=== PATIENT | male | born 1970 | race Caucasian/White ===

== ENCOUNTER 2016-07-31 14:20 | Outpatient (RCR) | payer MEDICAID ==
[~2016-07-31 14:20] MED LIST: CELE1CAP7 PO; CELE20TA; HYDROCODONE PO; LISI10TA4 PO; OMEP40CA2 PO; PRED50TA OR; ROBA500T PO; TRAM50TA2 PO; VICO5TAB; VITA200028 PO
== END 2016-08-25 | disposition home or self-care (01) ==
LOC: M OUTALCOH 14:20
PROVIDERS: ATTEND Psychiatry & Neurology Psychiatry
DX: F15.20 Other stimulant dependence, uncomplicated (principal)

== ENCOUNTER 2017-02-12 10:24 | Inpatient (IN) | payer MEDICAID, OTHER ==
[~2017-02-12] VITALS: Ht 175.3 cm; Wt 89.0 kg
[2017-02-12 11:11] LABS: BASO % 0.7 % (0.0-1.0); EOS # 0.1 K/mm3 (0.0-0.50); EOS % 1.4 % (0.0-3.0); LARGE UNSTAINED CELL # 0.1 K/mm3 (0.0-0.4); LYMPH # 1.4 K/mm3 (1.5-4.5); LYMPH % 19.3 % (24.0-44.0); MEAN CORPUSCULAR HEMOGLOBIN 30.6 pg (27.0-33.0); MEAN CORPUSCULAR HGB CONC 34.8 g/dl (32.0-36.5); MONO # 0.3 K/mm3 (0.0-0.8); MONO % 5.3 % (0.0-5.0); NEUTROPHILS # 4.6 K/mm3 (1.8-7.7); NEUTROPHILS % 71.3 % (36.0-66.0); PLATELET COUNT, AUTOMATED 195 k/mm3 (150-450); RED CELL DISTRIBUTION WIDTH 12.8 % (11.5-14.5); WHITE BLOOD COUNT 6.5 K/mm3 (4.0-10.0)
[2017-02-12 11:37] LABS: ALBUMIN 4.1 GM/DL (3.2-5.2); ALBUMIN/GLOBULIN RATIO 1.32 (1.00-1.93); ALKALINE PHOSPHATASE 68 U/L (45-117); ALT/SGPT 25 U/L (12-78); ANION GAP 8 MEQ/L (8-16); AST/SGOT 15 U/L (15-37); BILIRUBIN,DIRECT 0.2 MG/DL (0.0-0.2); BILIRUBIN,TOTAL 0.7 MG/DL (0.2-1.0); BLOOD UREA NITROGEN 29 MG/DL (7-18); CARBON DIOXIDE LEVEL 26 MEQ/L (21-32); CHLORIDE LEVEL 104 MEQ/L (98-107); CREATININE FOR GFR 1.07 MG/DL (0.70-1.30); GLOMERULAR FILTRATION RATE > 60.0 (>60); GLUCOSE, FASTING 109 MG/DL (70-105); POTASSIUM SERUM 3.6 MEQ/L (3.5-5.1); SODIUM LEVEL 138 MEQ/L (136-145); TOTAL PROTEIN 7.2 GM/DL (6.4-8.2)
[2017-02-12 13:23] LABS: METHADONE URINE NEGATIVE (NEGATIVE)
[2017-02-12 18:45] VITALS: BP 118/74
[2017-02-12] MEDS ORDERED: MAALOX 30 ML SUSP *UDC PO PRN (18:45)
[2017-02-12] MEDS ORDERED: MOM 30ML SUSPENSION UDC PO PRN (18:45)
[2017-02-12] MEDS ORDERED: diphenhydrAMINE 50 MG CAP PO PRN (20:45)
[2017-02-12] MEDS: NICOTINE 14 MG/24 HR TRANSDERMAL TD SCH (21:04)
--- NOTE | 2017-02-12 22:50 | REPUSA ---
Clinical statement: Pain, swelling. Findings: Venous Doppler imaging of the left upper extremity was performed. The internal jugular vein compresses normally and demonstrates normal color Doppler flow. Normal venous wave forms are seen wi thin the subclavian vein. The axillary, brachial, basilic, and cephalic veins compress normally and d emonstrate normal color Doppler flow. Normal augmentation is seen. Impression: No evidence of deep vein thrombosis in the left upper extremity.
[2017-02-12] MEDS: LOTRISONE CREAM 15 GM (BETAMETH/CLOTRIMAZOLE) TOP SCH (23:30)
[2017-02-12] MEDS: LACTOBACILLUS ACIDOPHILUS CAP (BACID) PO SCH (23:30)
[2017-02-12] MEDS: CLINDAMYCIN 150 MG CAP PO SCH (23:30)
[2017-02-13 06:30] VITALS: BP 128/85
[2017-02-13 08:01] LABS: THYROXINE (T4) 10.2 UG/DL (4.5-12.0)
[2017-02-13] MEDS: NICOTINE 14 MG/24 HR TRANSDERMAL TD SCH ×2 (09:00→16:26)
[2017-02-13] MEDS: CLINDAMYCIN 150 MG CAP PO SCH ×3 (09:00→21:51)
[2017-02-13] MEDS: LACTOBACILLUS ACIDOPHILUS CAP (BACID) PO SCH ×2 (09:00→21:51)
[2017-02-13] MEDS: LOTRISONE CREAM 15 GM (BETAMETH/CLOTRIMAZOLE) TOP SCH ×2 (09:00→21:52)
[2017-02-13 18:00] VITALS: BP 109/65
[2017-02-13 21:00] VITALS: BP 114/70
[2017-02-13] MEDS: traZODone 50 MG TAB PO PRN (21:51)
[2017-02-14 07:00] VITALS: BP 141/82
[2017-02-14] MEDS: LOTRISONE CREAM 15 GM (BETAMETH/CLOTRIMAZOLE) TOP SCH ×2 (09:00→21:00)
[2017-02-14] MEDS: NICOTINE 14 MG/24 HR TRANSDERMAL TD SCH (09:02)
[2017-02-14] MEDS: CLINDAMYCIN 150 MG CAP PO SCH ×3 (09:02→21:16)
[2017-02-14] MEDS: LACTOBACILLUS ACIDOPHILUS CAP (BACID) PO SCH ×2 (09:02→21:16)
[2017-02-14] MEDS: FLUoxetine 10 MG CAP PO SCH (09:21)
--- NOTE | 2017-02-14 10:00 | MHHPE ---
DATE OF ADMISSION: 02/12/2017 CHIEF COMPLAINT: Feels depressed. SUBJECTIVE: 46-years old. He is , at the moment, has been apart for about a year. The patient has had previous hospitalizations here, the last one was a few years ago. Please refer to previous summaries for details. He has been diagnosed with a mood disorder, concerns regarding depressive disorder versus bipolar disorder, and has also been diagnosed with a personality disorder. He has not been on any care with any consistency, particularly after discharge from hospitals, and most recently was in correction and was there several months, possibly longer, and was at [facility], just completed it successfully, was released from correction earlier this month, and within a couple of weeks started using methamphetamines again. He says he injected himself with them. He says he had first done that prior to going to correction last year, and subsequent to that, had had other methods, snorting and smoking it as well. Says has been depressed, at least for the better part of the year, and that this was worsening, he was concerned that his condition may deteriorate, to the point where he may have suicidal thoughts. He says has felt hopeless, and would not care if he , but denies that he had any firm plans to kill himself. Says has not seen any psychiatrist or mental health professionals when at [facility], or correction in general, though I am not sure if this is entirely accurate. Says has been depressed, feels his appetite fluctuates, as does his sleep. Feels hopeless and currently has not had much motivational desire to do things. He last used methamphetamines just before coming to the hospital, urine toxicology was positive for amphetamines. Denies any consistent period where he has had an elated mood, or other symptoms indicative of hypomania or bradley. No history of hallucinations. PAST PSYCHIATRIC HISTORY: He has had previous hospitalizations, please see previous notes and summaries, and at least on one occasion, was felt to have come in as he was trying to avoid dealing with drug dealers. MEDICAL HISTORY: He says he has been diagnosed with rheumatoid arthritis. ALLERGIES: No known allergies. MEDICATIONS: He is on no medications on arrival. SOCIAL HISTORY: Raised locally. Says was a "wild kid" and that he would spend time outdoors consistently even before his teenage years, say would get into trouble with school, students, teachers, left in the tenth grade, eventually go his GED. He has had legal difficulties recently, says was found in possession of stolen property, which is why he was put in correction. He is now on parole, says that is supposed to run through April of next year. Says his business banking officer is aware that he used and is here in the hospital. 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 He feels that and his separation from his and children resulted in his picking up methamphetamines for the first time last year. He said he does not have any contact with his and children, they have apparently moved to [place], he indicates there is no legal reason preventing contact. He is, however, in touch with his oldest son, who is local, he says they get along, and he has received word about the rest of the family from him. He has had legal difficulties as mentioned above. MENTAL STATUS EXAMINATION: He is lying in bed. He is cooperative. There is no agitation. No psychomotor retardation. He is coherent. Affect is restricted in range. No abnormal movements noted. He denies any suicidal thoughts or intents, though says would not care if he . No homicidal ideas or intents. No evidence of any psychosis. Intellect is average. No fluctuation of consciousness. His cognition is grossly intact. His judgment is questionable, fair, insight fair. INVESTIGATIONS: This shows urine toxicology positive for amphetamines. Chemistries were essentially okay, complete metabolic profile within normal limits except for glucose is 109. Thyroid function tests 0.245 (0.358-3.74). Complete blood count essentially within normal limits except for neutrophil of 71.3 (36-66), lymphocytes 19.3 (24-44). VITAL SIGNS: Blood pressure 128/85. Pulse 51. Temperature 98.7. ASSESSMENT: 1. Major depressive disorder, moderate, recurrent, without psychotic features. 2. Amphetamine use disorder. 3. Consider personality disorder, Cluster B traits. The patient has been depressed, has had periods of major depression quite possibly, have also been recurrent. PLAN: He is admitted to the inpatient psychiatry unit, placed on relevant precautions, will look at obtaining collateral information, and will receive a medicine consult if indicated. After discussion of the risk, benefits, drawbacks and alternatives, he is to be started on Prozac at 10 mg daily to be titrated up as indicated. He understands this. He will be involved in individual, group and milieu therapy, and he will be discharged with followup once he is stable. He indicates willingness to engage in treatment, including as an outpatient, and I would suggest referring him to a substance abuse program as well. The assessment took 30 minutes. The patient is expected to stay here for the next 5-7 days.
[2017-02-14] MEDS: ACETAMINOPHEN TAB 650MG DOSE (2X325MG) PO PRN (15:21)
[2017-02-14 18:00] VITALS: BP 119/72
[2017-02-14] MEDS: traZODone 50 MG TAB PO PRN (21:16)
--- NOTE | 2017-02-14 23:00 | HPE ---
DATE OF ADMISSION: 02/12/2017 HISTORY OF PRESENT ILLNESS: Please refer to psychiatric history and evaluation for further details on this admission. This examination and history is intended for medical issues, which may need treatment, followup or consult on this 46-year-old male. HOME MEDICATIONS: None. ALLERGIES: No known allergies. SOCIAL HISTORY: He is , recently [facility]. Smoking he states he quit a week ago, but would like a nicotine patch. He still is having cravings. Recreational drug use methamphetamine. PAST MEDICAL HISTORY: 1. History of methicillin-resistant Staphylococcus aureus of the right knee in 05/2016, recurrence on the left side in 2006. 2. Chronic back pain. PAST SURGICAL HISTORY: Tonsillectomy. FAMILY HISTORY: Maternal grandmother had a heart attack. Maternal grandfather a stroke. Paternal grandfather lung cancer. LABORATORY DATA: WBC 6.5, hemoglobin 15.1, hematocrit 32.4. Electrolytes were normal. BUN was 29, creatinine 1.07. TSH was 0.210. Thyroid profile has been ordered for morning. Urine was positive for amphetamines. REVIEW OF SYSTEMS: 10-system review was done. He was complaining of pain and redness in the left antecubital space where he intravenously gave himself methamphetamine. He is complaining of a rash on his feet and lower legs, non-vesicular. Continues to complain of chronic back pain. Otherwise, review of systems unremarkable. OBJECTIVE: A 46-year-old cooperative male in no acute distress. Height 69 inches, weight 89 kg, body mass index (BMI) 29. Blood pressure 113/63, pulse 62, respirations 18, temperature 97.4. GENERAL: The patient is alert and oriented times three. HEENT: Pupils equal and react to light. Extraocular movement intact. Sclerae clear. Conjunctivae normal. No facial asymmetry. Pharynx, tongue, gums pink and moist. Tongue is midline. NECK: Supple without lymphadenopathy. No thyromegaly. No goiter. CHEST: Clear to auscultation without wheeze or retraction. HEART: Regular. ABDOMEN: Benign. Bowel sounds are positive. GENITOURINARY/RECTAL: Not done. EXTREMITIES: No cyanosis, clubbing or edema. Peripheral pulses equal and palpable bilaterally. SKIN: Warm and dry. Left antecubital has a reddened slightly indurated area left antecubital space. Red rash non-vesicular. See lower legs. Low thyroid stimulating hormone (TSH). IMPRESSION/PLAN: Psychiatric plan per psychiatry. Thyroid profile in the morning. Stat ultrasound left antecubital. Rule out deep venous thrombosis (DVT). Clindamycin 300 by mouth one three times a day. Probiotic one by mouth twice a day. Lotrisone to the rash twice a day. Benadryl 50 by mouth every eight hours as needed for itch. Monitor for improvement of the rash in the left antecubital area.
[2017-02-15 07:24] VITALS: BP 121/61
--- NOTE | 2017-02-15 08:32 | IPN ---
DATE: 02/14/2017 CHIEF COMPLAINT: Says feels a bit tired. SUBJECTIVE: Seen for followup. Indicates has felt a bit tired, spent quit a bit of the day sleeping yesterday, also slept at night, used trazodone, feels a bit tired this morning. Moods remain down. MENTAL STATUS EXAMINATION: He is neat. He is cooperative. He is in hospital clothes. He is coherent. Affect is restricted in range. He denies any suicidal thoughts or intents at present. No homicidal ideas or intents. No current evidence of psychosis. Cognition grossly intact. Judgment is fair, as is insight. ASSESSMENT: Major depressive disorder. PLAN: The patient will be started on Prozac at 10 mg daily, and in a couple of days we will look at increasing it to 20 mg daily. The rationale for doing so is discussed. He is to be encouraged to spend more time out of bed and in the meza. VITAL SIGNS: Blood pressure 141/82, pulse 61, temperature 98. He will be seeing the assigned psychiatrist tomorrow.
[2017-02-15] MEDS: LOTRISONE CREAM 15 GM (BETAMETH/CLOTRIMAZOLE) TOP SCH ×2 (09:00→21:00)
[2017-02-15] MEDS: CLINDAMYCIN 150 MG CAP PO SCH ×3 (10:06→22:19)
[2017-02-15] MEDS: LACTOBACILLUS ACIDOPHILUS CAP (BACID) PO SCH ×2 (10:06→22:20)
[2017-02-15] MEDS: FLUoxetine 10 MG CAP PO SCH (10:06)
[2017-02-15] MEDS: NICOTINE 14 MG/24 HR TRANSDERMAL TD SCH (10:06)
[2017-02-15 10:25] VITALS: BP 105/69
[2017-02-15] MEDS: ACETAMINOPHEN TAB 650MG DOSE (2X325MG) PO PRN (15:38)
[2017-02-15 18:16] VITALS: BP 131/70
--- NOTE | 2017-02-15 21:35 | IPN ---
DATE: 02/15/2017 VITAL SIGNS: Temperature 98.7, pulse 74, respirations 16, blood pressure 105/69. CURRENT MEDICATIONS: - Prozac 20 mg by mouth every morning starting tomorrow - trazodone 50 mg nightly as needed HISTORY OF PRESENT ILLNESS: This is a 46-year-old white male, , living by himself, with history of depression dating back for approximately 10 years. He claims the precipitating stressor back then was dealing with his who was bipolar and not getting any treatment. The patient has been feeling depressed for approximately 6 months. His appetite has been stable. His weight has been stable. He feels helpless and hopeless however. His concentration is poor. Level of energy is down. Patient has hypersomnia. He gets little pleasure out of life. His self-esteem is poor. He does have a history of panic attacks. He has chest pain and tightness. He has shortness of breath. He avoids crowded situations. Patient does not consume coffee or energy drinks but does like to drink Mountain Dew. He is warned to avoid caffeine. The patient's drug of choice is methamphetamine. He presented to the emergency department depressed with passive suicidal ideation. The patient feels isolated. He is estranged from his family and young children. His only social contacts are other drug users. He just got out of the [facility] on 01/25/2017. He is applying for [facility] He was accepted by their program. He hopes to be entered soon. The patient has had previous hospitalizations for depression. He was on Celexa the last time he was here at [facility] in 2008. At that time, his drug of choice was cannabis and cocaine. 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 MENTAL STATUS EXAMINATION: The patient is alert, oriented, and cooperative. He spent most of the morning in bed. Affect is sad. Mood is moderately depressed. No current suicidal ideation. He is not psychotic, not hearing voices, no paranoia or thought disorder. Grooming and hygiene is poor. Insight and judgment are fair. DIAGNOSES: 1. Major depression, recurrent. 2. Methamphetamine stimulant use disorder. 3. Panic anxiety disorder with agoraphobia. PLAN: Continue Prozac as ordered by Dr. Vasquez. Staff to contact [facility] regarding discharge planning. Patient encouraged to be involved with hospital milieu. Patient encouraged to get out of bed in the morning to attend the therapy groups.
[2017-02-16 06:24] VITALS: BP 146/79
[2017-02-16] MEDS: ACETAMINOPHEN TAB 650MG DOSE (2X325MG) PO PRN ×3 (09:22→21:15)
[2017-02-16] MEDS: CLINDAMYCIN 150 MG CAP PO SCH ×3 (09:22→21:13)
[2017-02-16] MEDS: NICOTINE 14 MG/24 HR TRANSDERMAL TD SCH (09:22)
[2017-02-16] MEDS: FLUoxetine 20 MG CAP PO SCH (09:22)
[2017-02-16] MEDS: LACTOBACILLUS ACIDOPHILUS CAP (BACID) PO SCH ×2 (09:23→21:13)
[2017-02-16] MEDS: LOTRISONE CREAM 15 GM (BETAMETH/CLOTRIMAZOLE) TOP SCH ×2 (09:23→21:00)
[2017-02-16 18:09] VITALS: BP 118/63
--- NOTE | 2017-02-16 19:28 | IPN ---
DATE: 02/16/2017 VITAL SIGNS: Temperature 98.9, pulse 54, respirations 20, blood pressure 146/79. CURRENT MEDICATIONS: - Prozac 20 mg every morning - trazodone 50 mg at bedtime as needed HISTORY OF PRESENT ILLNESS: Patient tolerated the morning dose of Prozac well. Patient still reports depressive symptoms, but not as severe. His appetite is good. He is having some sleep issues. He tossed and turned all last night. He found it hard to get out of bed this morning, as he felt so tired. Patient did not take the as needed trazodone last night. Patient ventilates about the various stresses that he had in his single room prior to admission. He was especially upset about the bedbugs. Patient has been isolating to his room. He is not going to groups. He states he is phobic about groups. He feels more anxious in group situations. Hopefully, the Prozac will help in this regard. MENTAL STATUS EXAMINATION: Patient is alert, oriented and cooperative. Affect remains sad. Mood is still moderately depressed. He was somewhat more verbal today. He is not voicing any suicidal ideations. No signs of psychosis. Grooming and hygiene is fair. Insight and judgment are fair. DIAGNOSES: 1. Major depression, recurrent. 2. Methamphetamine stimulant use disorder. 3. Panic anxiety disorder with agoraphobia. PLAN: Continue Prozac. Increase trazodone to 100 mg by mouth at bedtime, standing dosage. Encourage social milieu involvement.
[2017-02-16] MEDS: traZODone 50 MG TAB PO SCH (21:13)
[2017-02-17 06:48] VITALS: BP 126/74
[2017-02-17] MEDS: LOTRISONE CREAM 15 GM (BETAMETH/CLOTRIMAZOLE) TOP SCH ×2 (09:36→21:00)
[2017-02-17] MEDS: FLUoxetine 20 MG CAP PO SCH (09:36)
[2017-02-17] MEDS: LACTOBACILLUS ACIDOPHILUS CAP (BACID) PO SCH ×2 (09:36→21:03)
[2017-02-17] MEDS: CLINDAMYCIN 150 MG CAP PO SCH ×3 (09:36→21:03)
[2017-02-17] MEDS: NICOTINE 14 MG/24 HR TRANSDERMAL TD SCH (09:37)
[2017-02-17 18:27] VITALS: BP 117/64
--- NOTE | 2017-02-17 18:46 | REP ---
RIGHT SHOULDER, COMPLETE: 02/17/2017: Clinical history: Shoulder pain. Findings: AC joint shows small spurs inferiorly without widening of the joint space or elevation of the clavicle. No fracture. Glenohumeral joint without fracture, subluxation, dislocation. No abnormal soft-tissue calcification in the bones unremarkable. Impression: 1. 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 No fracture, subluxation, abnormal soft-tissue calcification or other acute finding. Signed by Andrew Marshall MD 02/17/2017 08:17 P
[2017-02-17] MEDS: traZODone 50 MG TAB PO SCH (21:04)
[2017-02-18] MEDS ORDERED: FLUO20CA19 PO (08:51)
[2017-02-18] MEDS ORDERED: CLEO150C PO (08:51)
[2017-02-18] MEDS ORDERED: TRAZ1TAB14 PO (08:51)
[2017-02-18] MEDS: LOTRISONE CREAM 15 GM (BETAMETH/CLOTRIMAZOLE) TOP SCH (09:00)
[2017-02-18] MEDS: NICOTINE 14 MG/24 HR TRANSDERMAL TD SCH (09:19)
[2017-02-18] MEDS: LACTOBACILLUS ACIDOPHILUS CAP (BACID) PO SCH (09:19)
[2017-02-18] MEDS: FLUoxetine 20 MG CAP PO SCH (09:20)
[2017-02-18] MEDS: CLINDAMYCIN 150 MG CAP PO SCH (09:20)
--- NOTE | 2017-02-18 10:30 | IPN ---
DATE: 02/17/2017 VITAL SIGNS: Temperature 98.9, pulse 57, respirations 20, blood pressure 126/74. CURRENT MEDICATION: - Prozac 20 mg every morning - trazodone 50 mg nightly HISTORY OF PRESENT ILLNESS: Patient is tolerating the Prozac well. He has no side effects. No gastrointestinal problems noted. Appetite is good. He slept well last night with the trazodone. He does have some pain in his shoulder. He does have a history of rheumatoid arthritis. He did have a panic attack yesterday while in group. He does have a history of panic attacks in crowded situations. Patient does feel a bit more hopeful about the future. We discussed discharge for tomorrow. He feels comfortable with this option and following up without outpatient mental health and chemical dependence programs. MENTAL STATUS EXAMINATION: Patient is alert, oriented and cooperative. Affect appears brighter. He is less anxious but still did get a panic attack yesterday. Mood less depressed. He is more hopeful. Patient is not suicidal, not homicidal. No signs of psychosis. Grooming and hygiene are fair. Insight is improved. DIAGNOSES: Major depression, recurrent. Methamphetamine stimulant use disorder. Panic anxiety disorder with agoraphobia. PLAN: Continue psychotropics with tentative plan for discharge for tomorrow.
--- NOTE | 2017-02-19 17:43 | MHDS ---
DATE OF ADMISSION: 02/12/2017 DATE OF DISCHARGE: 02/18/2017 VITAL SIGNS: Temperature 99.0, pulse 62, respirations 16, blood pressure 117/64. LABORATORY DATA: CBC and differential within normal limits. Chemistry: BUN was elevated at 29, fasting glucose at 109. TSH low at 0.245, free T4 index elevated at 3.9. T4 and T3 uptake were within normal limits. Toxicology was negative except for amphetamines. DISCHARGE MEDICATIONS: - Prozac 20 mg every morning - trazodone 150 mg at bedtime as needed DISCHARGE DIAGNOSES: 1. Major depression, recurrent. 2. Panic/anxiety disorder with agoraphobia. 3. Methamphetamine stimulant use disorder. CHIEF COMPLAINT: Depression with suicidal ideation. HISTORY OF PRESENT ILLNESS: This is a 46-year-old white male, , recently discharged from [facility] on January 25. Patient has been feeling depressed for several weeks prior to discharge. Patient has been struggling with suicidal ideation since discharge. He is unhappy with his living arrangements. His apartment has bed bugs. Other tenants in the building use drugs. His and the children live out of town, and he cannot see them. Patient feels helpless and hopeless. He had impulses to overdose with amphetamine, which he has done in the past. HOSPITAL COURSE: Patient was seen initially by Dr. Vasquez and then by myself. Patient was started on Prozac 10 mg, quickly increased to Prozac 20 mg every morning. He tolerated it well. He had no side effects. His mood started to improve. His affect improved as well. He had more energy. He was more active, getting out of bed earlier in the morning. He started to attending groups. Suicidal ideation resolved. He was willing to followup with outpatient treatment and to return to his apartment. Patient is being referred to the transitional living services ([facility]) program, and he will followup with chemical dependency program as well. Patient's senior major gifts officer has been informed of the discharge plans. Patient appeared to reach maximal hospital benefit. MENTAL STATUS EXAMINATION: At time of discharge, mood and affect were markedly improved. Affect was quite good. He felt more hopeful about the future. Suicidal ideation had resolved. No signs of depression. Anxiety was minimal. Grooming and hygiene appeared good. He was nonpsychotic. Not hearing voices. No paranoia or thought disorder. No signs of impulsivity or dangerousness. PLAN: Followup with outpatient mental health and chemical dependency services.
== END 2017-02-18 12:20 | disposition home or self-care (01) | DRG 751 ==
LOC: M ED 10:24 → M ED INP 14:55 → M PSY 16:52
PROVIDERS: ADMIT Psychiatry & Neurology Psychiatry; ATTEND Psychiatry & Neurology Psychiatry
DX: F33.9 Major depressive disorder, recurrent, unspecified (principal); R45.851 Suicidal ideations; F40.01 Agoraphobia with panic disorder; F15.10 Other stimulant abuse, uncomplicated; Z79.899 Other long term (current) drug therapy; M54.9 Dorsalgia, unspecified; Z86.14 Personal history of Methicillin resistant Staphylococcus aureus infection; Z80.1 Family history of malignant neoplasm of trachea, bronchus and lung; Z82.3 Family history of stroke; Z82.49 Family history of ischemic heart disease and other diseases of the circulatory system; R94.6 Abnormal results of thyroid function studies; R21 Rash and other nonspecific skin eruption

== ENCOUNTER 2017-05-09 12:06 | Inpatient (IN) | payer MEDICAID, OTHER, SELFPAY ==
[~2017-05-09] VITALS: Ht 175.3 cm; Wt 87.0 kg
[~2017-05-09 12:06] MED LIST changes: +CLEO150C PO; +FLUO20CA19 PO; +TRAZ1TAB14 PO
[2017-05-09] MEDS ORDERED: OMEP10CASR PO (12:21)
[2017-05-09 12:51] LABS: MEAN CORPUSCULAR HEMOGLOBIN 29.1 pg (27.0-33.0); MEAN CORPUSCULAR HGB CONC 33.3 g/dl (32.0-36.5); MEAN CORPUSCULAR VOLUME 87.3 fl (80.0-96.0); RED CELL DISTRIBUTION WIDTH 13.2 % (11.5-14.5); WHITE BLOOD COUNT 5.8 10^3/uL (4.0-10.0)
[2017-05-09 13:31] LABS: ALBUMIN 4.2 GM/DL (3.2-5.2); ALBUMIN/GLOBULIN RATIO 1.14 (1.00-1.93); ALKALINE PHOSPHATASE 76 U/L (45-117); ALT/SGPT 23 U/L (12-78); ANION GAP 4 MEQ/L (8-16); AST/SGOT 11 U/L (15-37); BILIRUBIN,DIRECT 0.3 MG/DL (0.0-0.2); BILIRUBIN,TOTAL 1.2 MG/DL (0.2-1.0); BLOOD UREA NITROGEN 18 MG/DL (7-18); CARBON DIOXIDE LEVEL 34 MEQ/L (21-32); CHLORIDE LEVEL 102 MEQ/L (98-107); CREATININE FOR GFR 0.85 MG/DL (0.70-1.30); GLOMERULAR FILTRATION RATE > 60.0 (>60); GLUCOSE, FASTING 89 MG/DL (70-105); POTASSIUM SERUM 3.5 MEQ/L (3.5-5.1); SODIUM LEVEL 140 MEQ/L (136-145); TOTAL PROTEIN 7.9 GM/DL (6.4-8.2)
[2017-05-09 14:13] LABS: METHADONE URINE NEGATIVE (NEGATIVE)
[2017-05-09] MEDS ORDERED: TRAZ1TAB14 PO (14:25)
[2017-05-09] MEDS ORDERED: FLUO20CA19 PO (14:25)
[2017-05-09] MEDS ORDERED: OMEP20CA3 PO (14:25)
[2017-05-09 16:10] VITALS: BP 113/79
[2017-05-09] MEDS ORDERED: MAALOX 30 ML SUSP *UDC PO PRN (18:00)
[2017-05-09] MEDS ORDERED: MOM 30ML SUSPENSION UDC PO PRN (18:00)
[2017-05-09] MEDS ORDERED: traZODone 50 MG TAB PO PRN (18:00)
[2017-05-09] MEDS: NICOTINE 21MG/24HR 1 EA TRANSDERMAL TD SCH (18:23)
[2017-05-10 06:45] VITALS: BP 124/69
--- NOTE | 2017-05-10 08:17 | ECGEPIP ---
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
[2017-05-10] MEDS: OMEPRAZOLE 20 MG CAP PO SCH (10:13)
[2017-05-10] MEDS: NICOTINE 21MG/24HR 1 EA TRANSDERMAL TD SCH (10:16)
[2017-05-10] MEDS ORDERED: traZODone 50 MG TAB PO PRN (14:30)
[2017-05-10] MEDS: FLUoxetine 20 MG CAP PO SCH (14:56)
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
[2017-05-10 18:00] VITALS: BP 116/72
[2017-05-11 06:55] VITALS: BP 118/73
--- NOTE | 2017-05-11 07:28 | MHHPE ---
DATE OF ADMISSION: 05/09/2017 HISTORY OF PRESENT ILLNESS: Please refer to the psychiatric history and evaluation for further details on this admission. This examination and history is intended for medical issues which may need treatment, followup or consultation on this 46-year-old male. PRIMARY CARE PROVIDER: ALLERGIES: SOCIAL HISTORY: He is . ETOH - none. Smokes - 1 pack of cigarettes per day. Recreational drug use - marijuana. Methamphetamine. Last night he used heroin IV. PAST MEDICAL HISTORY: Rheumatoid arthritis. History of Methicillin-resistant Staphylococcus aureus (MRSA) of the right knee in 05/2016 and initially in 2006. Chronic back pain. Gastroesophageal reflux disease (GERD). PAST SURGICAL HISTORY: Tonsillectomy. FAMILY HISTORY: Maternal grandmother had a heart attack, maternal grandfather a stroke. Maternal grandfather lung cancer. HOME MEDICATIONS: - fluoxetine 20 mg by mouth daily - omeprazole 20 mg by mouth daily - trazodone 150 mg by mouth at bedtime as needed for sleep LABORATORY DATA: CBC was normal. Electrolytes were normal. Total bilirubin was up slightly at 122. Direct bilirubin 0.3. Toxicology was positive for opiates, positive for amphetamines, positive for cannabinoids. REVIEW OF SYSTEMS: 10-systems review was done and his main complaint was of chronic back pain. He is also requesting hepatitis panel and we will get an RA factor as he has not taken any medication or seen anyone for his RA in over a year. PHYSICAL EXAMINATION: 46-year-old cooperative male. No acute distress. Height 69 inches, weight 87 kg, body mass index (BMI) 28.3. Temperature 98.2, pulse 82, respiratory rate 16, blood pressure 113/79, pulse 82, respirations 16. The patient is alert and oriented times three. Pupils equal and reactive to light. Extraocular movements intact. Cornea and sclera clear. Conjunctiva normal. No facial asymmetry. Pharynx, tongue, and gums pink and moist. Tongue is midline. Neck is supple, without lymphadenopathy. No thyromegaly. No goiter. Carotids 2+ without bruit. Chest clear to auscultation, without wheeze or retraction. Heart is regular. Abdomen benign. Bowel sounds positive. /Rectal: Not done. Extremities show equal strength. Full range of motion. No cyanosis, clubbing or edema. Peripheral pulses equal and palpable bilaterally. Skin is warm and dry. IMPRESSION AND PLAN: 1. Psychiatric: Plan per psychiatry. 2. Polysubstance abuse. Monitor for withdrawal. 3. Smoking cessation. Nicotine patch offered. 4. IV drug use. Requests hepatitis panel which has been ordered. 5. History of rheumatoid arthritis. Get an RA factor. 6. History of GERD. Continue omeprazole.
[2017-05-11] MEDS: FLUoxetine 20 MG CAP PO SCH (09:39)
[2017-05-11] MEDS: OMEPRAZOLE 20 MG CAP PO SCH (09:39)
[2017-05-11] MEDS: NICOTINE 21MG/24HR 1 EA TRANSDERMAL TD SCH (09:39)
[2017-05-11 18:33] VITALS: BP 129/67
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
[2017-05-12 06:29] VITALS: BP 114/74
[2017-05-12] MEDS ORDERED: LIDOCAINE 5% (LIDODERM) PATCH TD ONE (09:00)
[2017-05-12] MEDS: FLUoxetine 20 MG CAP PO SCH (09:40)
[2017-05-12] MEDS: OMEPRAZOLE 20 MG CAP PO SCH (09:40)
[2017-05-12] MEDS: NICOTINE 21MG/24HR 1 EA TRANSDERMAL TD SCH (09:40)
[2017-05-12] MEDS: ACETAMINOPHEN TAB 650MG DOSE (2X325MG) PO PRN (09:40)
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
[2017-05-12 18:20] VITALS: BP 120/74
[2017-05-13 06:00] VITALS: BP 118/76
[2017-05-13] MEDS: ACETAMINOPHEN TAB 650MG DOSE (2X325MG) PO PRN (08:09)
[2017-05-13] MEDS: FLUoxetine 20 MG CAP PO SCH (08:09)
[2017-05-13] MEDS: OMEPRAZOLE 20 MG CAP PO SCH (08:09)
[2017-05-13] MEDS: NICOTINE 21MG/24HR 1 EA TRANSDERMAL TD SCH (08:09)
--- NOTE | 2017-05-13 10:02 | MHIPNPDOC ---
[facility] Progress Note Progress Note DATE OF SERVICE: 05/13/17 HISTORY: HISTORY OF THE PRESENT ILLNESS: Patient is a 46-year-old male, who has a history of MDD and polysubstance abuse. His last hospitalization at [facility] was February 12 2017 where he was diagnosed for MDD. He voluntarily came into the [facility] ED on 05/09/17 after attempting overdose with heroin the previous night. He says this first time heroin use was intended to end his life and that he currently has suicidal thoughts without a plan. He says he has been off his psychiatric medications, including Fluoxetine and Trazodone for last 4-5 days and since has been using methamphetamine, cannabis and prior to admission heroine for the first time. He says he had legal trouble when buying tools that were stolen, which led him to spending 3 years in care home, losing his family and livelihood. 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 He says he has lost contact with his children apart from his oldest son and that this causes significant distress. 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 Upon his release from custodial he says he starting using methamphetamine and has had trouble getting his job. He says the drugs have caused damage to his brain and he "doesn't feel right". Interval history 05/13/17: Denies HI,AVH, paranoia. Says he feels the same as yesterday. Says he doesn't want to harm himself, just doesn't want to be here. Says he feels nothing is ever going to go well for him. Says his back hurts and now his shoulder and his R toe is numb which is new. Says he has pain all over, has had it his whole life. Says he has had L4/L5 disk disease. Says he wants to go to the rehab and was told he can if he participates in groups. Says he went to group last night, educational lecture about happiness living. VITAL SIGNS: See below. NEW TEST RESULTS: none CURRENT MEDICATIONS: See below. MENTAL STATUS EXAMINATION: Patient is a 46-year old male, who is nad, looks down, unkempt, cooperative, poor eye contact. Speech: Is decreased in rate, rhythm, volume Language skills are Intact Thought processes including: linear, logical. Thought content: Endorses passive SI, endorses AH (mumbling), Denies HI,VH, paranoia. Abstract reasoning, and computation: good Description of associations: good Description of abnormal or psychotic thoughts: none Judgment: very poor Insight: fair Orientation: Alert and oriented to person place, but not time (doesn't keep track of date) Recent and remote memory: Intact Attention span and concentration: poor Language: appropriate Fund of knowledge: average Mood: "depressed" Affect: dysthymic, lethargic, mood congruent DIAGNOSES: 1. MDD, recurrent episode, severe with psychotic features 2. Methamphetamine use disorder 3. Cannabis use disorder ASSESSMENT: Patient in pain (primarily lower back) and is depressed with passive suicidal. Requires therapy/eduction for drug addictions. Today his environmental conservation officer is coming to assess him/serve his warrant in the afternoon and discuss planning for care home time before transition to rehab. MANAGEMENT PLAN: Continue treatment plan. Continue to monitor for medication side effects/withdrawal. Continue to monitor for safety. TIME SPENT: 20 minutes. Vital Signs Vital Signs Date Time Temp Pulse Resp B/P (MAP) Pulse Ox O2 Delivery O2 Flow Rate FiO2 05/13/17 06:00 97.8 55 18 118/76 (90) 05/12/17 06:29 Room Air 05/09/17 16:10 94 Current Medications Current Medications Acetaminophen (Tylenol Tab) 650 mg Q6HP PRN PO HEADACHE or DISCOMFORT Last administered on 05/13/17 08:09; Start 05/09/17 at 18:00; Stop 06/08/17 at 17 :59 Al Hydrox/Mg Hydrox/Simethicone (Mylanta) 30 ml Q4HP PRN PO HEARTBURN/ INDIGESTION; Start 05/09/17 at 18:00; Stop 06/08/17 at 17:59 Fluoxetine HCl (PROzac) 20 mg DAILY PO Last administered on 05/13/17 08:09; Start 05/10/17 at 09:00; Stop 06/09/17 at 08:59 Home Med (Med Rec Complete!) ASDIRECTED XX ; Start 05/09/17 at 14:30; Stop at 14:30; Status DC Magnesium Hydroxide (Milk Of Magnesia) 30 ml DAILYPRN PRN PO CONSTIPATION; Start 05/09/17 at 18:00; Stop 06/08/17 at 17:59 Nicotine (Nicoderm Cq 21mg) 1 patch DAILY TD Last administered on 05/13/17 08 :09; Start 05/09/17 at 09:00; Stop 06/08/17 at 08:59 Omeprazole (PriLOSEC) 20 mg DAILY PO Last administered on 05/13/17 08:09; Start 05/10/17 at 09:00; Stop 06/09/17 at 08:59 Trazodone HCl (Desyrel) 50 mg QHSP PRN PO INSOMNIA; Start 05/09/17 at 18:00; Stop 05/10/17 at 14:32; Status DC Trazodone HCl (Desyrel) 150 mg QHSP PRN PO INSOMNIA; Start 05/10/17 at 14:30; Stop 06/09/17 at 14:29 Allergies Coded Allergies: No Known Allergies (Verified , 05/09/17) MARIANN CASTANON PGY-1 May 13, 2017 10:02
[2017-05-13] MEDS ORDERED: traZODone 100 MG TAB PO PRN (14:15)
--- NOTE | 2017-05-13 14:37 | CR ---
DATE OF CONSULTATION: REFERRING PROVIDER: Dr. Cm Tucker PGY-1/ Dr. Saucedo CHIEF COMPLAINT: 1. Low back pain. Left leg pain. 2. Neck pain. 3. Right arm pain/paresthesia. HISTORY OF PRESENT ILLNESS: Jez is a 46-year-old gentleman admitted with major depressive disorder with a history of polysubstance abuse. Reports a 5-day history of low back pain that radiates into his left lateral thigh and foot. Denies precipitating event. Denies any fall injuries. States he has always had some low back issues but never really was seen or treated for this. Also reports today that he is having right neck and right arm pain. Right arm is numbing and tingling into the fingertips. Has not seen a regular physician for a physical in several years. Denies recent illness or fever. Denies bowel or bladder incontinence. Appears relatively comfortable except with muscle strength testing or range of joint motion of the lower extremities and with range of joint motion testing of the spine. PAST MEDICAL HISTORY: Rheumatoid arthritis. Methicillin resistant Staphylococcus aureus (MRSA) of the right knee. Chronic back pain. Gastroesophageal reflux disease, (GERD). PAST SURGICAL HISTORY: Tonsillectomy. FAMILY HISTORY: Cardiac - maternal grandmother, paternal grandfather - stroke. Paternal grandfather - lung cancer. HOME MEDICATIONS: - fluoxetine 20 daily -omeprazole 20 daily - trazodone 150 mg at bedtime. ALLERGIES: No known drug allergies. LABORATORY- TOXICOLOGY: High urine opiates, high amphetamines, High cannabinoids. REVIEW OF SYSTEMS: 10-point review of systems was done with the main complaint of chronic back pain. PHYSICAL EXAMINATION: Awake, alert, pleasant, cooperative. No acute distress. Vital signs: Temperature 97.8, pulse 55, respirations 18, blood pressure 118/76. Cardiac: S1, S2. Normal rate and rhythm. Respiratory - lung sounds clear. Respirations nonlabored. Musculoskeletal - muscle strength testing 5/5 lower extremities. Reports increase in right low back pain with left leg muscle strength testing. Reports decreased sensation to light touch left lateral thigh and calf compared to right. Inspection of spine nontender with palpation over the LS axis and lumbar paraspinal. Range of motion of the spine is limited with reports of severe aggravation of low back pain with flexion at less than 45 degrees in extension less than 20 degrees. Cervical spine - nontender with palpation over the cervical axis and cervical paraspinal. Range of motion of the neck is full without significant increases in pain. Range of motion of the upper extremities is full without significant increases in pain. Equal strong senior architect strength bilateral hands. Muscle strength of the upper extremities 5/5. ASSESSMENT: 1. Low back pain. 2. Left leg pain/paresthesia. 3. Cervicalgia. 4. Right arm paresthesia. PLAN: Recommend MRI of the LS axis and C-spine. Start meloxicam 7.5 mg twice a day. Re-evaluate after evaluation of MRI. Thank you for allowing us to participate in the care of your patient Jez Beltran. Please call me with any questions or concerns. Sincerely, Hazel Jara Family Nurse Practitioner. [facility]
[2017-05-13 18:00] VITALS: BP 135/86
[2017-05-14 07:00] VITALS: BP 125/68
[2017-05-14] MEDS: NICOTINE 21MG/24HR 1 EA TRANSDERMAL TD SCH (08:31)
[2017-05-14] MEDS: ACETAMINOPHEN TAB 650MG DOSE (2X325MG) PO PRN (08:32)
[2017-05-14] MEDS: OMEPRAZOLE 20 MG CAP PO SCH (08:32)
[2017-05-14] MEDS ORDERED: FLUoxetine 20 MG CAP PO SCH (09:00)
[2017-05-14] MEDS ORDERED: LORazepam 2 MG TAB PO STA (11:43)
[2017-05-14] MEDS ORDERED: FLUO20CA19 PO (11:55)
[2017-05-14] MEDS ORDERED: DEPA250T32 PO (11:55)
[2017-05-14] MEDS ORDERED: TRAZ10TA PO (11:55)
[2017-05-14] MEDS ORDERED: NICO21PAT TD (11:55)
[2017-05-14] MEDS ORDERED: QUET1TAB9 PO (11:55)
[2017-05-14] MEDS ORDERED: DIVALPROEX 250 MG TAB PO SCH (16:00)
[2017-05-14] MEDS ORDERED: QUEtiapine FUMARATE 200 MG TAB PO SCH (16:00)
--- NOTE | 2017-05-14 16:15 | MHDSPDOC ---
[facility] Discharge Summary Discharge Summary DATE OF ADMISSION: May 09, 2017 at 14:42 DATE OF DISCHARGE: May 14, 2017 at 12:35 DISCHARGE DIAGNOSES: 1. Antisocial Personality Disorder 2. Polysubstance Use Disorder 3. Borderline Personality traits 3. Substance induced mood disorder, r/o Bipolar disorder 4. Malingering REASON FOR ADMISSION: CHIEF COMPLAINT: "I wanted to end my life" HISTORY OF THE PRESENT ILLNESS: Patient is a 46-year-old male, who has a history of MDD and polysubstance abuse. His last hospitalization at [facility] was February 12 2017 where he was diagnosed for MDD. He voluntarily came into the [facility] ED on 05/09/17 after attempting overdose with heroin the previous night. He says this first time heroin use was intended to end his life and that he currently has suicidal thoughts, without a plan. He says he has been off his psychiatric medications, including Fluoxetine and Trazodone for last 4-5 days and since has been using methamphetamine, cannabis and prior to admission heroin for the first time. He says he had legal troubles when buying tools that were stolen, which led him to spending 3 years in nursing home, losing his family and livelihood. 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 He says he has lost contact with his children apart from his oldest son and that this causes significant distress. Upon his release from detention he says he starting using methamphetamine and has had trouble getting his career/life back. He says the drugs have caused damage to his brain and he "doesn't feel right". He also mentions he has a girlfriend from when he was 14, who came to visit him, who has terminal bone cancer which he found out about after stopping his medications and that he lives in a rundown apartment, adds to his depressive symptoms. He says the depressive symptoms started after leaving nursing home , before starting his drug use. CONSULTANTS INVOLVED: PAIN MANAGEMENT TREATMENT AND PROGRESS ON THE UNIT : Patient was met and whe he spoke to tw and to Dr. Tucker, he said he didnt want to continue living like this, he said he had messed up his life, that his marriage had failed and was not able to see his children due to his drug use/abuse. He mentioned he once had a solid economic position, a happy life and had lost everything because of drugs. He has been using methamphetamines and cannabis prior to admission but he was planning to use heroin to commit suicide. He mentioned he had to spend time in nursing home because he was found with stolen tools that apparent were worth $7,000.00 and later on for drugs problems. Mr. Beltran says he came to the ED to receive help but he doesn't get up from bed, he doesn't attend groups. Consuelo Allen and this fiction and nonfiction writer prose met with him on 05/12 and told him that if he really wanted to overcome his depression and was interested in going to rehab, he had to attend groups to learn how to cope with his personal problems and his drug use. That very same day he was able to contract for safety with one of the staff members and said his suicidal thoughts were vague. He complained and said he "couldn't get up in the morning because he couldn't sleep at night". This fiction and nonfiction writer prose explained to him he wouldn't be able to sleep at night because he was sleeping all day long and asked him to attend groups, since our intention with Cotton Weigher Operator was to send him to a Rehab Program. On 05/13/17 he mentioned having vague suicidal thoughts, saying that if he was not being sent to Rehab he would kill himself upon discharge. This fiction and nonfiction writer prose increased Fluoxetine to 40 mgs. Po daily and decreased Trazodone from 150 mgs. PO QHS to 100 mgs. PO QHS, thinking this could have been contributing to his daytime sleepiness, but it was not the medication, it was his inactivity during the day that impaired his sleep at night. He was told that he had to start getting better at the [facility], make an effort to improve, go to groups, talk to his Nurse, make a safety plan for the future because otherwise he was not going to succeed and if he needed to go to Rehab he needed to be more active because in Rehab they were going to demand from him getting early and participate in the program activities. His Boot And Shoe Laborer mentioned shortly after the conversation we had with him that she needed to come to talk to him because he was going to be arrested upon discharge. TW and Cotton Weigher Operator Consuelo Allen mentioned to his Boot And Shoe Laborer that maybe going to nursing home was not the safest option for him at this time, that perhaps it was better send him to Rehab but she said that they would arrest him first, take him to nursing home and then, from nursing home, transfer him to Rehab. On 05/14/17 when he spoke with one of the Discharge planners he said he felt better, mentioned he WAS NOT SUICIDAL, said he was motivated to go to Rehab. On 05/14/17 he was started on Depakote 250 mgs. PO TD, Seroquel 200 mgs PO TID and Ativan 2 mgs PO STAT, because he became anxious when he heard his Boot And Shoe Laborer was coming to see him.Mental Health Worker, Ronit Boyle, was not able to tell him that his Boot And Shoe Laborer wanted to tell him he was being arrested when she came in to [facility] because Boot And Shoe Laborer Brad requested not to tell him since she was was concerned about the level of violence she has observed in this man during 4 previous arrests. She had mentioned she wanted to come with other police officers to talk to him and arrest him because she didn't want him to become too volatile and violent at the [facility]. Boot And Shoe Laborer decided to come and pick him up because HE WAS NOT SUICIDAL and she didn't want him to become aggressive against staff. He met with his Nurse, Nora Cabrera who read the discharge plan and at that moment he disagreed with the plan and refused to sign it. He was told this fiction and nonfiction writer prose was waiting for him to speak with him and his chief growth officer at the [employer] [employer] [facility] and initially he seemed to agre to meet with us there but then he didn't want to leave the Unit and for that reason, the Police Officers had to enter [facility], unarmed and were able to talk to him and walk him out of the [facility] without any problem. HOSPITAL COURSE: As above. DISCHARGE ASSESSMENT: The patient was discharged to Boot And Shoe Laborer Brad and three other police officers who took him to nursing home, and they said that after being in nursing home, they are going to send him to a Rehab Program. He was calm, alert , not violent, not psychotic and not showing suicidal activity. He was still interested in going to Rehab and a person who has goals is because he wants to continue living, it is not congruent with suicidality. The patient knew he would have to face his service officer sooner or later and he knew there was a high chance of going to nursing home. Probably for that reason he had said he was suicidal, to be able to remain in [facility] and avoid nursing home. MENTAL STATUS EXAMINATION ON DISCHARGE (This mental examination was done mostly by observation, when patient spoke to other staff members) Patient is a 46-year old male, who is laying in bed, sleepy, unmotivated, with poor eye contact, poor hygiene and poor grooming. Speech is Low volume, normal rate and normal tone. Monosyllabic answers. Language skills are fair Thought processes including: Intact. Thought content: Thinking about going to Rehab. Abstract reasoning, and computation: Fair Description of associations: Good Description of abnormal or psychotic thoughts: Denies SI/HI, A/V hallucinations and thought delusions. Until yesterday he verbalized vague suicidal thoughts like "Maybe I would kill myself but maybe I wouldn't". Today, he denied SI to staff members but when the Police came, he changed and he said he had them but this was in an attempt to stay at [facility] and avoid nursing home Judgment: Limited Insight: Limited Orientation to: Oriented to place and person. Recent and remote memory: Fair Attention span and concentration: Fair. Language: Normal. Fund of knowledge: Not assessed at this time. Mood: "I want to go to Rehab" Affect: Congruent to mood, constricted. MEDICATIONS ON DISCHARGE: - Fluoxetine 40 mgs PO QD for depression - Trazodone 100 mgs. PO QHS for sleep - Depakote 250 mgs PO TID for impulse control/mood stabilizer -Seroquel 200 mgs. PO TID for mood stabilization - Omeprazole 20 mgs. PO QD - Nicotine patch, 21 mgs./24 hrs, 1 patch daily PLAN/FOLLOWUP ARRANGEMENTS: Patient was arrested, taken to Custodial and will be transferred to Rehab Program from Custodial The amount of time spent in the coordination of care for this patient was approximately 45 minutes. Vital Signs/I&Os Vital Signs Date Time Temp Pulse Resp B/P (MAP) Pulse Ox O2 Delivery O2 Flow Rate FiO2 05/14/17 07:00 97.4 74 16 125/68 (87) 05/12/17 06:29 Room Air 05/09/17 16:10 94 Medications Scheduled Divalproex Sodium (Depakote) 250 Mg Tab, 250 MG PO TID for MOOD, #21 Fluoxetine Hcl (Fluoxetine HCl) 20 Mg Cap, 40 MG PO DAILY for MOOD, #14 Nicotine (Nicotine Transdermal Syst) 21 Mg/24 Hr Dis, 1 PATCH TD DAILY for SMOKING CESSATION, #10 Omeprazole (Omeprazole) 20 Mg Cap, 20 MG PO DAILY, (Reported) Quetiapine Fumerate (Quetiapine Fumarate) 200 Mg Tab, 200 MG PO TID for MOOD, # 21 Scheduled PRN Trazodone HCl (Trazodone HCl) 100 Mg Tab, 100 MG PO QHSP PRN for INSOMNIA, #5 Allergies Coded Allergies: No Known Allergies (Verified , 05/09/17) WINNIE MCGINNIS MD May 14, 2017 16:15
== END 2017-05-14 12:35 | DRG 752 ==
LOC: M ED 12:06 → M ED INP 14:42 → M PSY 16:17 → UNDODISIN 05-14 12:35
PROVIDERS: ADMIT Psychiatry & Neurology Psychiatry; ATTEND Psychiatry & Neurology Psychiatry
DX: F60.2 Antisocial personality disorder (principal); F11.10 Opioid abuse, uncomplicated; F12.10 Cannabis abuse, uncomplicated; F15.10 Other stimulant abuse, uncomplicated; M06.9 Rheumatoid arthritis, unspecified; K21.9 Gastro-esophageal reflux disease without esophagitis; M54.2 Cervicalgia; F17.210 Nicotine dependence, cigarettes, uncomplicated; R20.0 Anesthesia of skin; M79.662 Pain in left lower leg; F60.3 Borderline personality disorder; M54.5 Low back pain; Z86.14 Personal history of Methicillin resistant Staphylococcus aureus infection; Z65.2 Problems related to release from prison; Z79.899 Other long term (current) drug therapy; Z91.5 Personal history of self-harm; Z76.5 Malingerer [conscious simulation]

== ENCOUNTER 2018-10-27 15:14 | Emergency (ER) | payer MEDICAID ==
[~2018-10-27] VITALS: Ht 175.3 cm; Wt 95.9 kg
[~2018-10-27 15:14] MED LIST changes: +DEPA250T32 PO; +NICO21PAT TD; +OMEP10CASR PO; +OMEP20CA3 PO; +QUET1TAB9 PO; +TRAZ10TA PO
[2018-10-27 16:19] LABS: BASO # 0.1 10^3/uL (0.0-0.2); EOS % 0.6 % (0.0-3.0); HEMATOCRIT 49.8 % (42.0-52.0); LYMPH # 2.1 10^3/uL (1.5-4.5); LYMPH % 33.7 % (24.0-44.0); MEAN CORPUSCULAR HEMOGLOBIN 27.6 pg (27.0-33.0); MEAN CORPUSCULAR HGB CONC 32.1 g/dl (32.0-36.5); MONO # 0.4 10^3/uL (0.0-0.8); MONO % 5.7 % (0.0-5.0); NEUTROPHILS # 3.6 10^3/uL (1.8-7.7); NEUTROPHILS % 57.6 % (36.0-66.0); PLATELET COUNT, AUTOMATED 261 10^3/uL (150-450); RED BLOOD COUNT 5.79 10^6/uL (4.30-6.10); WHITE BLOOD COUNT 6.3 10^3/uL (4.0-10.0)
[2018-10-27 16:42] LABS: ALBUMIN 3.7 GM/DL (3.2-5.2); ALT/SGPT 682 U/L (12-78); BILIRUBIN,DIRECT 2.2 MG/DL (0.0-0.2); BILIRUBIN,TOTAL 2.9 MG/DL (0.2-1.0); BLOOD UREA NITROGEN 15 MG/DL (7-18); CALCIUM LEVEL 9.5 MG/DL (8.5-10.1); CARBON DIOXIDE LEVEL 30 MEQ/L (21-32); CHLORIDE LEVEL 103 MEQ/L (98-107); CREATININE FOR GFR 0.87 MG/DL (0.70-1.30); GLOMERULAR FILTRATION RATE > 60.0 (>56); GLUCOSE, FASTING 96 MG/DL (70-100); LIPASE 152 U/L (73-393); POTASSIUM SERUM 4.4 MEQ/L (3.5-5.1); SODIUM LEVEL 138 MEQ/L (136-145); TOTAL PROTEIN 7.3 GM/DL (6.4-8.2)
[2018-10-27] MEDS ORDERED: NS 1,000 ML IV ONE (17:30)
--- NOTE | 2018-10-27 18:30 | REP ---
Clinical: Acute right upper quadrant abdominal pain. Technique: Hatfield scale ultrasound using curved array transducer. Findings: The liver and pancreas are normal in contour, size, and echogenicity without focal hepatic or pancreatic lesions identified. The gallbladder demonstrates findings to suggest adenomyomatosis without wall thickening, pericholecystic fluid, or cholelithiasis. No sonographic Bauer's sign elicited. No biliary ductal dilatation is appreciated, and the common bile duct measures 6.4 mm diameter. The right kidney is normal in reniform shape without hydronephrosis and measures 11.3 x 5.7 x 4.7 cm. No ascites. Visualized portions of the abdominal aorta normal. Impression: Possible adenomyomatosis of the gallbladder. Otherwise normal right upper quadrant abdominal ultrasound. Electronically Signed by Jaxon Crouch MD 10/27/2018 06:21 P
[2018-10-27] MEDS ORDERED: ONDA4TAB6 PO (20:42)
[2018-10-27 20:47] VITALS: BP 149/83
[2018-10-27 20:51] LABS: ACETAMINOPHEN LEVEL < 2.0 UG/ML (10.0-30.0)
[2018-10-28 10:04] LABS: HEPATITIS B SURFACE ANTIGEN NEGATIVE (NEGATIVE)
[2018-10-28 10:32] LABS: HEPATITIS B CORE ANTIBODY IGM NEGATIVE (NEGATIVE); HIV 1&2 SCREEN CENTAUR NEGATIVE (NEGATIVE)
[2018-10-28 10:33] LABS: HEPATITIS A ANTIBODY IGM NEGATIVE (NEGATIVE)
[2018-10-28 11:00] LABS: HEPATITIS C VIRUS ABY INDEX 8.2 INDEX (<0.8)
[2018-10-29 08:23] LABS: CYTOMEGALOVIRUS IgG ANTIBODY <0.60 U/mL (0.00-0.59); CYTOMEGALOVIRUS IgM ANTIBODY <30.0 AU/mL (0.0-29.9)
[2018-10-30 00:07] LABS: EBV AB TO NUCLEAR ANTIGEN >600.0 U/mL (0.0-17.9); EBV VIRAL CAPSID AG IgG 79.6 U/mL (0.0-17.9); EBV VIRAL CAPSID AG IgM <36.0 U/mL (0.0-35.9)
--- NOTE | 2018-11-01 14:04 | ED PDOC ---
Post-Departure Follow-Up dr grimaldo faxed formal report of us for fu Alysha Olivera MD Nov 01, 2018 14:04
== END 2018-10-27 20:56 | disposition home or self-care (01) ==
LOC: M ED 15:14
DX: R79.89 Other specified abnormal findings of blood chemistry (principal); R17 Unspecified jaundice; K21.9 Gastro-esophageal reflux disease without esophagitis; F17.210 Nicotine dependence, cigarettes, uncomplicated
CPT/HCPCS: 36415; 76705; 80048; 80076; 81001; 83690; 85025; 86644; 86645; 86663; 86664; 86665; 86705; 86709; 86803; 87340; 87389; 87521; 96360; 96361; 99284; G0480

== ENCOUNTER 2018-10-30 20:55 | Inpatient (IN) | payer MEDICAID ==
[~2018-10-30] VITALS: Ht 175.3 cm; Wt 90.9 kg
[~2018-10-30 20:55] MED LIST changes: +ONDA4TAB6 PO
[2018-10-30 21:37] LABS: HEMATOCRIT 47.5 % (42.0-52.0); HEMOGLOBIN 15.2 g/dl (13.5-17.5); MEAN CORPUSCULAR HEMOGLOBIN 28.3 pg (27.0-33.0); MEAN CORPUSCULAR VOLUME 88.3 fl (80.0-96.0); PLATELET COUNT, AUTOMATED 267 10^3/uL (150-450); RED BLOOD COUNT 5.38 10^6/uL (4.30-6.10)
[2018-10-30 21:57] LABS: AMPHETAMINES LEVEL URINE NEGATIVE (NEGATIVE); BARBITURATES URINE NEGATIVE (NEGATIVE); BENZODIAZEPINES URINE NEGATIVE (NEGATIVE); CANNABINOIDS URINE POSITIVE (NEGATIVE); COCAINE METABOLITE URINE NEGATIVE (NEGATIVE); METHADONE URINE NEGATIVE (NEGATIVE); OPIATES URINE NEGATIVE (NEGATIVE); PHENCYCLIDINE URINE NEGATIVE (NEGATIVE)
[2018-10-30 22:21] LABS: ACETAMINOPHEN LEVEL < 2.0 UG/ML (10.0-30.0); ALBUMIN 3.4 GM/DL (3.2-5.2); ALT/SGPT 294 U/L (12-78); BILIRUBIN,DIRECT 1.6 MG/DL (0.0-0.2); BILIRUBIN,TOTAL 1.9 MG/DL (0.2-1.0); BLOOD UREA NITROGEN 15 MG/DL (7-18); CALCIUM LEVEL 8.6 MG/DL (8.5-10.1); CARBON DIOXIDE LEVEL 31 MEQ/L (21-32); CHLORIDE LEVEL 105 MEQ/L (98-107); CREATININE FOR GFR 0.98 MG/DL (0.70-1.30); ETHYL ALCOHOL (ETHANOL) < 0.003 % (0.000-0.010); GLOMERULAR FILTRATION RATE > 60.0 (>56); GLUCOSE, FASTING 99 MG/DL (70-100); POTASSIUM SERUM 4.2 MEQ/L (3.5-5.1); SALICYLATE LEVEL < 1.7 MG/DL (5.0-30.0); SODIUM LEVEL 141 MEQ/L (136-145); THYROID STIMULATING HORMONE 0.777 uIU/ML (0.358-3.740); TOTAL PROTEIN 6.6 GM/DL (6.4-8.2)
[2018-10-31] MEDS: NICOTINE 21MG/24HR 1 EA TRANSDERMAL TD SCH (09:00)
[2018-10-31] MEDS ORDERED: BENA25CA4 PO (11:10)
[2018-10-31] MEDS ORDERED: OMEP20TA PO (11:10)
[2018-10-31] MEDS ORDERED: OLANZapine ORAL DISINTEGRATING TAB 5MG PO PRN (15:15)
[2018-10-31] MEDS ORDERED: MOM 30ML SUSPENSION UDC PO PRN (15:15)
[2018-10-31 16:35] VITALS: BP 125/85
--- NOTE | 2018-10-31 21:29 | ECGEPIP ---
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
[2018-11-01 06:46] VITALS: BP 107/65
[2018-11-01] MEDS: NICOTINE 21MG/24HR 1 EA TRANSDERMAL TD SCH (09:40)
--- NOTE | 2018-11-01 14:32 | CR ---
DATE OF CONSULTATION: 11/01/2018 REASON FOR CONSULTATION: Medical management. HISTORY OF PRESENT ILLNESS: The patient is a 48-year-old gentleman who was admitted to inpatient mental health unit for thoughts of hurting himself. The patient stated he has not been well. He has been living on [address] for the past 5 months. He has no support and he had thoughts of hurting himself in the past one month. Patient with a history of rheumatoid arthritis, chronic back pain, gastroesophageal reflux disease (GERD), has not been followed by any healthcare provider in several months. The patient states that he has not taken any medications for more than six months. The patient has a history of marijuana use and IV methamphetamine use. He was just informed that he has hepatitis C. PAST MEDICAL HISTORY: Rheumatoid arthritis. Fibromyalgia. History of Methicillin-resistant Staphylococcus aureus (MRSA) of the right knee in 2016. Gastroesophageal reflux disease (GERD). Newly diagnosed hepatitis C. PAST SURGICAL HISTORY: Tonsillectomy. SOCIAL HISTORY: Patient smoked one pack daily for the past 30 years. Denied alcohol use. Patient smoked marijuana and used IV methamphetamine. REVIEW OF SYSTEMS: GENERAL: No fever, no chills. HEENT: No vision changes, no auditory changes. CARDIOVASCULAR: No chest pain or palpitations. RESPIRATORY: No shortness of breath or cough. No sputum production. GASTROINTESTINAL (GI): No nausea. No vomiting. No abdominal pain. No diarrhea. MUSCULOSKELETAL: Denies any new joint pain or muscle pain. OBJECTIVE: VITAL SIGNS: Temperature 98.9, pulse 56, respirations 12, blood pressure 107/65. GENERAL: No signs of acute distress. Patient is alert and awake. HEENT: Normocephalic, atraumatic. Extraocular motors grossly intact. CARDIOVASCULAR: Positive S1 and S2, regular rate. LUNGS: Clear to auscultation bilaterally. ABDOMEN: Soft, nontender, nondistended. Bowel sounds present. EXTREMITIES: No peripheral edema appreciated. Most recent labs performed on 10/30/2018 showed WBC 6, hemoglobin 15.2, hematocrit 47.5, platelet count 267. Sodium 141, potassium 4.2, chloride 105, carbon dioxide 31, BUN 15, creatinine 0.9, GFR greater than 60, fasting glucose 99, calcium 86, total bilirubin is 1.9, direct bilirubin is 1.6, AST 45, ALT 294, alkaline phosphatase 154, total protein 6.6, albumin 3.4, TSH 0.77. ASSESSMENT/PLAN: 1. Newly diagnosed hepatitis C. Laboratory tests performed 10/27/2018, hepatitis C antibody is positive, waiting for hepatitis C or A quantity. Patient did have a history of IV methamphetamine use. HIV negative. Hepatitis B negative. Will follow-up with hepatitis C virus genotype. 2. Suicidal ideation. Patient is admitted to [facility]. Defer the patient's psychiatric management to primary psychiatric team. 3. Chronic marijuana use. 4. History of rheumatoid arthritis. According to the patient, he has not been taking any medications for the past several months. Patient does not complain of any musculoskeletal complaints at this moment. 5. History of gastroesophageal reflux disease. Patient uses Mylanta as needed. 6. Deep vein thrombosis (DVT) prophylaxis. Encourage ambulation.
--- NOTE | 2018-11-01 14:56 | MHHPE ---
DATE OF ADMISSION: 10/31/2018 IDENTIFYING DATA: He is a 48-year-old male, , father of five children, homeless, supported by food stamps, was admitted because of suicidal thoughts. HISTORY OF PRESENT ILLNESS: The patient is self referred. He reports that he has been depressed for the last 6 years ever since he has been in [facility]. He was released from [facility] about 6 months ago and since then his depression has increased, it worsened in the last 2 months. His sleep is decreased. His self esteem is very poor and appetite is also disturbed. He also has suicidal thoughts off and on with a vague plan to shoot IV drugs to commit suicide. The patient has a history of mood swings with racing thoughts. At times he feels hyper. He does not know his diagnosis of the past. He has had at least three to four psychiatric hospitalizations, last one at [facility] about 2 years ago. The patient has a history of panic attacks with agoraphobia. His is stress is homelessness, financial, no support from outside and medical issues. ALLERGIES: None. PAST PSYCHIATRIC HISTORY: He has had two psychiatric hospitalizations at [facility]. He does not remember the medications he was taking in the past except Depakote. SUICIDAL HISTORY: He attempted suicide once by shooting drugs. DRUGS/ALCOHOL HISTORY: The patient has significant drug and alcohol problems. For the last 6 months he has been using methamphetamine. Cannabis, he has been using for the last 30 years. He uses cannabis every day. Cocaine off and on. The patient has a history of using IV drugs. LEGAL HISTORY: He reports that he was arrested for possession of stolen things. He has been released from [facility] 6 months ago. MEDICAL HISTORY: He has a history of hepatitis C and also complains of pain in the stomach. FAMILY HISTORY: Denies family history of mental illness. PERSONAL HISTORY: He was born and raised in [place] by both parents. He has one sister. Dropped out of school in the 9th grade. 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 For the last 5 years he has been . He has five children who live with the mother. Currently, he is homeless. MENTAL STATUS EXAMINATION: He is well built, cooperative. Made intermittent eye contact. Personal hygiene is fair. Speech rate, rhythm and volume are good, spontaneous. Thought process linear and goal directed. No tangentiality or circumstantiality. Thought content: Denied any delusions. Currently denies any suicidal thoughts. His memory, immediate, remote and recent, are good. He is alert and oriented to time, place and person. Mood is depressed. Affect is constricted. VITAL SIGNS: Temperature 98.9, pulse 56, respiratory rate is 12, blood pressure is 107/55. CBC within normal limits. His ALT was 294, alkaline phosphatase 154, AST was 45. Toxicology was positive for cannabis. REVIEW OF SYSTEMS: CONSTITUTIONAL: No night sweats. No fever. HEENT: Negative for epistaxis or headache. RESPIRATORY: No cough. No shortness of breath. No wheezing. CARDIOVASCULAR: Negative for chest pain and dyspnea. GASTROINTESTINAL: No abdominal pain. No change in bowel habits. GENITOURINARY: No dysuria. No trouble voiding. No hematuria. MUSCULOSKELETAL: Negative for joint pain or joint swelling. NEUROLOGIC: Negative for gait disturbances, numbness and tingling. DIAGNOSES: 1. Mood disorder, not otherwise specified. 2. Rule out bipolar disorder, not otherwise specified. 3. Polysubstance use disorder. 4. Hepatitis C. TREATMENT/RECOMMENDATIONS: Admit to inpatient mental health unit. Will be followed up by it architect for medical needs. The patient will be seen by social work and case management. He will be placed on appropriate precautions, suicide precautions with 15 minute checks. He will participate in appropriate activities, including individual, group and milieu therapy. The patient will receive psychoeducation. The patient will be placed on Abilify 5 mg once daily and citalopram 10 mg once daily. The patient is on trazodone 50 mg at night as needed. Followup with it architect recommendations regarding his increased liver enzymes, hepatitis C.
[2018-11-01] MEDS: CitaloPRAM (CeleXA) 10 MG TABLET PO SCH (15:29)
[2018-11-01 18:00] VITALS: BP 130/73
[2018-11-01] MEDS: IBUPROFEN 400 MG TAB PO PRN (20:35)
[2018-11-01] MEDS: traZODone 50 MG TAB PO PRN (20:36)
[2018-11-01] MEDS: MAALOX 30 ML SUSP *UDC PO PRN (20:49)
[2018-11-02 06:50] LABS: RHEUMATOID FACTOR QUANT < 10.0 IU/ML (<15.0)
[2018-11-02 07:00] VITALS: BP 127/77
[2018-11-02] MEDS: CitaloPRAM (CeleXA) 10 MG TABLET PO SCH (09:01)
[2018-11-02] MEDS: IBUPROFEN 400 MG TAB PO PRN (09:02)
[2018-11-02] MEDS: NICOTINE 21MG/24HR 1 EA TRANSDERMAL TD SCH (09:02)
--- NOTE | 2018-11-02 13:46 | MHIPN ---
DATE: 11/02/2018 SUBJECTIVE: "I have been doing okay, I am happy that I have been accepted into a rehab". OBJECTIVE: He is a 48-year-old male, , homeless, was admitted because of depression and suicidal thoughts. He has a significant drug and alcohol history. He has been using for the last 6 months methamphetamine, cannabis, and cocaine. Currently somewhat withdrawn. MENTAL STATUS EXAMINATION: Casually dressed, cooperative. Psychomotor activity is normal. Mood is depressed. Affect is constricted. Speech rate, rhythm and volume are good. Thought process linear and goal directed. Thought content: Denied any suicidal or homicidal ideas. Denied any delusions. Denied any auditory or visual hallucinations. He is alert and oriented to time, place, and person. Memory, immediate, remote and recent are good. DIAGNOSES: 1. Mood disorder, not otherwise specified. 2. Rule out bipolar disorder, not otherwise specified. 3. Polysubstance use disorder. 4. Hepatitis C. VITAL SIGNS: Temperature 97.5, pulse 60, respiratory rate 18, blood pressure 127/77. LABS: CBC, CMP within normal limits. However, his ALT was increased to 294. He was seen by the shellfish bed worker. Toxicology was positive for cannabis. PLAN: Continue his current medications that are Abilify 5 mg daily and citalopram 10 mg daily. The patient has been accepted for [facility]. Patient will be discharged tomorrow.
--- NOTE | 2018-11-02 15:33 | IPN ---
DATE: 11/02/2018 SUBJECTIVE: Patient is seen and examined in the room today. During the encounter, patient was asleep, resting comfortably in bed. Patient denies any acute complaints. Denies any fever or chills. Denies any chest pain or shortness of breath. OBJECTIVE: VITAL SIGNS: Temperature is 97.5, pulse is 60, respirations 18, blood pressure is 127/77. GENERAL: No sign of acute distress. Alert, awake, comfortable. HEENT: Normocephalic, atraumatic. Extraocular movements grossly intact. CARDIOVASCULAR: Positive S1, S2, regular rate. LUNGS: Clear to auscultation bilaterally. ABDOMEN: Soft, nontender, nondistended. Bowel sounds present. EXTREMITIES: No edema. LABORATORY DATA: Liver fibrosis stage pending. Anti CCP pending. Hepatitis C genotype pending. ASSESSMENT AND PLAN: Hepatitis C. Patient does have a history of IV amphetamine use. Patient recently diagnosed with hepatitis C. Hepatitis C was performed on October 27, 2018. Patient recommended to establish with infectious disease specialist after discharge. Currently hepatitis C genotype pending. Stated history of rheumatoid arthritis. Patient states he was diagnosed with rheumatoid arthritis by the primary care provider. Previously, however, patient has not been taking any rheumatoid arthritis medications. Recently, patient's rheumatoid factor is negative. Will follow the anti CCP level is pending. Unsure whether patient has rheumatoid arthritis. Polysubstance usage with mood disorder. Currently patient is admitted in [facility]. Refer management to the primary psychiatric team. Deep venous thrombosis (DVT) prophylaxis. Encouraged ambulation.
[2018-11-02 18:00] VITALS: BP 146/79
[2018-11-02] MEDS: traZODone 50 MG TAB PO PRN (20:18)
[2018-11-02] MEDS: MAALOX 30 ML SUSP *UDC PO PRN (20:18)
[2018-11-02] MEDS: IBUPROFEN 600 MG TAB PO PRN (20:18)
[2018-11-03 06:58] VITALS: BP 112/67
[2018-11-03] MEDS: NICOTINE 21MG/24HR 1 EA TRANSDERMAL TD SCH (09:00)
--- NOTE | 2018-11-03 09:23 | MHDS ---
DATE OF ADMISSION: 10/31/2018 DATE OF DISCHARGE: DIAGNOSES: 1. Mood disorder not otherwise specified. 2. Rule out bipolar disorder not otherwise specified. 3. Polysubstance use disorder. 4. Hepatitis C. IDENTIFYING DATA: He is a 48-year-old male, , father of five children, homeless, supported by food stamps, who was admitted because of suicidal thoughts. For details of history of present illness (HPI), personal history, past psychiatric history, substance abuse history, medical history, please refer to the initial evaluation. COURSE IN THE HOSPITAL: The patient initially was depressed and then ambivalent about suicidal thoughts, but reported that he has significant drug and alcohol problems and he is under a lot of stress. He reported that he wants to go to a drug rehabilitation. The patient was placed on Abilify 5 mg once daily and citalopram 10 mg once daily. He also was attending groups, activities and milieu therapy. He was encouraged to participate in activities. Slowly, his depression resolved. His self esteem improved. His isolation decreased. He denied any side effect from the medication. He denied any suicidal or homicidal ideas. There were no behavioral issues in the unit. It was decided in the treatment team that the patient could be discharged to a drug/alcohol rehabilitation. MENTAL STATUS EXAMINATION: Well built, cooperative, made good eye contact. Personal hygiene is good. Speech rate, rhythm and volume are good. Thought process linear, goal directed, coherent. There was no tangentiality or circumstantiality. Denied any suicidal or homicidal ideas. Denied any delusions. His memory immediate, remote and recent were good. He was oriented to time, place and person. Mood is euthymic. VITAL SIGNS: Temperature 97.6. Pulse 53. Respiratory rate 14. Blood pressure 112/67. LABS: CBC within normal limits. CMP: The AST and ALT were increased. He was followed up by the back strip machine operator who reported that it was because of hepatitis C and drug/alcohol use. On his toxicology, he was positive for cannabis. PLAN: To send him to [facility].
[2018-11-03] MEDS: CitaloPRAM (CeleXA) 10 MG TABLET PO SCH (09:26)
[2018-11-03] MEDS: IBUPROFEN 600 MG TAB PO PRN (09:27)
== END 2018-11-03 09:55 | DRG 753 ==
LOC: M ED 20:55 → M ED INP 10-31 15:10 → M PSY 10-31 15:28
PROVIDERS: ADMIT Psychiatry & Neurology Psychiatry; ATTEND Psychiatry & Neurology Psychiatry
DX: F31.9 Bipolar disorder, unspecified (principal); B18.2 Chronic viral hepatitis C; R45.851 Suicidal ideations; M79.7 Fibromyalgia; K21.9 Gastro-esophageal reflux disease without esophagitis; M06.9 Rheumatoid arthritis, unspecified; F17.200 Nicotine dependence, unspecified, uncomplicated; F12.90 Cannabis use, unspecified, uncomplicated; K74.60 Unspecified cirrhosis of liver

== ENCOUNTER 2019-04-22 19:29 | Inpatient (IN) | payer MEDICAID, SELFPAY ==
[~2019-04-22] VITALS: Ht 175.3 cm; Wt 89.0 kg
[~2019-04-22 19:29] MED LIST changes: +BENA25CA4 PO; -OMEP20CA3 PO; +OMEP20CA4 PO; +OMEP20TA PO; -QUET1TAB9 PO; +QUET200T2 PO
[2019-04-22] MEDS ORDERED: VITA500C24 PO (19:40)
[2019-04-22] MEDS ORDERED: TH DTAB2 PO (19:41)
[2019-04-22] MEDS ORDERED: MAGN400C2 PO (19:41)
[2019-04-22] MEDS ORDERED: CHOL100029 PO (19:41)
[2019-04-22] MEDS ORDERED: NS 500 ML IV ONE (20:45)
[2019-04-22 20:59] LABS: BASO % 0.4 % (0.0-1.0); EOS % 0.2 % (0.0-3.0); HEMATOCRIT 49.5 % (42.0-52.0); HEMOGLOBIN 17.1 g/dl (13.5-17.5); LYMPH # 1.4 10^3/uL (1.5-5.0); LYMPH % 28.5 % (24.0-44.0); MEAN CORPUSCULAR HEMOGLOBIN 30.5 pg (27.0-33.0); MEAN CORPUSCULAR HGB CONC 34.5 g/dl (32.0-36.5); MEAN CORPUSCULAR VOLUME 88.2 fl (80.0-96.0); MONO # 0.4 10^3/uL (0.0-0.8); MONO % 8.2 % (0.0-5.0); NEUTROPHILS # 3.1 10^3/uL (1.5-8.5); NEUTROPHILS % 61.9 % (36.0-66.0); PLATELET COUNT, AUTOMATED 208 10^3/uL (150-450); RED BLOOD COUNT 5.61 10^6/uL (4.30-6.10)
[2019-04-22 21:13] LABS: INR 1.16; PROTHROMBIN TIME 14.5 SECONDS (11.8-14.0)
[2019-04-22 21:14] LABS: PARTIAL THROMBOPLASTIN TIME 32.3 SECONDS (25.0-38.4)
[2019-04-22 21:19] LABS: ALBUMIN 2.7 GM/DL (3.2-5.2); ALT/SGPT 863 U/L (12-78); BILIRUBIN,DIRECT 7.5 MG/DL (0.0-0.2); BILIRUBIN,TOTAL 8.3 MG/DL (0.2-1.0); BLOOD UREA NITROGEN 14 MG/DL (7-18); CALCIUM LEVEL 8.6 MG/DL (8.5-10.1); CARBON DIOXIDE LEVEL 29 MEQ/L (21-32); CHLORIDE LEVEL 101 MEQ/L (98-107); CREATININE FOR GFR 0.86 MG/DL (0.70-1.30); GLOMERULAR FILTRATION RATE > 60.0 (>56); GLUCOSE, FASTING 114 MG/DL (70-100); LIPASE 282 U/L (73-393); POTASSIUM SERUM 3.7 MEQ/L (3.5-5.1); SODIUM LEVEL 138 MEQ/L (136-145); TOTAL PROTEIN 6.8 GM/DL (6.4-8.2)
[2019-04-22] MEDS ORDERED: ISOVUE-370 76% 100ML VIAL (Q9967) As Ordered ONE (21:33)
[2019-04-22] MEDS ORDERED: LACTULOSE 20 GM/30 ML SYRUP UD PO ONE (22:00)
--- NOTE | 2019-04-22 22:47 | REPVR ---
PROCEDURE INFORMATION: Exam: CT Abdomen and Pelvis With Contrast Exam date and time: 04/22/2019 9:36 PM Clinical history: 48 years old, male; Condition or disease; Liver condition; Hepatitis TECHNIQUE: Imaging protocol: Computed tomography of the abdomen and pelvis with intravenous contrast. Radiation optimization: All CT scans at this facility use at least one of these dose optimization techniques: automated exposure control; mA and/or kV adjustment per patient size (includes targeted exams where dose is matched to clinical indication); or iterative reconstruction. Contrast material: ISOVUE 370; Contrast volume: 100 ml; Contrast route: IV; COMPARISON: GALLBLADDER US 10/27/2018 6:04 PM FINDINGS: Liver: 1.6 cm hemangioma in the posterior right hepatic lobe. Liver is mildly enlarged. Liver is mildly low attenuation suggesting hepatic steatosis. Gallbladder and bile ducts: The gallbladder wall is thickened and edematous with mucosal enhancement. Mild soft tissue edema in the kim hepatis. The gallbladder is not significantly distended and no stones are seen. No biliary duct dilation. Pancreas: Normal. No ductal dilation. Spleen: Mild splenomegaly. Adrenals: Normal. No mass. Kidneys and ureters: Normal. No hydronephrosis. Stomach and bowel: Unremarkable. No obstruction. No mucosal thickening. Appendix: No evidence of appendicitis. Intraperitoneal space: Unremarkable. No free air. No significant fluid collection. Vasculature: Unremarkable. No abdominal aortic aneurysm. Lymph nodes: Unremarkable. No enlarged lymph nodes. Bladder: Unremarkable as visualized. Reproductive: Unremarkable as visualized. Bones/joints: Unremarkable. No acute fracture. Soft tissues: Unremarkable. IMPRESSION: 1. Hepatosplenomegaly. 2. Gallbladder wall thickening with mucosal enhancement. Soft tissue edema in the kim hepatis. Findings may be due to acalculus cholecystitis, hepatitis, or portal hypertension. Consider gallbladder ultrasound followup. 3. Hepatic steatosis. 4. Small hemangioma in the right lobe of the liver. Electronically signed by: John Maloney On 04/22/2019 22:46:24 PM
--- NOTE | 2019-04-23 00:47 | HPEPDOC ---
[facility] Medical History & Physical Date of Admission Apr 23, 2019 Date of Service: Apr 23, 2019 Attending Physician: SABINA BRENNER MD History and Physical TIME OF SERVICE: 1:50 AM CHIEF COMPLAINT: Pain HISTORY OF PRESENT ILLNESS: This is 48-year-old male who presents with complaints of 6 out of 10 in severity, lower back pain for 7-8 days. He came to hospital today because he had difficulties walking; he has fallen, reports having fevers, denies having chills, and reports that his weight is stable. Per discussion with the ED provider the patient was so complaining of abdominal pain, weakness and fatigue. His initial workup was remarkable for transaminitis and elevated ammonia. CT of the abdomen showed hepatosplenomegaly, gallbladder wall thickening, hepatic steatosis and a hemangioma on the right lobe of the liver. He received lactulose. REVIEW OF SYSTEMS: 12 point review of systems negative except as listed in HPI PAST MEDICAL/ SURGICAL HISTORY: Hepatitis C Previous inpatient psychiatric admission for management of bipolar disorder & mood disorder, GERD SOCIAL HISTORY: Smokes. Denies alcohol use. Last used meth 1 week ago Divorcee Father of 5 Homeless FAMILY HISTORY: Diabetes Cancer ALLERGIES: Please see below. HOME MEDICATIONS: Please see below. PHYSICAL EXAMINATION: VITAL SIGNS: Please see below. GENERAL APPEARANCE: Disheveled, well-nourished, well-developed HEENT: No cephalic, atraumatic, marked scleral icterus, mucous membranes dry CARDIOVASCULAR: Regular rate and rhythm. No murmurs, rubs or gallops LUNGS: Good auscultation bilaterally on room air ABDOMEN: Unable to palpate liver or spleen abdomen is distended and tympanic on percussion and nontender on palpation MUSCULOSKELETAL: Range of motion is intact in all 4 extremities INTEGUMENT: Jaundiced NEUROLOGICAL: Cranial nerves 2 to 12 are grossly intact. Speech is not dysarthric PSYCHIATRIC: Alert and oriented, able to understand and follow commands LABORATORY DATA: See below. IMAGING: CT of abdomen and pelvis "IMPRESSION: 1. Hepatosplenomegaly. 2. Gallbladder wall thickening with mucosal enhancement. Soft tissue edema in the kim hepatis. Findings may be due to acalculous cholecystitis, hepatitis, or portal hypertension. Consider gallbladder ultrasound followup. 3. Hepatic steatosis. 4. Small hemangioma in the right lobe of the liver. " MICROBIOLOGY: Please see below. ASSESSMENT: is a 48-year-old male with a past medical history of hepatitis C, bipolar disorder, and GERD who will be admitted for evaluation of acute on chronic liver failure. PLAN: 1.Acute on Chronic Liver failure / Hepatitis C His hepatitis C has not been treated. The cause of acute hepatitis, unclear what he continues to use drugs therefore, he may been exposed to new drugs that caused worsening of his cirrhosis Compared to previous admissions his bilirubin & LFTs His ammonia is elevated. CT findings as above MELD-Na Score to determine severity of ESLD = 17 points = 3-4% estimated 90 day mortality He continues to use drugs therefore he is not a candidate for transplant Plan: admit to PCU for frequent neuro checks / trend LFTs Coags & Bilirubin / f/u liver US / GI consult / c/w lactulose / f/u drug screen 2.Bipolar Disorder He reports is not taking any meds & denies SI or HI. Plan: Monitor behavior 3.GERD. Plan: PPI + tums 4.Tobacco abuse. Plan: Nicotine patch/tobacco cessation education 5.Homelessness Plan: case management consult for placement 6.Joint pain possibly 2/2 OA Plan: Capsaicin cream DVT Px w heparin Disposition pending clinical course Vital Signs Vital Signs Date Time Temp Pulse Resp B/P (MAP) Pulse Ox O2 Delivery O2 Flow Rate FiO2 04/23/19 00:31 18 123/83 (96) 04/23/19 00:25 71 98 Room Air 04/22/19 19:37 98.8 Laboratory Data Labs 24H Laboratory Tests 2 04/22/19 20:36: Immature Granulocyte % (Auto) 0.8, White Blood Count 5.0, Red Blood Count 5.61, Hemoglobin 17.1, Hematocrit 49.5, Mean Corpuscular Volume 88.2, Mean Corpuscular Hemoglobin 30.5, Mean Corpuscular Hemoglobin Concent 34.5, Red Cell Distribution Width 15.9H, Platelet Count 208, Neutrophils (%) (Auto) 61.9, Lymphocytes (%) (Auto) 28.5, Monocytes (%) (Auto) 8.2H, Eosinophils (%) (Auto) 0.2, Basophils (%) (Auto) 0.4, Neutrophils # (Auto) 3.1, Lymphocytes # (Auto) 1.4L, Monocytes # (Auto) 0.4, Eosinophils # (Auto) 0.0, Basophils # (Auto) 0.0, Nucleated Red B lood Cells % (auto) 0.0, Prothrombin Time 14.5H, Prothromb Time International Ratio 1.16, Activated Partial Thromboplast Time 32.3, Anion Gap 8, Glomerular Filtration Rate > 60.0, Calcium Level 8.6, Aspartate Amino Transf (AST/SGOT) 263H, Alanine Aminotransferase (ALT/SGPT) 863H, Alkaline Phosphatase 200H, Total Bilirubin 8.3H, Direct Bilirubin 7.5H, Total Protein 6.8, Albumin 2.7L, Albumin/Globulin Ratio 0.66L, Lipase 282 04/22/19 20:39: Ammonia 65H CBC/BMP Laboratory Tests 04/22/19 20:36 Red Blood Count 5.61, Mean Corpuscular Volume 88.2, Mean Corpuscular Hemoglobin 30.5, Mean Corpuscular Hemoglobin Concent 34.5, Red Cell Distribution Width 15.9 H, Neutrophils (%) (Auto) 61.9, Lymphocytes (%) (Auto) 28.5, Monocytes (%) (Auto) 8.2 H, Eosinophils (%) (Auto) 0.2, Basophils (%) (Auto) 0.4, Neutrophils # (Auto) 3.1, Lymphocytes # (Auto) 1.4 L, Monocytes # (Auto) 0.4, Eosinophils # (Auto) 0.0, Basophils # (Auto) 0.0 Home Medications Scheduled Ascorbic Acid (Vitamin C) 500 Mg Capsule, 500 MG PO DAILY Magnesium Oxide (Magnesium) 400 Mg Capsule, 400 MG PO DAILY Multivitamin (Daily Multiple Vitamin) 1 Each Tablet, 1 TAB PO DAILY Vitamin D (Vitamin D3) 1,000 Unit Tablet, 1,000 UNITS PO DAILY Allergies Coded Allergies: No Known Allergies (Verified , 04/22/19) A-FIB/CHADSVASC A-FIB History Current/History of A-Fib/PAF?: No Current PO Anticoag Therapy: No SABINA BRENNER MD Apr 23, 2019 00:47
[2019-04-23 02:30] VITALS: BP 127/85
[2019-04-23] MEDS ORDERED: CALCIUM CARBONATE 500 MG CHEW U/D PO PRN (03:30)
[2019-04-23] MEDS: NICOTINE 21MG/24HR 1 EA TRANSDERMAL TD SCH (04:23)
[2019-04-23] MEDS: CAPSAICIN 0.025% CR 60 GM TOP SCH ×3 (04:23→21:57)
[2019-04-23 05:44] LABS: HEMATOCRIT 44.9 % (42.0-52.0); HEMOGLOBIN 15.2 g/dl (13.5-17.5); MEAN CORPUSCULAR HEMOGLOBIN 30.2 pg (27.0-33.0); MEAN CORPUSCULAR HGB CONC 33.9 g/dl (32.0-36.5); MEAN CORPUSCULAR VOLUME 89.1 fl (80.0-96.0); PLATELET COUNT, AUTOMATED 184 10^3/uL (150-450); RED BLOOD COUNT 5.04 10^6/uL (4.30-6.10); WHITE BLOOD COUNT 4.3 10^3/uL (4.0-10.0)
[2019-04-23] MEDS: HEPARIN SOD (PORCINE) 5000 UNITS/ML VIAL SC SCH ×3 (05:46→21:57)
[2019-04-23 06:01] LABS: INR 1.14; PROTHROMBIN TIME 14.3 SECONDS (11.8-14.0)
[2019-04-23 06:04] LABS: ALBUMIN 2.4 GM/DL (3.2-5.2); ALT/SGPT 689 U/L (12-78); BILIRUBIN,TOTAL 6.5 MG/DL (0.2-1.0); BLOOD UREA NITROGEN 13 MG/DL (7-18); CALCIUM LEVEL 8.2 MG/DL (8.5-10.1); CARBON DIOXIDE LEVEL 26 MEQ/L (21-32); CHLORIDE LEVEL 103 MEQ/L (98-107); ETHYL ALCOHOL (ETHANOL) < 0.003 % (0.000-0.010); GLOMERULAR FILTRATION RATE > 60.0 (>56); GLUCOSE, FASTING 139 MG/DL (70-100); POTASSIUM SERUM 3.8 MEQ/L (3.5-5.1); SODIUM LEVEL 136 MEQ/L (136-145); TOTAL PROTEIN 6.3 GM/DL (6.4-8.2)
[2019-04-23] MEDS: PANTOPRAZOLE 40MG INJ (PROTONIX) (C9113) IV SCH (08:41)
[2019-04-23] MEDS: POLYVINYL ALCOHOL OPHTH SOLN 15 ML(LIQUITEARS) OU SCH ×3 (10:36→21:57)
[2019-04-23] MEDS: DICLOFENAC EPOLAMINE 1.3 % PATCH TOP SCH ×2 (10:36→22:02)
[2019-04-23] MEDS: VITAMIN D 1,000 INTERNATIONAL UNITS TABLET PO SCH (12:44)
[2019-04-23] MEDS: ASCORBIC ACID 500 MG TAB PO SCH (12:44)
[2019-04-23] MEDS: LACTULOSE 20 GM/30 ML SYRUP UD PO SCH ×3 (12:46→21:56)
[2019-04-23 14:57] LABS: IRON (FE) 82 UG/DL (65-175); PERCENT SATURATION 32.4 % (19.7-50.0); TOTAL IRON BINDING CAPACITY 253 UG/DL (250-450)
[2019-04-23 16:00] VITALS: BP 136/80
[2019-04-23 20:00] VITALS: BP 119/75
[2019-04-24 03:54] VITALS: BP 112/72
[2019-04-24 06:02] LABS: HEMOGLOBIN 14.2 g/dl (13.5-17.5); MEAN CORPUSCULAR HEMOGLOBIN 29.6 pg (27.0-33.0); MEAN CORPUSCULAR HGB CONC 33.8 g/dl (32.0-36.5); MEAN CORPUSCULAR VOLUME 87.7 fl (80.0-96.0); PLATELET COUNT, AUTOMATED 216 10^3/uL (150-450); RED BLOOD COUNT 4.79 10^6/uL (4.30-6.10); WHITE BLOOD COUNT 4.2 10^3/uL (4.0-10.0)
[2019-04-24 06:15] LABS: INR 1.01
[2019-04-24 06:16] LABS: PARTIAL THROMBOPLASTIN TIME 39.8 SECONDS (25.0-38.4)
[2019-04-24 06:27] LABS: ALBUMIN 2.2 GM/DL (3.2-5.2); ALT/SGPT 489 U/L (12-78); BILIRUBIN,DIRECT 3.3 MG/DL (0.0-0.2); BILIRUBIN,TOTAL 4.1 MG/DL (0.2-1.0); BLOOD UREA NITROGEN 9 MG/DL (7-18); CALCIUM LEVEL 8.4 MG/DL (8.5-10.1); CARBON DIOXIDE LEVEL 29 MEQ/L (21-32); CHLORIDE LEVEL 105 MEQ/L (98-107); CREATININE FOR GFR 0.91 MG/DL (0.70-1.30); GLOMERULAR FILTRATION RATE > 60.0 (>56); GLUCOSE, FASTING 100 MG/DL (70-100); SODIUM LEVEL 141 MEQ/L (136-145); TOTAL PROTEIN 6.7 GM/DL (6.4-8.2)
[2019-04-24] MEDS: HEPARIN SOD (PORCINE) 5000 UNITS/ML VIAL SC SCH ×3 (06:28→20:21)
[2019-04-24 08:00] VITALS: BP 117/76
--- NOTE | 2019-04-24 08:21 | REP ---
HEPATIC ULTRASOUND: 04/23/2019. Comparison: CT abdomen and pelvis 04/22/2019, gallbladder ultrasound 10/27/2018. Clinical history: Transaminitis. Findings: Sonographic evaluation of the right upper quadrant shows the liver with a hyperechoic focus in the right posterior lobe up to 2.3 cm. This same area on CT shows two lesions with nodular peripheral enhancement and the homogeneous hyperechogenicity is consistent with hemangiomas by ultrasound. The overall liver echotexture is also increased suggesting fatty infiltration. Liver measures 18.3 cm in vertical diameter in the midclavicular line, similar to the CT, mildly enlarged. No cyst, biliary dilatation or adjacent ascites. Gallbladder shows thickening of the wall up to 4.2 mm and echogenic foci with comet-tail artifact consistent with adenomyomatosis and edema. I do not see pericholecystic fluid. There was no sonographic Bauer sign defined by this examination. Common duct is 5.4 mm without a common duct stone seen. Pancreas was grossly unremarkable for the segments visible on this examination. The right kidney is 12.4 x 5.8 x 4.7 cm and is without stone or hydronephrosis. I see no generalized free fluid. Impression: 1. There are two hyperechoic lesions in the posterior aspect right hepatic lobe consistent with hemangiomas, the larger about 2.3 cm and corresponding to the findings on CT last evening. The overall echogenicity is slightly hyperechoic and suggests some fatty infiltration. 2. Gallbladder wall shows echogenic foci in thickened wall and some comet-tail artifact or shadowing that may reflect adenomyomatosis. I do not see stone, sludge or pericholecystic fluid. 3. Common bile duct 5.4 mm and without a stone. The visualized pancreas and right kidney are without acute finding. Electronically Signed by Andrew Marshall MD 04/24/2019 10:06 A
[2019-04-24] MEDS: ASCORBIC ACID 500 MG TAB PO SCH (08:53)
[2019-04-24] MEDS: LACTULOSE 20 GM/30 ML SYRUP UD PO SCH (08:53)
[2019-04-24] MEDS: PANTOPRAZOLE 40MG INJ (PROTONIX) (C9113) IV SCH (08:53)
[2019-04-24] MEDS: VITAMIN D 1,000 INTERNATIONAL UNITS TABLET PO SCH (08:53)
[2019-04-24] MEDS: POLYVINYL ALCOHOL OPHTH SOLN 15 ML(LIQUITEARS) OU SCH ×3 (08:54→20:15)
[2019-04-24] MEDS: CAPSAICIN 0.025% CR 60 GM TOP SCH ×3 (08:54→20:16)
[2019-04-24] MEDS: NICOTINE 21MG/24HR 1 EA TRANSDERMAL TD SCH (08:54)
[2019-04-24 10:33] LABS: HEPATITIS B SURFACE ANTIGEN NEGATIVE (NEGATIVE)
[2019-04-24 11:00] LABS: HEPATITIS B CORE ANTIBODY IGM NEGATIVE (NEGATIVE)
[2019-04-24] MEDS: DICLOFENAC EPOLAMINE 1.3 % PATCH TOP SCH ×2 (11:00→23:00)
[2019-04-24 11:18] LABS: HEPATITIS A ANTIBODY IGM POSITIVE (NEGATIVE)
[2019-04-24 12:00] VITALS: BP 123/86
[2019-04-24 14:15] LABS: HEPATITIS C VIRUS ABY INDEX > 11.0 INDEX (<0.8)
[2019-04-24 16:00] VITALS: BP 124/82
[2019-04-24 19:55] VITALS: BP 124/80
--- NOTE | 2019-04-24 21:34 | IPNPDOC ---
Subjective Date Seen The patient was seen on 04/24/19. Subjective Chief Complaint/HPI Says had a bad night due to severe abdominal pain. denied nausea or vomiting, had 3 loose stools yesterday with lactulose. No fever or chills, no chest pain or SOB. Objective Physical Examination General Exam: Positive: Alert, Cooperative, No Acute Distress Eye Exam: Positive: PERRLA, Conjunctiva & lids normal, EOMI, Sclera icteric ENT Exam: Positive: Atraumatic, Mucous membr. moist/pink, Pharynx Normal Neck Exam: Positive: Supple; Negative: JVD, thyromegaly Chest Exam: Positive: Clear to auscultation, Normal air movement Heart Exam: Positive: Rate Normal, Regular Rhythm, Normal S1, Normal S2; Negative: Murmurs, Rubs Abdomen Exam: Positive: Normal bowel sounds, Soft, Tenderness (all over but maximum in the epigastrium and right upper quadrant. ); Negative: Hepatospenomegaly Extremity Exam: Positive: Normal pulses; Negative: Clubbing, Cyanosis, Edema Skin Exam: Positive: Nl turgor and temperature; Negative: Rash, Breakdown Neuro Exam: Positive: Normal Gait, Normal Speech, Cranial Nerves 3-12 NL, Reflexes 2+ Psych Exam: Positive: Mental status NL, Mood NL, Oriented x 3 Assessment /Plan Assessment This is 48-year-old male with PMH of hepatitis C, polysubstance abuse including methamphetamine, heroin, chronic low back pain, bipolar disorder, mood disorder, GGERD who presented with complaints of 6 out of 10 in severity, lower back pain for 7-8 days then difficulty in walking and 1 day history of nausea, abdominal p ain and poor appetite, weakness and fatigue and on the morning of the admission he noticed that he was yellow socame to the ED. His lat methamphetamine use was 6 days prior to admission. His initial workup was remarkable for hyperbilirubinemia, transaminitis and elevated ammonia. CT of the abdomen showed hepatosplenomegaly, gallbladder wall thickening, hepatic steatosis and a hemangioma on the right lobe of the liver. IMAGING: CT of abdomen and pelvis "IMPRESSION: 1. Hepatosplenomegaly. 2. Gallbladder wall thickening with mucosal enhancement. Soft tissue edema in the kim hepatis. Findings may be due to acalculous cholecystitis, hepatitis, or portal hypertension. Consider gallbladder ultrasound followup. 3. Hepatic steatosis. 4. Small hemangioma in the right lobe of the liver. " Acute on Chronic Liver disease / Hepatitis C His hepatitis C has not been treated. The cause of acute hepatitis is acute hepatitis A. MELD-Na Score to determine severity of ESLD = 17 points = 3-4% estimated 90 day mortality He continues to use drugs continue lactulose. Bipolar Disorder He reports is not taking any meds & denies SI or HI. not on any meds GERD. PPI + tums Tobacco abuse. Nicotine patch/tobacco cessation education Homelessness case management consult for placement Back pain Joint pain possibly 2/2 OA will get XR of thoracolumber spine. Capsaicin cream diclofenac patch at the back and K pad. Plan/VTE VTE Prophylaxis Ordered?: Yes VS, I&O, 24H, Fishbone Vital Signs/I&O Vital Signs Date Time Temp Pulse Resp B/P (MAP) Pulse Ox O2 Delivery O2 Flow Rate FiO2 04/24/19 03:54 97.4 61 20 112/72 (85) 97 04/23/19 01:16 Room Air I&O- Last 24 Hours up to 6 AM 04/24/19 06:00 Intake Total 880 ml Output Total 140 ml Balance 740 ml Laboratory Data 24H LABS Laboratory Tests 2 04/23/19 12:44: Iron Level 82, Total Iron Binding Capacity 253, Transferrin % Saturation 32.4 04/24/19 05:30: Nucleated Red Blood Cells % (auto) 0.0, Prothrombin Time 13.0, Prothromb Time International Ratio 1.01, Activated Partial Thromboplast Time 39.8H, Anion Gap 7L, Glomerular Filtration Rate > 60.0, Blood Urea Nitrogen 9, Creatinine 0.91, Sodium Level 141, Potassium Level 4.0, Chloride Level 105, Carbon Dioxide Level 29, Calcium Level 8.4L, Aspartate Amino Transf (AST/SGOT) 139H, Alanine Aminotransferase (ALT/SGPT) 489H, Alkaline Phosphatase 234H, Total Bilirubin 4.1 H, Direct Bilirubin 3.3H, Total Protein 6.7, Albumin 2.2L, Albumin/Globulin Ratio 0.49L CBC/BMP Laboratory Tests 04/24/19 05:30 Red Blood Count 4.79, Mean Corpuscular Volume 87.7, Mean Corpuscular Hemoglobin 29.6, Mean Corpuscular Hemoglobin Concent 33.8, Red Cell Distribution Width 16.6 H, Calcium Level 8.4 L, Aspartate Amino Transf (AST/SGOT) 139 H, Alanine Aminotransferase (ALT/SGPT) 489 H, Alkaline Phosphatase 234 H, Total Bilirubin 4.1 H, Direct Bilirubin 3.3 H, Total Protein 6.7, Albumin 2.2 L TORRIE LOUISE MD Apr 24, 2019 08:17
[2019-04-24 23:59] VITALS: BP 123/80
[2019-04-25 04:00] VITALS: BP 104/57
[2019-04-25] MEDS: HEPARIN SOD (PORCINE) 5000 UNITS/ML VIAL SC SCH ×3 (06:02→21:04)
[2019-04-25] MEDS ORDERED: NICO21PAT TD (07:37)
[2019-04-25] MEDS ORDERED: DICL1PAT TOP (07:37)
[2019-04-25] MEDS ORDERED: CAPS25CR TOP (07:37)
[2019-04-25 08:00] VITALS: BP 114/77
--- NOTE | 2019-04-25 08:27 | REP ---
Thoracic spine radiographs: Three views. History: Chronic pain. Findings: Thoracic vertebral body heights are preserved. Alignment is normal. There is discogenic spurring anteriorly and along the right lateral contour of the thoracic spine at several levels. This is mild. Swimmer's lateral view shows degenerative disc disease in the lower cervical spine. Pedicles and posterior elements are intact. No paravertebral soft-tissue mass is appreciated. Impression: Mild degenerative disc changes. Otherwise negative thoracic spine radiographs. Electronically Signed by Ahsan Moreno MD 04/25/2019 08:18 A
[2019-04-25] MEDS: CAPSAICIN 0.025% CR 60 GM TOP SCH ×3 (09:00→21:00)
[2019-04-25] MEDS: PANTOPRAZOLE 40MG INJ (PROTONIX) (C9113) IV SCH (09:15)
[2019-04-25] MEDS: ASCORBIC ACID 500 MG TAB PO SCH (09:16)
[2019-04-25] MEDS: LACTULOSE 20 GM/30 ML SYRUP UD PO SCH (09:16)
[2019-04-25] MEDS: POLYVINYL ALCOHOL OPHTH SOLN 15 ML(LIQUITEARS) OU SCH ×3 (09:16→21:00)
[2019-04-25] MEDS: VITAMIN D 1,000 INTERNATIONAL UNITS TABLET PO SCH (09:16)
[2019-04-25] MEDS: NICOTINE 21MG/24HR 1 EA TRANSDERMAL TD SCH (09:17)
[2019-04-25] MEDS: DICLOFENAC EPOLAMINE 1.3 % PATCH TOP SCH ×2 (10:43→22:58)
[2019-04-25 14:15] LABS: HEMATOCRIT 45.1 % (42.0-52.0); HEMOGLOBIN 15.2 g/dl (13.5-17.5); MEAN CORPUSCULAR HEMOGLOBIN 30.3 pg (27.0-33.0); MEAN CORPUSCULAR HGB CONC 33.7 g/dl (32.0-36.5); MEAN CORPUSCULAR VOLUME 89.8 fl (80.0-96.0); PLATELET COUNT, AUTOMATED 240 10^3/uL (150-450); RED BLOOD COUNT 5.02 10^6/uL (4.30-6.10)
--- NOTE | 2019-04-25 14:44 | IPN ---
DATE OF SERVICE: 04/25/2019 SUBJECTIVE: The patient denies nausea, vomiting, abdominal pain; is tolerating his diet well. No fever or chills. No confusion. PHYSICAL EXAM: Vital signs: Temperature 96.4, pulse 64, respiratory rate 18, blood pressure 114/77, 98% on room air. Generally awake, alert, oriented times three. Answering questions appropriately. The patient has some mild icterus. Mild jaundice. Pupils are round, reactive. Extraocular muscles intact are intact. Moist mucous membranes. No supraclavicular lymphadenopathy or thyromegaly. Lungs are clear to auscultation. No wheezing, rales or rhonchi. Heart: S1, S2. Sinus rhythm. No murmurs, rubs or gallops. Abdomen is soft, nontender, nondistended. Positive bowel sounds. Obese abdomen. Extremities: No cyanosis or clubbing. Negative for pitting edema. Laboratory data, imaging studies have been reviewed. 48-year-old male with a history of hepatitis C, heroin, chronic back pain, polysubstance abuse with methamphetamine, bipolar disorder, reflux, nd mood disorder was found to have acute hepatitis A. CT of the abdomen showed hepatomegaly, hepatic steatosis. Ultrasound shows fatty liver and possible adenomyomatosis. No gallbladder stones. CURRENT ISSUES: 1. Acute hepatitis A. Supportive care. Currently tolerating his diet with decreasing ACL, ALT levels and bilirubin. 2. Chronic hepatitis C. The patient will need infectious disease referral as outpatient for followup and possible treatment. 3. Chronic back pain. X-ray is negative for acute fracture or dislocation. Due to history of intravenous (IV) drug use and liver disease, avoid Tylenol products, currently on capsaicin and Flector patch. 4. Homelessness. Patient and family services (PFS) has been consulted for housing. [employer] ([employer]) has been contacted. 5. Bipolar disorder. Currently denies suicidal or homicidal ideation. Not on any medications. 6. Gastroesophageal reflux disease. On as needed Tums and proton pump inhibitor (PPI). PLAN: The patient is medically stable to transfer to medical-surgical floor. [facility]
[2019-04-25 14:52] LABS: ALBUMIN 2.5 GM/DL (3.2-5.2); ALT/SGPT 395 U/L (12-78); BILIRUBIN,TOTAL 3.5 MG/DL (0.2-1.0); BLOOD UREA NITROGEN 14 MG/DL (7-18); CALCIUM LEVEL 8.9 MG/DL (8.5-10.1); CARBON DIOXIDE LEVEL 29 MEQ/L (21-32); CHLORIDE LEVEL 103 MEQ/L (98-107); GLOMERULAR FILTRATION RATE > 60.0 (>56); GLUCOSE, FASTING 116 MG/DL (70-100); POTASSIUM SERUM 4.3 MEQ/L (3.5-5.1); SODIUM LEVEL 138 MEQ/L (136-145); TOTAL PROTEIN 6.9 GM/DL (6.4-8.2)
[2019-04-25 16:00] VITALS: BP 124/79
[2019-04-25] MEDS ORDERED: SLF 3 ML SYR IV PRN (17:15)
[2019-04-25 20:00] VITALS: BP 124/78
[2019-04-25] MEDS: SLF 3 ML SYR IV SCH (22:00)
[2019-04-26 04:00] VITALS: BP 115/73
[2019-04-26] MEDS: SLF 3 ML SYR IV SCH ×3 (05:38→21:29)
[2019-04-26] MEDS: HEPARIN SOD (PORCINE) 5000 UNITS/ML VIAL SC SCH ×3 (05:38→21:29)
[2019-04-26 07:43] VITALS: BP 112/79
[2019-04-26] MEDS ORDERED: KCL 10MEQ IN D5/0.45NS 1000ML 1,000 ML IV SCH (09:00)
[2019-04-26] MEDS: VITAMIN D 1,000 INTERNATIONAL UNITS TABLET PO SCH (09:29)
[2019-04-26] MEDS: LACTULOSE 20 GM/30 ML SYRUP UD PO SCH (09:29)
[2019-04-26] MEDS: PANTOPRAZOLE 20 MG TAB PO SCH (09:29)
[2019-04-26] MEDS: NICOTINE 21MG/24HR 1 EA TRANSDERMAL TD SCH (09:29)
[2019-04-26] MEDS: ASCORBIC ACID 500 MG TAB PO SCH (09:30)
[2019-04-26] MEDS: CAPSAICIN 0.025% CR 60 GM TOP SCH ×3 (09:30→21:29)
[2019-04-26] MEDS: POLYVINYL ALCOHOL OPHTH SOLN 15 ML(LIQUITEARS) OU SCH ×3 (09:31→21:30)
[2019-04-26 09:41] LABS: HEMATOCRIT 44.4 % (42.0-52.0); HEMOGLOBIN 14.9 g/dl (13.5-17.5); MEAN CORPUSCULAR HEMOGLOBIN 30.6 pg (27.0-33.0); MEAN CORPUSCULAR HGB CONC 33.6 g/dl (32.0-36.5); MEAN CORPUSCULAR VOLUME 91.2 fl (80.0-96.0); PLATELET COUNT, AUTOMATED 221 10^3/uL (150-450); RED BLOOD COUNT 4.87 10^6/uL (4.30-6.10); WHITE BLOOD COUNT 5.2 10^3/uL (4.0-10.0)
[2019-04-26] MEDS: GASTROGRAFIN SOLUTION 30ML PO SCH ×2 (09:45→10:24)
[2019-04-26 10:01] LABS: ERYTHROCYTE SEDIMENTATION RATE 8 mm/hr (0-20)
[2019-04-26 10:10] LABS: ALBUMIN 2.3 GM/DL (3.2-5.2); ALT/SGPT 320 U/L (12-78); AMYLASE 117 U/L (25-115); BLOOD UREA NITROGEN 15 MG/DL (7-18); C REACTIVE PROTEIN QUANTITATIV 2.17 MG/DL (0.00-0.30); CALCIUM LEVEL 8.5 MG/DL (8.5-10.1); CARBON DIOXIDE LEVEL 27 MEQ/L (21-32); CHLORIDE LEVEL 104 MEQ/L (98-107); CREATININE FOR GFR 0.86 MG/DL (0.70-1.30); GLOMERULAR FILTRATION RATE > 60.0 (>56); GLUCOSE, FASTING 114 MG/DL (70-100); LIPASE 431 U/L (73-393); POTASSIUM SERUM 4.3 MEQ/L (3.5-5.1); SODIUM LEVEL 139 MEQ/L (136-145); TOTAL PROTEIN 6.7 GM/DL (6.4-8.2)
[2019-04-26] MEDS: DICLOFENAC EPOLAMINE 1.3 % PATCH TOP SCH ×2 (11:00→22:59)
[2019-04-26] MEDS ORDERED: ISOVUE-370 76% 100ML VIAL (Q9967) As Ordered ONE (11:00)
--- NOTE | 2019-04-26 15:11 | REP ---
CT ABDOMEN AND PELVIS WITH ORAL AND IV CONTRAST: TECHNIQUE: Axial contrast enhanced images from the lung bases to the pubic symphysis using 100 mL Isovue 370 intravenous contrast material with multiplanar reformations. Visualized lung bases are clear. There again appears to be diffuse fatty infiltration of the liver. Two hemangiomas are seen in the right lobe of the liver as on prior study of 04/22/2019. Gallbladder is collapsed and there is diffuse gallbladder wall thickening unchanged since the prior study. There is no definite biliary dilatation. A tiny calcified granuloma is seen in the superior aspect of the spleen. The length of the spleen is 15.5 cm, mildly enlarged. There is also mild hepatomegaly with the length of the liver approximately 18.5 cm in the midclavicular line. No adrenal nodule is seen. The pancreas demonstrates no mass and no evidence of pancreatic ductal dilatation. The kidneys appear unremarkable. There is no hydronephrosis. There is no abdominal aortic aneurysm. There is no adenopathy. There is no free air or free fluid. No bowel wall thickening is seen. No pelvic mass is seen. The urinary bladder is mildly distended and grossly unremarkable. The appendix is normal. IMPRESSION: No acute changes compared to prior study of 04/22/2019. Gallbladder is again noted to be collapsed and there is diffuse gallbladder wall thickening. No biliary dilatation. No significant free fluid. Two hemangiomas again seen in the liver. There is mild hepatosplenomegaly. Electronically Signed by Shaheed Hatfield MD 04/27/2019 05:34 P
[2019-04-26 15:56] VITALS: BP 130/85
[2019-04-27] VITALS: BP 130/81
--- NOTE | 2019-04-27 05:36 | IPN ---
DATE OF SERVICE: 04/26/2019 SUBJECTIVE: Patient complained of left lower quadrant abdominal pain described as achy and sharp at times. No vomiting. No fever or chills. Patient had persistent nausea but is still tolerating his diet. CT abdomen and pelvis showed diffuse gallbladder wall thickening. No biliary diltation. No free fluid. Two hemangiomas are seen in the liver. No bowel wall thickening is seen. No pelvic mass. Urinary bladder is slightly distended, grossly unremarkable. Kidneys have no hydronephrosis. Mild hepatosplenomegaly. Liver ultrasound shows hemangiomas in the right hepatic lobe, fatty infiltration, thickened wall of the gallbladder, and comet-tail artifact or shadowing. May reflect adenomyomatosis. OBJECTIVE/PHYSICAL EXAMINATION: VITAL SIGNS: Temperature 99.1, pulse 65, respiratory rate 18, blood pressure 130/85, 99% on room air. GENERAL: Patient is mildly icteric. No jaundice. No jugular venous distention (JVD). No thyromegaly. LUNGS: Clear to auscultation. No wheezing, rales, or rhonchi. HEART: S1, S2, sinus rhythm. ABDOMEN: Soft. Tender in the left lower quadrant without rebound, guarding. Slight hepatosplenomegaly is noted. LABORATORY DATA: Has been reviewed. Patient has decreasing bilirubin, AST, ALT. ASSESSMENT AND PLAN: This is a 48-year-old male with history of hepatitis C, heroin use, chronic back pain, polysubstance abuse with methamphetamine, bipolar disorder, reflux disease, mood disorder, was found to have acute hepatitis A. CT abdomen showed hepatosplenomegaly, hepatitic steatosis. Ultrasound showed fatty liver, possible adenomyomatosis. No gallbladder stones. CURRENT ISSUES: 1. Acute hepatitis A, currently on supportive care. Due to complaints of abdominal pain, patient has been kept nothing by mouth with IV fluids. He currently does not have any nausea or vomiting. We will resume a full liquid diet. 2. Chronic hepatitis C. Patient will need hepatitis C RNA, which is still pending. Defer to genotype testing and treatment to infectious disease as outpatient. 3. Chronic liver disease secondary to chronic hepatitis C and acute hepatitis A. Patient is mildly jaundiced with elevated aspartate aminotransferase (AST), alanine aminotransferase (ALT), which is improving. Continue with full supportive care, IV fluids due to lactic acid elevation, and Xifaxan. 4. Chronic back pain. Avoid acetaminophen-type products. Currently on a Flector patch with no significant improvement. 5. Fatty liver. Patient will need followup with gastroenterology as outpatient. 6. Bipolar disorder. Currently not taking any medications. Patient has been compliant with medical treatment and has not been belligerent. 7. Gastroesophageal reflux. On proton pump inhibitor (PPI) and Tums. 8. Tobacco abuse. Tobacco cessation counseling has been provided. Nicotine patch currently. 9. Homelessness. Patient and family services (PFS) has been consulted for department of social welfare administrator (DSS) referral for housing. [place]
[2019-04-27 05:43] LABS: BASO % 0.7 % (0.0-1.0); EOS # 0.1 10^3/uL (0.0-0.5); EOS % 1.3 % (0.0-3.0); HEMOGLOBIN 15.1 g/dl (13.5-17.5); LYMPH # 1.8 10^3/uL (1.5-5.0); LYMPH % 33.7 % (24.0-44.0); MEAN CORPUSCULAR HGB CONC 32.8 g/dl (32.0-36.5); MEAN CORPUSCULAR VOLUME 91.5 fl (80.0-96.0); MONO # 0.5 10^3/uL (0.0-0.8); MONO % 8.6 % (0.0-5.0); NEUTROPHILS # 2.9 10^3/uL (1.5-8.5); NEUTROPHILS % 53.1 % (36.0-66.0); PLATELET COUNT, AUTOMATED 263 10^3/uL (150-450); RED BLOOD COUNT 5.03 10^6/uL (4.30-6.10); WHITE BLOOD COUNT 5.4 10^3/uL (4.0-10.0)
[2019-04-27] MEDS: HEPARIN SOD (PORCINE) 5000 UNITS/ML VIAL SC SCH ×3 (06:07→21:15)
[2019-04-27] MEDS: SLF 3 ML SYR IV SCH ×3 (06:07→21:16)
[2019-04-27 06:16] LABS: ALBUMIN 2.5 GM/DL (3.2-5.2); ALT/SGPT 293 U/L (12-78); AMYLASE 107 U/L (25-115); BILIRUBIN,TOTAL 2.8 MG/DL (0.2-1.0); BLOOD UREA NITROGEN 10 MG/DL (7-18); CALCIUM LEVEL 8.7 MG/DL (8.5-10.1); CARBON DIOXIDE LEVEL 31 MEQ/L (21-32); CHLORIDE LEVEL 105 MEQ/L (98-107); CREATININE FOR GFR 0.79 MG/DL (0.70-1.30); GLOMERULAR FILTRATION RATE > 60.0 (>56); GLUCOSE, FASTING 94 MG/DL (70-100); LIPASE 232 U/L (73-393); POTASSIUM SERUM 4.7 MEQ/L (3.5-5.1); SODIUM LEVEL 140 MEQ/L (136-145); TOTAL PROTEIN 7.3 GM/DL (6.4-8.2)
[2019-04-27 07:42] VITALS: BP 116/72
[2019-04-27] MEDS: PANTOPRAZOLE 20 MG TAB PO SCH (08:05)
[2019-04-27] MEDS: ASCORBIC ACID 500 MG TAB PO SCH (08:05)
[2019-04-27] MEDS: VITAMIN D 1,000 INTERNATIONAL UNITS TABLET PO SCH (08:06)
[2019-04-27] MEDS: POLYVINYL ALCOHOL OPHTH SOLN 15 ML(LIQUITEARS) OU SCH ×3 (08:06→21:15)
[2019-04-27] MEDS: CAPSAICIN 0.025% CR 60 GM TOP SCH ×3 (08:06→21:16)
[2019-04-27] MEDS: LACTULOSE 20 GM/30 ML SYRUP UD PO SCH (08:07)
[2019-04-27] MEDS: NICOTINE 21MG/24HR 1 EA TRANSDERMAL TD SCH (08:07)
--- NOTE | 2019-04-27 08:41 | IPN ---
DATE: 04/27/2019 SUBJECTIVE: Patient denies any nausea or vomiting. He still complains of left lower quadrant abdominal discomfort rated at 2 out of 10, not exacerbated by meals. The patient has had no fever or chills overnight. Repeat liver function tests are improved with decreasing bilirubins from admission bilirubin of 8.3, current bilirubin of 2.8. AST/ALT has also improved from 263 to [address] abdomen and pelvis is essentially unchanged. The patient is ambulating well. No dizziness. OBJECTIVE/PHYSICAL EXAMINATION: VITAL SIGNS: Temperature 98, pulse 63, respiratory rate 18, blood pressure 116/72, 99% on room air. Generally, patient does have some mild icterus, but no jaundice, no pallor. No use of respiratory accessory muscles. Tongue is midline. He is awake, alert, oriented times three, answering questions appropriately. No jugular venous distention (JVD). No cervical lymphadenopathy or thyromegaly. Lungs are clear to auscultation, no wheezing, rales or rhonchi. Air entry is equal bilaterally. Heart S1, S2 sinus rhythm. No murmurs, rubs or gallops noted. Abdomen is soft, slightly tender left lower quadrant. No rebound or guarding. No hepatosplenomegaly. No carotid bruits. Extremities no cyanosis or clubbing. Skin warm and dry, well perfused. No obvious skin jaundice but he does have some mild icterus. LABORATORY DATA: White count 5.4, hemoglobin 15, hematocrit 46, platelet count 263. Sodium 140, potassium 4.7, chloride 105, bicarb 31, BUN 10, creatinine 0.79, glucose of 99.4, lactic acid of 1.3, calcium 8.7, total bilirubin 2.88, AST 124, ALT 293, alkaline phosphatase 209, ammonia level is 28. Repeat CT abdomen and pelvis is essentially unchanged with no significant changes from prior CT. There is mild hepatosplenomegaly. Two hemangiomas. No changes from prior 04/22/2019. Gallbladder is noted to be collapsed and diffuse gallbladder wall thickening with no biliary dilatation, no significant free fluid. ASSESSMENT/PLAN: This is a 48-year-old homeless male with history of chronic hepatitis C who presented with polysubstance abuse, bipolar disorder, reflux disease, methamphetamine and heroin use and a passive mood disorder, recently diagnosed with acute hepatitis A. CT shows hepatosplenomegaly, hepatic steatosis. Ultrasound showing fatty liver and possible adenomyomatosis with no gallbladder stones. CURRENT ISSUES: 1. Acute hepatitis A. Improving with decreasing bilirubin levels, currently on supportive care. No complaints of nausea or vomiting, tolerating his diet which will be advanced to a low fat/low cholesterol diet. The patient currently has unchanged CT abdomen and pelvis and improving liver function tests. 2. Chronic hepatitis C. RNA, hepatitis and genotype testing will be deferred to outpatient infectious disease specialist. The patient will need a primary care physician referral to ID. 3. Chronic liver disease due to chronic hepatitis C and current acute hepatitis A. Patient will need vaccinations for hepatitis B. He is mildly icteric, but no obvious jaundice with improving bilirubin, AST, ALT. He is continued on supportive care. He did receive IV fluids due to lactic acid elevation. Has no fever, chills or ascites to suspect SBP. He is currently on Xifaxan. No signs of hematemesis or GI bleeding. 4. Chronic back pain. Avoid acetaminophen products. Currently on a Flector patch. 5. Fatty liver. Followup with gastroenterology and ID for chronic hepatitis C. 6. Bipolar disorder. Not on medications. Currently cooperative with no behavioral issues. 7. Reflux disease. On proton pump inhibitor (PPI) and Tums. 8. Tobacco abuse. Currently on a nicotine patch. Tobacco cessation counseling has been provided. 9. Homelessness. Patient and family services (PFS) has been consulted. Patient is to go to [employer] [facility] for housing. Discharge plan is for Wednesday. [facility]
[2019-04-27] MEDS: DICLOFENAC EPOLAMINE 1.3 % PATCH TOP SCH ×2 (11:00→21:16)
[2019-04-27 16:00] VITALS: BP 116/75
[2019-04-27 19:02] VITALS: BP 128/85
[2019-04-27] MEDS ORDERED: KETOROLAC TROMETHAMINE 10 MG TAB PO ONE (22:15)
[2019-04-28] VITALS: BP 115/72
[2019-04-28] MEDS: SLF 3 ML SYR IV SCH ×2 (05:26→14:00)
[2019-04-28] MEDS: HEPARIN SOD (PORCINE) 5000 UNITS/ML VIAL SC SCH ×2 (05:26→15:09)
[2019-04-28 05:38] LABS: BASO # 0.1 10^3/uL (0.0-0.2); EOS # 0.1 10^3/uL (0.0-0.5); EOS % 1.5 % (0.0-3.0); HEMATOCRIT 43.5 % (42.0-52.0); HEMOGLOBIN 14.2 g/dl (13.5-17.5); LYMPH % 33.4 % (24.0-44.0); MEAN CORPUSCULAR HEMOGLOBIN 30.5 pg (27.0-33.0); MEAN CORPUSCULAR HGB CONC 32.6 g/dl (32.0-36.5); MEAN CORPUSCULAR VOLUME 93.5 fl (80.0-96.0); MONO # 0.5 10^3/uL (0.0-0.8); MONO % 8.7 % (0.0-5.0); NEUTROPHILS # 3.2 10^3/uL (1.5-8.5); NEUTROPHILS % 53.4 % (36.0-66.0); PLATELET COUNT, AUTOMATED 268 10^3/uL (150-450); RED BLOOD COUNT 4.65 10^6/uL (4.30-6.10); WHITE BLOOD COUNT 6.1 10^3/uL (4.0-10.0)
[2019-04-28 06:17] LABS: ALBUMIN 2.5 GM/DL (3.2-5.2); ALT/SGPT 264 U/L (12-78); AMYLASE 111 U/L (25-115); BILIRUBIN,TOTAL 2.6 MG/DL (0.2-1.0); BLOOD UREA NITROGEN 17 MG/DL (7-18); CALCIUM LEVEL 8.6 MG/DL (8.5-10.1); CARBON DIOXIDE LEVEL 29 MEQ/L (21-32); CHLORIDE LEVEL 104 MEQ/L (98-107); CREATININE FOR GFR 0.89 MG/DL (0.70-1.30); GLOMERULAR FILTRATION RATE > 60.0 (>56); GLUCOSE, FASTING 112 MG/DL (70-100); LIPASE 376 U/L (73-393); POTASSIUM SERUM 4.4 MEQ/L (3.5-5.1); SODIUM LEVEL 139 MEQ/L (136-145); TOTAL PROTEIN 6.9 GM/DL (6.4-8.2)
[2019-04-28 08:00] VITALS: BP 107/68
[2019-04-28] MEDS ORDERED: LACT10SO29 PO (08:36)
[2019-04-28] MEDS ORDERED: XIFA200T2 PO (08:36)
[2019-04-28] MEDS ORDERED: PANT20TA2 PO (08:36)
[2019-04-28] MEDS: NICOTINE 21MG/24HR 1 EA TRANSDERMAL TD SCH (09:33)
[2019-04-28] MEDS: POLYVINYL ALCOHOL OPHTH SOLN 15 ML(LIQUITEARS) OU SCH ×2 (09:33→15:09)
[2019-04-28] MEDS: LACTULOSE 20 GM/30 ML SYRUP UD PO SCH (09:33)
[2019-04-28] MEDS: VITAMIN D 1,000 INTERNATIONAL UNITS TABLET PO SCH (09:33)
[2019-04-28] MEDS: CAPSAICIN 0.025% CR 60 GM TOP SCH ×2 (09:34→15:09)
[2019-04-28] MEDS: PANTOPRAZOLE 20 MG TAB PO SCH (09:34)
[2019-04-28] MEDS: ASCORBIC ACID 500 MG TAB PO SCH (09:34)
[2019-04-28] MEDS: DICLOFENAC EPOLAMINE 1.3 % PATCH TOP SCH (11:00)
[2019-04-28] MEDS ORDERED: IBUP200T45 PO (13:25)
[2019-04-28] MEDS ORDERED: PRIL20TA2 PO (13:25)
[2019-04-28 13:48] LABS: MONO REFLEX EBV COMP NEGATIVE (NEGATIVE)
--- NOTE | 2019-04-28 14:56 | DSES ---
DATE OF ADMISSION: 04/23/2019 DATE OF DISCHARGE: PRIMARY DISCHARGE DIAGNOSES: 1. Acute hepatitis A. 2. Chronic hepatitis C. 3. Chronic liver disease due to chronic hepatitis C. 4. Chronic back pain. 5. Fatty liver. 6. Bipolar disorder. 7. Reflux disease. 8. Active tobacco abuse. 9. Homelessness. DISCHARGE MEDICATIONS: - Prilosec 20 mg daily - ibuprofen 200 mg every 4 to 6 hours for chronic pain - nicotine patch 21 mg daily - Lactulose 30 mL daily - ascorbic acid 500 daily - magnesium oxide 400 daily - multivitamin one tablet daily - vitamin D 1000 units daily The patient is to followup with primary care provider within 1 week or discharge. He will need referral to infectious disease for hepatitis C treatment. The patient is to have strict handwashing before eating due to acute hepatitis A. HOSPITAL COURSE: This is a 48-year-old male with a history of chronic hepatitis C, active smoking, denies alcohol use, drug use with methamphetamine, previous psychiatric admission for bipolar disorder, mood disorder, and reflux disease, presented to the emergency room with 6 out of 10 pain in the lower back for the past week with recent fall and difficulty walking. No fever or chills. He complained of abdominal pain, weakness, nausea and vomiting. In the emergency room, liver function tests showed transaminitis with elevated bilirubin and AST and ALT with a peak bilirubin of 8.3, AST of 263, ALT of 863. The patient was found to have acute IgM hepatitis A antibody and was treated with supportive care. His hepatitis C antibody index was greater than 11 with hepatitis C RNA still pending. The patient was imaged with liver ultrasound on 04/23/2019 shows common bile duct 5.4 mm without a stone, visualized pancreas and right kidney are without acute findings. Right hepatic lobe consistent with hemangiomas, fatty infiltration of the liver. CT of the abdomen and pelvis on 04/22/2019 shows hepatosplenomegaly, gallbladder wall thickening, soft tissue edema, small hemangioma at the right liver. Due to worsening pain in the left lower quadrant, reimaging with CT of abdomen and pelvis on 04/26/2019 showed no acute changes, no biliary dilatation. The patient was tolerating his diet well. Bilirubin level was decreasing with total bilirubin with a peak of 8.3 and decreasing down to 2.6. AST and ALT also improved. ALT down from 215 on discharge, INR was 1.01. White count was normal. He remained afebrile with no chills. Due to his homelessness, social work had been consulted to provide housing as an outpatient. He will need an outpatient referral to Dr. Cheng on discharge. Reid-Padilla virus was also checked due to abnormal liver function tests and abdominal pain. Time spent on discharge: 30 minutes. WILLIAMD
[2019-04-30 00:26] LABS: EBV AB TO NUCLEAR ANTIGEN >600.0 U/mL (0.0-17.9); EBV VIRAL CAPSID AG IgG 90.1 U/mL (0.0-17.9); EBV VIRAL CAPSID AG IgM <36.0 U/mL (0.0-35.9)
[2019-05-01 14:41] LABS: ANTI-MITOCHONDRIAL ANTIBODY <20.0 Units (0.0-20.0); ANTINUCLEAR ANTIBODIES DIRECT Negative (Negative); CERULOPLASMIN 26.5 mg/dL (16.0-31.0)
== END 2019-04-28 19:05 | disposition home or self-care (01) | DRG 279 ==
LOC: EDBD 19:29 → M ED 19:29 → M ED INP 04-23 01:01 → M PCU 04-23 02:30
PROVIDERS: ADMIT Internal Medicine; ATTEND General Practice
DX: K72.00 Acute and subacute hepatic failure without coma (principal); B15.9 Hepatitis A without hepatic coma; B18.2 Chronic viral hepatitis C; K21.9 Gastro-esophageal reflux disease without esophagitis; F31.9 Bipolar disorder, unspecified; F17.200 Nicotine dependence, unspecified, uncomplicated; M54.5 Low back pain; F15.10 Other stimulant abuse, uncomplicated; F11.10 Opioid abuse, uncomplicated; K76.0 Fatty (change of) liver, not elsewhere classified; Z59.0 Homelessness; Z79.899 Other long term (current) drug therapy

== ENCOUNTER 2019-05-05 01:07 | Inpatient (IN) | payer MEDICAID ==
[~2019-05-05] VITALS: Ht 175.3 cm; Wt 91.8 kg
[~2019-05-05 01:07] MED LIST changes: +CAPS25CR TOP; +CHOL100029 PO; +DICL1PAT TOP; +IBUP200T45 PO; +LACT10SO29 PO; +MAGN400C2 PO; +PANT20TA2 PO; +PRIL20TA2 PO; +TH DTAB2 PO; +VITA500C24 PO; +XIFA200T2 PO
[2019-05-05 02:39] LABS: HEMATOCRIT 45.2 % (42.0-52.0); HEMOGLOBIN 14.9 g/dl (13.5-17.5); MEAN CORPUSCULAR HEMOGLOBIN 30.7 pg (27.0-33.0); PLATELET COUNT, AUTOMATED 231 10^3/uL (150-450); RED BLOOD COUNT 4.86 10^6/uL (4.30-6.10)
[2019-05-05 02:52] LABS: AMPHETAMINES LEVEL URINE NEGATIVE (NEGATIVE); BARBITURATES URINE NEGATIVE (NEGATIVE); BENZODIAZEPINES URINE NEGATIVE (NEGATIVE); CANNABINOIDS URINE NEGATIVE (NEGATIVE); COCAINE METABOLITE URINE NEGATIVE (NEGATIVE); METHADONE URINE NEGATIVE (NEGATIVE); OPIATES URINE NEGATIVE (NEGATIVE); PHENCYCLIDINE URINE NEGATIVE (NEGATIVE)
[2019-05-05 03:15] LABS: ACETAMINOPHEN LEVEL < 2.0 UG/ML (10.0-30.0); ALBUMIN 3.3 GM/DL (3.2-5.2); ALT/SGPT 124 U/L (12-78); BILIRUBIN,DIRECT 1.7 MG/DL (0.0-0.2); BLOOD UREA NITROGEN 17 MG/DL (7-18); CALCIUM LEVEL 9.3 MG/DL (8.5-10.1); CARBON DIOXIDE LEVEL 31 MEQ/L (21-32); CHLORIDE LEVEL 102 MEQ/L (98-107); CREATININE FOR GFR 0.92 MG/DL (0.70-1.30); ETHYL ALCOHOL (ETHANOL) < 0.003 % (0.000-0.010); GLOMERULAR FILTRATION RATE > 60.0 (>56); GLUCOSE, FASTING 69 MG/DL (70-100); POTASSIUM SERUM 4.1 MEQ/L (3.5-5.1); SALICYLATE LEVEL < 1.7 MG/DL (5.0-30.0); SODIUM LEVEL 139 MEQ/L (136-145); TOTAL PROTEIN 7.9 GM/DL (6.4-8.2)
[2019-05-05] MEDS ORDERED: IBUP200C28 PO (06:45)
[2019-05-05] MEDS ORDERED: LACT10SO29 PO (06:45)
[2019-05-05] MEDS ORDERED: OMEP20CA4 PO (06:45)
[2019-05-05] MEDS ORDERED: MOM 30ML SUSPENSION UDC PO PRN (06:45)
[2019-05-05] MEDS ORDERED: NICO21PAT TOP (06:45)
[2019-05-05] MEDS ORDERED: ACETAMINOPHEN TAB 650MG DOSE (2X325MG) PO PRN (06:45)
[2019-05-05 09:52] VITALS: BP 136/85
[2019-05-05 17:22] VITALS: BP 111/67
[2019-05-05] MEDS: MAALOX 30 ML SUSP *UDC PO PRN (20:49)
[2019-05-05] MEDS: traZODone 50 MG TAB PO PRN (20:49)
[2019-05-05] MEDS: IBUPROFEN 400 MG TAB PO PRN (20:50)
[2019-05-06] MEDS: HYDROCORTISONE 1% CREAM 30 GM TOP SCH ×3 (03:04→20:14)
[2019-05-06 06:24] VITALS: BP 117/75
[2019-05-06 07:59] LABS: ALBUMIN 2.8 GM/DL (3.2-5.2); ALT/SGPT 95 U/L (12-78); BILIRUBIN,TOTAL 1.7 MG/DL (0.2-1.0); BLOOD UREA NITROGEN 25 MG/DL (7-18); CALCIUM LEVEL 8.8 MG/DL (8.5-10.1); CARBON DIOXIDE LEVEL 30 MEQ/L (21-32); CHLORIDE LEVEL 105 MEQ/L (98-107); CREATININE FOR GFR 1.04 MG/DL (0.70-1.30); FREE THYROXINE INDEX 3.3 % (1.4-3.8); GLOMERULAR FILTRATION RATE > 60.0 (>56); GLUCOSE, FASTING 91 MG/DL (70-100); POTASSIUM SERUM 4.4 MEQ/L (3.5-5.1); SODIUM LEVEL 140 MEQ/L (136-145); T UPTAKE 28 % (33-40); THYROID STIMULATING HORMONE 0.742 uIU/ML (0.358-3.740); THYROXINE (T4) 11.9 UG/DL (4.5-12.0); TOTAL PROTEIN 6.8 GM/DL (6.4-8.2)
--- NOTE | 2019-05-06 08:18 | HPE ---
DATE OF ADMISSION: 05/05/2019 Please refer to the psychiatric history and evaluation for further details on this admission. This examination and history is intended for medical issues which may need treatment, followup or consultation on this 48-year-old male. SOCIAL HISTORY: He is . [place] [address] He is trying to find a place to live so that he can stay off of drugs and get his hepatitis C treated. ALLERGIES: No known allergies. PAST MEDICAL HISTORY: He was recently hospitalized and treated for infectious hepatitis A. He has history of rheumatoid arthritis and fibromyalgia. History of methicillin-resistant Staphylococcus aureus (MRSA) of the right knee in 2016. Gastroesophageal reflux disease. Hepatitis C. PAST SURGICAL HISTORY: Tonsillectomy. LABORATORY STUDIES: White count 7.0, hemoglobin 14.9, hematocrit 45.2, platelets 231. Electrolytes are normal. BUN 17. Creatinine 0.92. Total bilirubin 3.0. Indirect bilirubin 1.7. AST 52. ALT 124. Alkaline phosphatase 149. TSH 4.48. Toxicology - salicylates 1.7. HOME MEDICATIONS: - ascorbic acid 500 mg by mouth daily - lactulose 30 mL by mouth every a.m. - nicotine patch 21 mg/24 hours - omeprazole 20 mg by mouth daily - vitamin D 1000 units daily - magnesium 400 mg by mouth daily - multivitamin one by mouth daily - ibuprofen 200 mg by mouth every 4-6 hours as needed for pain FAMILY HISTORY: Reviewed with the patient and is noncontributory. REVIEW OF SYSTEMS: 10 systems review was done and other than a rash scaly eczema around his mouth and arthritic pain was negative. PHYSICAL EXAMINATION: 48-year-old cooperative male in no acute distress. Height 69 inches. Weight 90.7 kg. Body mass index (BMI) 29.5. Blood pressure 132/86. Pulse 96. Respirations 18. Temperature 98.3. Oxygen saturation 97% on room air. The patient is alert and oriented times three. Pupils equal and reactive to light. Extraocular movements intact. Cornea and sclera clear. Conjunctiva normal. No facial asymmetry. Pharynx, tongue and gums pink and moist. Tongue is midline. Neck is supple, without lymphadenopathy. No thyromegaly. No goiter. Chest clear to auscultation, without wheeze or retraction. Heart is regular. Abdomen benign. Bowel sounds positive. Genitourinary ()/Rectal: Not done. Extremities show equal strength, full range of motion. No cyanosis, clubbing or edema. Peripheral pulses equal and palpable bilaterally. Skin is warm and dry. IMPRESSION AND PLAN: 1. Psychiatric. Plan per psychiatry. 2. History of hepatitis C and recent hepatitis A. Recheck liver panel. 3. Slightly elevated TSH. Will get thyroid panel. 4. History of rheumatoid arthritis. Currently using ibuprofen as needed. 5. History of gastroesophageal reflux disease. Maalox as needed. 6. The patient on discharge requests referral to Dr. Cheng for treatment of his hepatitis C. He has been drug free he states for over a month. Toxicology screen was negative. 7. Eczema around his mouth. Will order cortisone cream. 8. Deep vein thrombosis (DVT) prophylaxis. Encourage ambulation.
--- NOTE | 2019-05-06 10:43 | MHHPEPDOC ---
General Date Of Admission: May 05, 2019 Legal Status: 9.39 Chief Complaint "I'm probably going to OD on drugs if I don't get admitted." History of Present Illness HISTORY OF THE PRESENT ILLNESS: Patient is a 48 -year-old , male, with a history of MDD and substance abuse last admitted [facility] 10/2018 for depression who self-presented to ED stating that he had been depressed and feared he may harm himself if didn't get help stating in ED "I'm probably going to OD on drugs if I don't get admitted." States he was recently d/c for [facility] medical floor after treated for acute liver failure and was set up at [facility] for 4 days but then benefits ran out and now he is currently homeless. Continued to endorse SI if he didn't get help and wasn't admitted [facility] for treatment. Psychiatric Review of Systems Depression (2 or more weeks): depressed mood, suicidal thoughts Maria Victoria (4 or more days of): denies Psychosis: denies PTSD: history of trauma, nightmares and flashbacks, hypervigilance, avoidance of triggers, mood fluctuations Anxiety: situational anxiety, stressor related anxiety, panic attacks Anxiety/ 6 months or more of: difficulty concentrating, irritability Past Psychiatric History Previous Psychiatric Diagnosis: MDD Previous Psychiatric Admissions: numerous to [facility] last 10/2018 for depression Suicide Attempts: Took methamphetamine to overdose on February 12 2017 Psychiatric Follow-up: Since 2011 has had outpatient treatment for drug addiction at [facility] and [facility], [facility] counseling Psychiatric medications: Trazodone, Fluoxetine Past Medical History Medical Problems 1. Rheumatoid arthritis 2. MRSA of R knee 05/2016 3. Chronic Back pain 4. GERD Head Injury: No Seizures: No Hospitalizations: No Surgeries: Yes (Tonsillectomy) Family Medical/Psychiatric HX Medical Problems noncontributory Psychiatric Disorders: No Addiction: No Suicide Attemps/Completions: No Addiction History nicotine, methamphetamines (in past), heroin (in past), other (cannabis use in past, utox negative) Social History Early Relations/development: Grew up in [facility], parents 1978, then says he became a "rotten child" causing his parents alot of problems. Syas he got into trouble including fighting and starting using cannabis at 13. At 15 started drinking until 19. Says has not had a drunk since. says he also did a lot of LSD during those years. Has had several arrests when younger for mischief. Sibling order: older, 1 younger sister (says he terrorized her when younger) Paternal relationships: Had "ok" relationship, there for "monetary reasons" Education: 10th grade, Went to [employer] for a semester for liberal arts. 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 DSS benefits cut off due to recent incarceration in [facility] Supports: none, this causes distress Abuse/trauma: denies apart from emotional abuse in long term Housing: currently homeless Mental Status Examination General Appearance: unkempt, disheveled, appears stated age, hospital scubs/clothing Build: average Demeanor: withdrawn Eye Contact: poor Activity: slowed, anxious Behavior: cooperative, withdrawn Speech: clear, reg/rate,rhythm,volume Mood: depressed, anxious Mood "I feel worthless" Affect: constricted, flat, congruent, anxious Thought Process: logical/linear, depressed, intact Thought Content (Delusions): none reported, denies SI, HI, AVH Thought Content (Other): none reported, appropriate Thought Content (Aggressive): none reported Perception (Hallucinations): none reported Perception (Other): none reported Cognition (Impairment of): none reported Cognition(Intelligence Est.): average Oriented: Awake, Alert, Oriented times three Insight: fair Judgment: Fair Psychosis: Denies Diagnoses Major Depressive D/O recurrent, severe R/O PTSD History Cannabis/methamphetamine/opioid abuse A-FIB/CHADSVASC A-FIB History Current/History of A-Fib/PAF?: No Assessment Pt seen and states he's here to get "back on my meds" although can't remember what he was taking as it's been years since he's taken anything. States he has a lot of loss, been in assisted, and is now homeless which has just become too much for him and fears he will relapse on drugs although denies he wants to so "Might as well end it." States he has PTSD from being in assisted for 5yrs and mckay ving a few bad experience there causing him to feel hypervigilant in crowds (going to [employer]). States he feels hopeless and worthless as "can't seem to get a break." Is agreeable to starting zoloft for mood, atarax prn anxiety, and remeron for insomnia. States trazodone causes him RLS. Med risks/benefits discussed. Initial Treatment Plan 1. Patient was admitted on a 9.39 status. 2. Complete history was obtained. 3. With patients permission, family will be contacted and database will be expanded. 4. Patients medication regimen will be reviewed and changed accordingly. 5. Patient will be provided with protected environment. 6. Patient will be treated with individual, group, and milieu therapies. 7. Patient will receive supportive psych-education. 8. Discharge planning will commence immediately. 9. Outpatient follow-up treatment will be strongly recommended. 10. The initial treatment plan will focus initially on: * Depression. * Risk for suicide. 11. start zoloft 50mg daily, remeron 15mg qhs, and atarax 50mg q4hr prn anxiety ESTIMATED LENGTH OF STAY: 7-10 DAYS. TIME SPENT COUNSELING AND COORDINATING INITIAL CARE: 60 minutes. Vital Signs Vital Signs Date Time Temp Pulse Resp B/P (MAP) Pulse Ox O2 Delivery O2 Flow Rate FiO2 05/06/19 06:24 97.6 80 16 117/75 (89) 05/05/19 06:21 99 Room Air Laboratory Data 24H Labs Laboratory Tests 2 05/06/19 06:49: Anion Gap 5L, Glomerular Filtration Rate > 60.0, Blood Urea Nitrogen 25H, Creatinine 1.04, Sodium Level 140, Potassium Level 4.4, Chloride Level 105, Carbon Dioxide Level 30, Calcium Level 8.8, Aspartate Amino Transf (AST/SGOT) 39H, Alanine Aminotransferase (ALT/SGPT) 95H, Alkaline Phosphatase 129H, Total Bilirubin 1.7H, Total Protein 6.8, Albumin 2.8L, Albumin/Globulin Ratio 0.70L, Thyroid Stimulating Hormone (TSH) 0.742, Free Thyroxine Index 3.3, Thyroxine (T4) 11.9, Triiodothyronine (T3) Uptake 28L CBC/BMP Laboratory Tests 05/06/19 06:49 Calcium Level 8.8, Aspartate Amino Transf (AST/SGOT) 39 H, Alanine Aminotransferase (ALT/SGPT) 95 H, Alkaline Phosphatase 129 H, Total Bilirubin 1.7 H, Total Protein 6.8, Albumin 2.8 L Medications Scheduled Ascorbic Acid (Vitamin C) 500 Mg Capsule, 500 MG PO DAILY, (Reported) Lactulose (Lactulose) 10 Gm/15 Ml Solution, 30 ML PO QAM, (Reported) Magnesium Oxide (Magnesium) 400 Mg Capsule, 400 MG PO DAILY, (Reported) Multivitamin (Daily Multiple Vitamin) 1 Each Tablet, 1 TAB PO DAILY, (Reported) Nicotine (Nicotine Patch) 21 Mg Patch.td24, 1 PATCH TOP DAILY, (Reported) Omeprazole (Omeprazole) 20 Mg Capsule.dr, 20 MG PO DAILY, (Reported) Vitamin D (Vitamin D3) 1,000 Unit Tablet, 1,000 UNITS PO DAILY, (Reported) Scheduled PRN Ibuprofen (Ibuprofen) 200 Mg Capsule, 200 MG PO Q4-6H PRN for PAIN, (Reported) Allergies Coded Allergies: No Known Allergies (Verified , 04/22/19) PIERO OGDEN DO May 06, 2019 10:43 am
[2019-05-06 15:53] VITALS: BP 122/80
[2019-05-06] MEDS: NICOTINE 21MG/24HR 1 EA TRANSDERMAL TD PRN (17:20)
[2019-05-06] MEDS: SERTRALINE HCL 50 MG TAB PO SCH (18:14)
[2019-05-06] MEDS: IBUPROFEN 400 MG TAB PO PRN (20:14)
[2019-05-06] MEDS: MAALOX 30 ML SUSP *UDC PO PRN (20:14)
[2019-05-06] MEDS: MIRTAZAPINE 15 MG TAB PO SCH (20:14)
[2019-05-06] MEDS: hydrOXYzine 50 MG TAB PO PRN (20:14)
[2019-05-07 06:11] VITALS: BP 124/77
[2019-05-07] MEDS: SERTRALINE HCL 50 MG TAB PO SCH (08:49)
[2019-05-07] MEDS: HYDROCORTISONE 1% CREAM 30 GM TOP SCH ×2 (08:50→20:23)
[2019-05-07] MEDS: NICOTINE 21MG/24HR 1 EA TRANSDERMAL TD PRN (08:51)
--- NOTE | 2019-05-07 10:14 | MHIPNPDOC ---
[facility] Progress Note Progress Note DATE OF SERVICE: 05/07/19 HISTORY: Patient is a 48 -year-old , male, with a history of MDD and substance abuse last admitted [facility] 10/2018 for depression who self-presented to ED stating that he had been depressed and feared he may harm himself if didn't get help stating in ED "I'm probably going to OD on drugs if I don't get admitted." States he was recently d/c for [facility] medical floor after treated for acute liver failure and was set up at [facility] for 4 days but then benefits ran out and now he is currently homeless. Continued to endorse SI if he didn't get help and wasn't admitted [facility] for treatment. Pt seen and states he's here to get "back on my meds" although can't remember what he was taking as it's been years since he's taken anything. States he has a lot of loss, been in [facility], and is now homeless which has just become too much for him and fears he will relapse on drugs although denies he wants to so "Might as well end it." States he has PTSD from being in [facility] for 5yrs and having a few bad experience there causing him to feel hypervigilant in crowds (going to [employer]). States he feels hopeless and worthless as "can't seem to get a break." Is agreeable to starting zoloft for mood, atarax prn anxiety, and remeron for insomnia. States trazodone causes him RLS. Med risks/benefits discussed. VITAL SIGNS: See below. NEW TEST RESULTS: minor elevation in AST/ALT, alk phos that are improved since admission CURRENT MEDICATIONS: See below. MENTAL STATUS EXAMINATION: General Appearance: unkempt, disheveled, appears stated age, hospital scrubs/clothing Build: average Demeanor: withdrawn Eye Contact: poor Activity: slowed, less anxious Behavior: cooperative, withdrawn Speech: clear, reg/rate,rhythm,volume Mood: depressed, anxious Mood "tired... my roommate kept me up all night" Affect: constricted, flat, congruent, less anxious Thought Process: logical/linear, depressed, intact Thought Content (Delusions): none reported, denies SI, HI, AVH Thought Content (Other): none reported, appropriate Thought Content (Aggressive): none reported Perception (Hallucinations): none reported Perception (Other): none reported Cognition (Impairment of): none reported Cognition(Intelligence Est.): average Oriented: Awake, Alert, Oriented times three Insight: fair Judgment: Fair Psychosis: Denies DIAGNOSES: Major Depressive D/O recurrent, severe R/O PTSD History Cannabis/methamphetamine/opioid abuse ASSESSMENT:Pt seen and states that his mood is "ok but tired b/c my roommate kept me up all night" and would like room change so he can sleep better at night. Feels he is tolerating his medications and they're starting to be beneficial. He is attending groups in the afternoon and finding them helpful. Would like help in finding supportive housing upon d/c as currently he's homeless and sanctioned by DSS after being incarcerated. He denies SI/HI, hallucinations, delusions. Pt feels safe here. MANAGEMENT PLAN: continue plan Medications: zoloft 50mg daily remeron 15mg qhs atarax 50mg q4hr prn anxiety TIME SPENT: 30 minutes. Vital Signs Vital Signs Date Time Temp Pulse Resp B/P (MAP) Pulse Ox O2 Delivery O2 Flow Rate FiO2 05/07/19 06:11 98.4 60 14 124/77 (93) 05/05/19 06:21 99 Room Air Current Medications Current Medications Medications (Trade) Dose Ordered Sig/Alfonso Route PRN Reason Start Time Stop Time Status Last Admin Dose Admin Acetaminophen (Tylenol Tab) 650 mg Q6HP PRN PO HEADACHE or DISCOMFORT 05/05/19 06:45 05/05/19 15:01 DC Al Hydrox/Mg Hydrox/Simethicone (Mylanta) 30 ml Q4HP PRN PO HEARTBURN/INDIGESTION 05/05/19 06:45 05/06/19 20:14 Home Med (Med Rec Complete!) ASDIRECTED XX 05/05/19 07:00 05/05/19 06:48 DC Hydrocortisone (Hydrocortisone 1% Cream) APPLY TO AFFECTED A... BID TOP 05/05/19 21:00 05/07/19 08:50 Hydroxyzine HCl (Atarax) 50 mg Q4HP PRN PO ANXIETY/AGITATION 05/06/19 17:30 05/06/19 20:14 Ibuprofen (Advil) 400 mg Q6HP PRN PO PAIN 10/11/19 15:00 05/06/19 20:14 Magnesium Hydroxide (Milk Of Magnesia) 30 ml DAILYPRN PRN PO CONSTIPATION 05/05/19 06:45 Mirtazapine (Remeron) 15 mg QHS PO 05/06/19 21:00 05/06/19 20:14 Nicotine (Nicoderm Cq 21mg) 1 patch DAILY PRN TD Nicotine Withdrawl 05/05/19 06:45 05/07/19 08:51 Sertraline HCl (Zoloft) 50 mg QAM PO 05/06/19 09:00 05/07/19 08:49 Trazodone HCl (Desyrel) 50 mg QHSP PRN PO INSOMNIA 05/05/19 06:45 05/05/19 20:49 Allergies Coded Allergies: No Known Allergies (Verified , 04/22/19) PIERO OGDEN DO May 07, 2019 09:59
[2019-05-07] MEDS: LACTULOSE 20 GM/30 ML SYRUP UD PO SCH (11:44)
[2019-05-07] MEDS: VITAMIN D 1,000 INTERNATIONAL UNITS TABLET PO SCH (11:44)
[2019-05-07] MEDS: OMEPRAZOLE 20 MG CAP PO SCH (11:44)
[2019-05-07] MEDS: ASCORBIC ACID 500 MG TAB PO SCH (11:44)
[2019-05-07 15:50] VITALS: BP 115/76
[2019-05-07] MEDS: IBUPROFEN 400 MG TAB PO PRN (17:59)
[2019-05-07] MEDS: MAALOX 30 ML SUSP *UDC PO PRN (17:59)
[2019-05-07] MEDS: hydrOXYzine 50 MG TAB PO PRN (20:23)
[2019-05-07] MEDS: MIRTAZAPINE 15 MG TAB PO SCH (20:23)
[2019-05-08 06:00] VITALS: BP 107/71
[2019-05-08] MEDS: ASCORBIC ACID 500 MG TAB PO SCH (08:53)
[2019-05-08] MEDS: OMEPRAZOLE 20 MG CAP PO SCH (08:53)
[2019-05-08] MEDS: SERTRALINE HCL 50 MG TAB PO SCH (08:53)
[2019-05-08] MEDS: VITAMIN D 1,000 INTERNATIONAL UNITS TABLET PO SCH (08:54)
[2019-05-08] MEDS: LACTULOSE 20 GM/30 ML SYRUP UD PO SCH (08:54)
[2019-05-08] MEDS: NICOTINE 21MG/24HR 1 EA TRANSDERMAL TD PRN (08:55)
[2019-05-08] MEDS: HYDROCORTISONE 1% CREAM 30 GM TOP SCH ×2 (08:55→20:51)
--- NOTE | 2019-05-08 10:13 | MHIPNPDOC ---
[facility] Progress Note Vital Signs Vital Signs Date Time Temp Pulse Resp B/P (MAP) Pulse Ox O2 Delivery O2 Flow Rate FiO2 05/08/19 06:00 97.0 58 16 107/71 (83) 05/05/19 06:21 99 Room Air Current Medications Current Medications Medications (Trade) Dose Ordered Sig/Alfonso Route PRN Reason Start Time Stop Time Status Last Admin Dose Admin Acetaminophen (Tylenol Tab) 650 mg Q6HP PRN PO HEADACHE or DISCOMFORT 05/05/19 06:45 05/05/19 15:01 DC Al Hydrox/Mg Hydrox/Simethicone (Mylanta) 30 ml Q4HP PRN PO HEARTBURN/INDIGESTION 05/05/19 06:45 05/07/19 17:59 Ascorbic Acid (Vitamin C) 500 mg DAILY PO 05/07/19 09:00 05/08/19 08:53 Home Med (Med Rec Complete!) ASDIRECTED XX 05/05/19 07:00 05/05/19 06:48 DC Hydrocortisone (Hydrocortisone 1% Cream) APPLY TO AFFECTED A... BID TOP 05/05/19 21:00 05/08/19 08:55 Hydroxyzine HCl (Atarax) 50 mg Q4HP PRN PO ANXIETY/AGITATION 05/06/19 17:30 05/07/19 20:23 Ibuprofen (Advil) 400 mg Q6HP PRN PO PAIN 05/05/19 15:00 05/07/19 17:59 Lactulose (Cephulac) 30 ml QAM PO 05/07/19 09:00 05/08/19 08:54 Magnesium Hydroxide (Milk Of Magnesia) 30 ml DAILYPRN PRN PO CONSTIPATION 05/05/19 06:45 Mirtazapine (Remeron) 15 mg QHS PO 05/06/19 21:00 05/07/19 20:23 Nicotine (Nicoderm Cq 21mg) 1 patch DAILY PRN TD Nicotine Withdrawl 05/05/19 06:45 05/08/19 08:55 Omeprazole (PriLOSEC) 20 mg DAILY PO 05/07/19 09:00 05/08/19 08:53 Sertraline HCl (Zoloft) 50 mg QAM PO 05/06/19 09:00 05/08/19 08:53 Trazodone HCl (Desyrel) 50 mg QHSP PRN PO INSOMNIA 05/05/19 06:45 05/05/19 20:49 Vitamin D (Vitamin D) 1,000 units DAILY PO 05/07/19 09:00 05/08/19 08:54 Allergies Coded Allergies: No Known Allergies (Verified , 04/22/19) MEET ZAVALA DO May 08, 2019 10:13
--- NOTE | 2019-05-08 10:22 | MHDSPDOC ---
[facility] Discharge Summary Vital Signs/I&Os Vital Signs Date Time Temp Pulse Resp B/P (MAP) Pulse Ox O2 Delivery O2 Flow Rate FiO2 05/08/19 06:00 97.0 58 16 107/71 (83) 05/05/19 06:21 99 Room Air Medications Scheduled Ascorbic Acid (Vitamin C) 500 Mg Capsule, 500 MG PO DAILY, (Reported) Lactulose (Lactulose) 10 Gm/15 Ml Solution, 30 ML PO QAM, (Reported) Magnesium Oxide (Magnesium) 400 Mg Capsule, 400 MG PO DAILY, (Reported) Multivitamin (Daily Multiple Vitamin) 1 Each Tablet, 1 TAB PO DAILY, (Reported) Nicotine (Nicotine Patch) 21 Mg Patch.td24, 1 PATCH TOP DAILY, (Reported) Omeprazole (Omeprazole) 20 Mg Capsule.dr, 20 MG PO DAILY, (Reported) Vitamin D (Vitamin D3) 1,000 Unit Tablet, 1,000 UNITS PO DAILY, (Reported) Scheduled PRN Ibuprofen (Ibuprofen) 200 Mg Capsule, 200 MG PO Q4-6H PRN for PAIN, (Reported) Allergies Coded Allergies: No Known Allergies (Verified , 04/22/19) MEET ZAVALA DO May 08, 2019 10:22
--- NOTE | 2019-05-08 10:41 | MHIPNPDOC ---
[facility] Progress Note Progress Note Inpatient Progress Note Jez Beltran MRN: N/A Date of : N/A Date of Service: 05/08/2019 History of Present Illness The patient is a 48-year-old man with a history of depression and substance use, last admitted to inpatient psychiatry in October 2018, presents to the ER by himself stating that he had become depressed and it appeared he "might harm himself if he did not get admitted." He has recently been on the [facility] Medical floor after being treated for acute liver failure. He was set up in a [employer] hotel for four days, but the benefits ran out and he is currently homeless. He did not participate in their program and subsequently was sanctioned. Interval History The patient was met with today for the first time by this provider. He is generally amenable. However, he speaks about his depression very contingently based on his housing. He does appear to focus on housing as the primary stressor and what makes him "depressed." He has been amenable on the unit but has generally stayed in his room, not participating in programming. He reports that he "wants to go to an inpatient psych unit" but reports that he may not make much progress here on our unit as it is "not long-term enough." Discussed with the patient that long-term psychiatric treatment is not appropriate for his current housing problems. He appeared to misunderstand that inpatient psychiatry was not a substitute for housing. He has been denying suicidality over the weekend when asked by staff. He has had no major behavioral problems. Review Of Systems General: Denies fever or weight changes, reports some night sweats Cardiovascular: Denies Chest pain or palpations GI: Denies Nausea, vomiting, or bowel changes Respiratory: Denies shortness of breath or cough Neuro: Denies dizziness, tremors Derm: Denies any rashes or pruritus : Denies any dysuria or urinary dysfunction MSK: Denies any muscle tightness or stiffness HEENT: Denies any vision changes or headaches Heme/Lymph: denies any bruising or bleeding Endo: denies any cold/heat intolerance or water intake changes Psychotherapy None on this visit. Vital Signs Reviewed. Mental Status Examination General: Well dressed with good hygiene Speech: Spontaneous and fluid Thought processes: Linear and logical MSK: Smooth and coordinated gait, no signs of tremors or involuntary orofacial movements Thought content: Mild hopelessness. Abstract reasoning, and computation: Intact Description of associations: Intact Description of abnormal or psychotic thoughts: Denies any suicidal or homicidal ideation. Denies any auditory or visual hallucinations. Does not appear to be responding to internal stimuli. Does not appear to be endorsing any bizarre or paranoid ideation. Judgment: Fair Insight: Fair Orientation: Alert and orientated 3 Cognition: Grossly normal Recent and remote memory: Intact Attention span and concentration: Intact Fund of knowledge: Adequate Mood: "Okay" Affect: Mildly dysthymic Diagnoses Unspecified depressive disorder. Likely adjustment versus factitious/malingering. Cannabis use disorder. Methamphetamine use disorder. Opioid use disorder. Unspecified trauma stress related disorder. Rule out substance-induced. Assessment and Plan Unspecified depressive disorder/unspecified trauma stress related disorder: Continue Zoloft 50 mg daily, discontinue Remeron, start Ambien 2.5 mg QHS. Discussed risks, benefits and potential side effects with patient as well as alternatives. Cannabis, methamphetamine and opioid use disorders: Recommend outpatient addictions. Disposition Will contact DSS at [facility] in order to attempt to obtain emergency/temporary placement as patient has stabilized significantly, however, he currently has no safe discharge. Time Spent 20 minutes [id number]. Wednesday Vital Signs Vital Signs Date Time Temp Pulse Resp B/P (MAP) Pulse Ox O2 Delivery O2 Flow Rate FiO2 05/08/19 06:00 97.0 58 16 107/71 (83) 05/05/19 06:21 99 Room Air Current Medications Current Medications Medications (Trade) Dose Ordered Sig/Alfonso Route PRN Reason Start Time Stop Time Status Last Admin Dose Admin Acetaminophen (Tylenol Tab) 650 mg Q6HP PRN PO HEADACHE or DISCOMFORT 05/05/19 06:45 05/05/19 15:01 DC Al Hydrox/Mg Hydrox/Simethicone (Mylanta) 30 ml Q4HP PRN PO HEARTBURN/INDIGESTION 05/05/19 06:45 05/07/19 17:59 Ascorbic Acid (Vitamin C) 500 mg DAILY PO 05/07/19 09:00 05/08/19 08:53 Home Med (Med Rec Complete!) ASDIRECTED XX 05/05/19 07:00 05/05/19 06:48 DC Hydrocortisone (Hydrocortisone 1% Cream) APPLY TO AFFECTED A... BID TOP 05/05/19 21:00 05/08/19 08:55 Hydroxyzine HCl (Atarax) 50 mg Q4HP PRN PO ANXIETY/AGITATION 05/06/19 17:30 05/07/19 20:23 Ibuprofen (Advil) 400 mg Q6HP PRN PO PAIN 05/05/19 15:00 05/07/19 17:59 Lactulose (Cephulac) 30 ml QAM PO 05/07/19 09:00 05/08/19 08:54 Magnesium Hydroxide (Milk Of Magnesia) 30 ml DAILYPRN PRN PO CONSTIPATION 05/05/19 06:45 Mirtazapine (Remeron) 15 mg QHS PO 05/06/19 21:00 05/07/19 20:23 Nicotine (Nicoderm Cq 21mg) 1 patch DAILY PRN TD Nicotine Withdrawl 05/05/19 06:45 05/08/19 08:55 Omeprazole (PriLOSEC) 20 mg DAILY PO 05/07/19 09:00 05/08/19 08:53 Sertraline HCl (Zoloft) 50 mg QAM PO 05/06/19 09:00 05/08/19 08:53 Trazodone HCl (Desyrel) 50 mg QHSP PRN PO INSOMNIA 05/05/19 06:45 05/05/19 20:49 Vitamin D (Vitamin D) 1,000 units DAILY PO 05/07/19 09:00 05/08/19 08:54 Allergies Coded Allergies: No Known Allergies (Verified , 04/22/19) MEET ZAVALA DO May 08, 2019 10:41
[2019-05-08] MEDS: MAALOX 30 ML SUSP *UDC PO PRN ×2 (13:17→23:01)
[2019-05-08] MEDS: IBUPROFEN 400 MG TAB PO PRN ×2 (13:17→20:51)
[2019-05-08 15:34] VITALS: BP 122/75
[2019-05-08] MEDS ORDERED: zolPIDEM TARTRATE 5 MG TAB PO SCH (21:00)
[2019-05-08] MEDS: traZODone 50 MG TAB PO PRN (22:33)
[2019-05-09 06:35] VITALS: BP 121/75
[2019-05-09] MEDS: NICOTINE 21MG/24HR 1 EA TRANSDERMAL TD PRN (08:51)
[2019-05-09] MEDS: LACTULOSE 20 GM/30 ML SYRUP UD PO SCH (08:51)
[2019-05-09] MEDS: HYDROCORTISONE 1% CREAM 30 GM TOP SCH (08:51)
[2019-05-09] MEDS: OMEPRAZOLE 20 MG CAP PO SCH (08:51)
[2019-05-09] MEDS: VITAMIN D 1,000 INTERNATIONAL UNITS TABLET PO SCH (08:51)
[2019-05-09] MEDS: SERTRALINE HCL 50 MG TAB PO SCH (08:51)
[2019-05-09] MEDS: ASCORBIC ACID 500 MG TAB PO SCH (08:51)
--- NOTE | 2019-05-09 11:55 | MHDSPDOC ---
[facility] Discharge Summary Discharge Summary DATE OF ADMISSION: May 05, 2019 at 06:35 DATE OF DISCHARGE: 05/09/19 Jez Beltran Discharge Jez Beltran Select Gender MRN: N/A Date of : MM/DD/YYYY Date of Service: 05/09/2019 Diagnoses Unspecified depressive disorder. Likely adjustment versus factitious/malingering. Cannabis use disorder. Methamphetamine use disorder. Opioid use disorder. Unspecified trauma stress related disorder. Rule out substance-induced. History of Present Illness The patient is a 48-year-old man with a history of depression and substance use, last admitted to inpatient psychiatry in October 2018, presents to the ER by himself stating that he had become depressed and it appeared he "might harm him self if he did not get admitted." He has recently been on the [facility] floor after being treated for acute liver failure. He was set up in a [facility] hotel for four days, but the benefits ran out and he is currently homeless. He did not participate in their program and subsequently was sanctioned. Consultants Involved Hospitalist/PCP screening Treatment and Progress On The Unit The patient was admitted and started on sertraline and Remeron. He subsequently was taken off of Remeron as it was unhelpful for his sleep. He was highly focused on housing the entirety of his admission leading this provider to believe that his main reason for being admitted was housing problems. He has been not cooperative with [facility] and has not participated in any programming to obtain any housing. The patient reports significant stressors such as recently with group home, however, he has been generally unparticipative in any unit programming and reports that he wants to go to "penitentiary" as he feels that, that would be a better place to "work on himself." The patient had been denying suicidality for an extensive period of time since his admission. The only time he would mention suicidality is contingent if he did not have a suitable housing arrangement further leading this provider to believe that he was malingering for this. On the day of discharge we arranged housing option in [place] as he has been sanctioned by [facility] and currently has no services that are willing to work with him in [facility] due to his lack of progress and focus on/issues with drug use. The patient reported he was amenable to this idea and he was given information for [facility] as well in [place] if he decided he wished to pursue treatment in that area. At the day of discharge he was not suicidal or homicidal, did not meet involuntary criteria as he was not posing an imminent risk to himself or others. He was not significantly impaired by mental health condition, but appeared to be uninvolved secondary to malingering in my clinical judgment. He was not appropriate for a further voluntary admission as his presentation was not likely due to being highly impaired by a mental health condition although he would qualify for some of the diagnosis based on the symptoms that he discussed. Discharge Assessment 48-year-old man with a history of depression and substance use. He has had difficulty with housing which appears to be the primary motivator behind his admission after being admitted , it appears that after creating a safe discharge plan he is an appropriate discharge as he no longer meets any clinical criteria for further voluntary admission. Mental Status Examination General: Well dressed with good hygiene Speech: Spontaneous and fluid Thought processes: Linear and logical MSK: Smooth and coordinated gait, no signs of tremors or involuntary orofacial movements Thought content: Future orientated Abstract reasoning, and computation: Intact Description of associations: Intact Description of abnormal or psychotic thoughts: Denies any suicidal or homicidal ideation. Denies any auditory or visual hallucinations. Does not appear to be responding to internal stimuli. Does not appear to be endorsing any bizarre or paranoid ideation. Judgment: fair Insight: fair Orientation: Alert and orientated 3 Cognition: Grossly normal Recent and remote memory: Intact Attention span and concentration: Intact Fund of knowledge: Adequate Mood: "okay" Affect: Euthymic with a full range Follow Up The social work team worked during the predischarge meeting in order to evaluate for further issues of lethality address them fully before discharge. They worked on safety planning with the patient's family members in order to ensure that the patient will have a safe and effective discharge. Time Spent The amount of time spent in the coordination of care for this patient was approximately 30 minutes. Vital Signs/I&Os Vital Signs Date Time Temp Pulse Resp B/P (MAP) Pulse Ox O2 Delivery O2 Flow Rate FiO2 05/09/19 06:35 98.6 58 14 121/75 (90) 05/05/19 06:21 99 Room Air Medications Scheduled Ascorbic Acid (Vitamin C) 500 Mg Capsule, 500 MG PO DAILY, (Reported) Lactulose (Lactulose) 10 Gm/15 Ml Solution, 30 ML PO QAM, (Reported) Magnesium Oxide (Magnesium) 400 Mg Capsule, 400 MG PO DAILY, (Reported) Multivitamin (Daily Multiple Vitamin) 1 Each Tablet, 1 TAB PO DAILY, (Reported) Nicotine (Nicotine Patch) 21 Mg Patch.td24, 1 PATCH TOP DAILY, (Reported) Omeprazole (Omeprazole) 20 Mg Capsule.dr, 20 MG PO DAILY, (Reported) Sertraline Hcl (Zoloft) 50 Mg Tablet, 50 MG PO DAILY for mood, #10 Vitamin D (Vitamin D3) 1,000 Unit Tablet, 1,000 UNITS PO DAILY, (Reported) Scheduled PRN Ibuprofen (Ibuprofen) 200 Mg Capsule, 200 MG PO Q4-6H PRN for PAIN, (Reported) Nicotine (Nicotine Patch) 21 Mg Patch.td24, 1 PATCH TD DAILY PRN for Nicotine Withdrawl for 30 Days, #30 Allergies Coded Allergies: No Known Allergies (Verified , 04/22/19) MEET ZAVALA DO May 09, 2019 11:55
[2019-05-09] MEDS ORDERED: SERT-155 PO (12:32)
[2019-05-09] MEDS ORDERED: NICO21PAT TD (12:32)
[2019-05-09] MEDS: MAALOX 30 ML SUSP *UDC PO PRN (14:29)
[2019-05-10] MEDS ORDERED: ZOLO50TA PO (10:01)
== END 2019-05-09 15:36 | disposition home or self-care (01) | DRG 754 ==
LOC: M ED 01:07 → M ED INP 06:35 → M PSY 09:42
PROVIDERS: ADMIT Psychiatry & Neurology Psychiatry; ATTEND Psychiatry & Neurology Addiction Medicine
DX: F43.21 Adjustment disorder with depressed mood (principal); F33.2 Major depressive disorder, recurrent severe without psychotic features; F15.20 Other stimulant dependence, uncomplicated; F11.20 Opioid dependence, uncomplicated; F68.10 Factitious disorder imposed on self, unspecified; F43.9 Reaction to severe stress, unspecified; F43.10 Post-traumatic stress disorder, unspecified; Z59.0 Homelessness; M06.9 Rheumatoid arthritis, unspecified; M54.9 Dorsalgia, unspecified; K21.9 Gastro-esophageal reflux disease without esophagitis; Z86.14 Personal history of Methicillin resistant Staphylococcus aureus infection; F17.210 Nicotine dependence, cigarettes, uncomplicated; F12.11 Cannabis abuse, in remission; Z79.899 Other long term (current) drug therapy; B19.20 Unspecified viral hepatitis C without hepatic coma; M79.7 Fibromyalgia; R94.6 Abnormal results of thyroid function studies; L30.9 Dermatitis, unspecified; G47.00 Insomnia, unspecified

== ENCOUNTER 2019-05-28 01:25 | Emergency (ER) | payer MEDICAID, OTHER ==
[~2019-05-28] VITALS: Ht 175.3 cm; Wt 95.5 kg
[~2019-05-28 01:25] MED LIST changes: +IBUP200C28 PO; +NICO21PAT TOP; +OMEP-358 PO; -OMEP20TA PO; -OMEP40CA2 PO; +OMEP40CA97 PO; +SERT50TA29 PO; +ZOLO50TA PO
[2019-05-28 01:42] LABS: HEMATOCRIT 44.7 % (42.0-52.0); HEMOGLOBIN 15.3 g/dl (13.5-17.5); MEAN CORPUSCULAR HGB CONC 34.2 g/dl (32.0-36.5); MEAN CORPUSCULAR VOLUME 90.7 fl (80.0-96.0); PLATELET COUNT, AUTOMATED 153 10^3/uL (150-450); RED BLOOD COUNT 4.93 10^6/uL (4.30-6.10); WHITE BLOOD COUNT 5.4 10^3/uL (4.0-10.0)
[2019-05-28] MEDS ORDERED: KETOROLAC 30 MG/ML VIAL (J1885) IV ONE (02:00)
[2019-05-28 02:41] LABS: ALBUMIN 3.6 GM/DL (3.2-5.2); ALT/SGPT 100 U/L (12-78); BILIRUBIN,DIRECT 0.6 MG/DL (0.0-0.2); BILIRUBIN,TOTAL 1.3 MG/DL (0.2-1.0); BLOOD UREA NITROGEN 9 MG/DL (7-18); CARBON DIOXIDE LEVEL 32 MEQ/L (21-32); CHLORIDE LEVEL 100 MEQ/L (98-107); CREATININE FOR GFR 0.96 MG/DL (0.70-1.30); GLOMERULAR FILTRATION RATE > 60.0 (>56); GLUCOSE, FASTING 96 MG/DL (70-100); LIPASE 199 U/L (73-393); POTASSIUM SERUM 4.4 MEQ/L (3.5-5.1); SODIUM LEVEL 138 MEQ/L (136-145); TOTAL PROTEIN 7.9 GM/DL (6.4-8.2)
[2019-05-28] MEDS ORDERED: ISOVUE-370 76% 100ML VIAL (Q9967) As Ordered ONE (03:04)
--- NOTE | 2019-05-28 04:17 | REPVR ---
PROCEDURE INFORMATION: Exam: CT Abdomen And Pelvis With Contrast Exam date and time: 05/28/2019 3:18 AM Clinical history: 48 years old, male; Abdominal pain; Localized; Left; Additional info: Left sided abd pain TECHNIQUE: Imaging protocol: Computed tomography of the abdomen and pelvis with intravenous contrast. Radiation optimization: All CT scans at this facility use at least one of these dose optimization techniques: automated exposure control; mA and/or kV adjustment per patient size (includes targeted exams where dose is matched to clinical indication); or iterative reconstruction. Contrast material: ISOVUE 370; Contrast volume: 100 ml; Contrast route: IV; COMPARISON: CT ABD/PEL W/IV ORAL CONTRAS 04/26/2019 11:06 AM FINDINGS: Lungs: Bilateral dependent and linear atelectasis versus scarring. Mediastinum: Small hiatal hernia. Liver: Hepatomegaly. 2 stable liver hemangiomata in the right hepatic lobe measuring up to 2 cm in diameter. 8mm low attenuation left hepatic lobe lesion too small to characterize. Gallbladder and bile ducts: Normal. No calcified stones. No ductal dilation. Pancreas: Normal. No ductal dilation. Spleen: Normal. No splenomegaly. Adrenals: Normal. No mass. Kidneys and ureters: Normal. No hydronephrosis. Stomach and bowel: Diverticulosis of the colon. No evidence of acute diverticulitis. Appendix: Appendix is mildly distended with fluid measuring up to 9 mm in diameter and demonstrates wall thickening with stranding of the adjacent fat. Early acute appendicitis is suspected. Intraperitoneal space: Unremarkable. No free air. No significant fluid collection. Vasculature: Unremarkable. No abdominal aortic aneurysm. Lymph nodes: Celiac axis, common kim hepatis, and foramen of Margaux adenopathy. Bladder: Unremarkable as visualized. Reproductive: Mildly enlarged prostate. Bones/joints: Mild stenosis of the spinal canal at L4-5. Soft tissues: Fat containing bilateral inguinal hernias. IMPRESSION: Appendix is mildly distended with fluid measuring up to 9 mm in diameter and demonstrates wall thickening with stranding of the adjacent fat. Early acute appendicitis is suspected. COMMENT: Consistent with the [employer]'s Incidental Findings Committee Report (J Am Rosey Radiol 2010): Unless the patient's specific circumstances suggest otherwise, any liver lesion 0.5 cm or less, any cystic kidney lesion less than 1.0 cm, and/or any adrenal lesion 1.0 cm or less not otherwise characterized in this report as possessing suspicious or indeterminate imaging features is/are highly likely to be benign and do not require follow-up imaging or biopsy. Electronically signed by: Abisai Fried On 05/28/2019 04:16:58 AM
[2019-05-28 04:45] VITALS: BP 102/63
== END 2019-05-28 05:14 | disposition home or self-care (01) ==
LOC: M ED 01:25
DX: R93.5 Abnormal findings on diagnostic imaging of other abdominal regions, including retroperitoneum (principal); R10.12 Left upper quadrant pain; R10.32 Left lower quadrant pain; B19.20 Unspecified viral hepatitis C without hepatic coma; F17.210 Nicotine dependence, cigarettes, uncomplicated; Z59.0 Homelessness; Z79.899 Other long term (current) drug therapy
CPT/HCPCS: 74177; 80048; 80076; 81001; 83690; 85025; 96374; 99284; J1885; Q9967

== ENCOUNTER 2020-04-28 16:59 | Emergency (ER) | payer MEDICAID, OTHER, SELFPAY ==
[~2020-04-28] VITALS: Ht 175.3 cm; Wt 90.9 kg
[~2020-04-28 16:59] MED LIST changes: -DICL1PAT TOP; +DICL1PAT6 TOP; -FLUO20CA19 PO; +FLUO20CA22 PO; -LACT10SO29 PO; +LACT20EL PO; +OMEP1CAP73 PO; -OMEP20CA4 PO; -PANT20TA2 PO; +PANT20TA6 PO; -TRAZ10TA PO; +TRAZ1TAB12 PO
[2020-04-28] MEDS ORDERED: LIDOCAINE 1% MDV 20ML VIAL SC ONE (17:30)
[2020-04-28] MEDS ORDERED: ONDANSETRON 4 MG ORAL DISINTEGRATING TAB PO ONE (18:15)
[2020-04-28] MEDS ORDERED: MORPHINE 4 MG/ML 1ML VIAL/SYRINGE (J2270) IM ONE (18:15)
[2020-04-28] MEDS ORDERED: KEFL500C17 PO (19:03)
[2020-04-28] MEDS ORDERED: ceFAZolin SOD 1 GM in IV 1 EA IV ONE (19:15)
[2020-04-28] MEDS ORDERED: ceFAZolin SOD 1 GM in D5W MINI-BAG PLUS 50 ML IV ONE (19:15)
[2020-04-28 20:50] VITALS: BP 142/94
--- NOTE | 2020-05-01 16:28 | ER ---
DATE OF CONSULTATION: 04/28/2020 CHIEF COMPLAINT: Right forearm laceration. HISTORY OF PRESENT ILLNESS: Jez Beltran is a 49-year-old male who was trying to remove some glass from a windowpane when he sustained a laceration to the ulnar aspect of his right forearm. He is right hand dominant. There was a significant laceration and bleeding so he presented to the Emergency Room. There was exposed muscle belly and I was consulted for further management. Patient denies any weakness or numbness in the arm. There is some slight paresthesias in the ulnar distribution, but he states overall he is close to his baseline function. PAST MEDICAL HISTORY: Includes: 1. Hepatitis C. 2. Depression. 3. Anti-social personality disorder. 4. Bipolar disorder. 5. Cluster B personality disorder. 6. History of polysubstance dependence. ALLERGIES: No known drug allergies. PHYSICAL EXAMINATION: General: Well appearing, alert and oriented, in no acute distress. Pulmonary: Regular and non-labored breathing. CV: Regular radial pulse on the right. Musculoskeletal: On the right forearm there is approximately a 10-13 cm laceration extending along the volar aspect of the mid-forearm. There is a small amount of exposed muscle belly. Patient has intact flexion, extension, abduction and adduction of his fingers. He has intact flexion and extension of his wrist. He also has intact radial and ulnar deviation. Sensation is intact to light touch in the median, ulnar and radial distribution. Fingers are well perfused with brisk capillary refill. IMPRESSION: Large forearm laceration with damage to the muscle/underlying muscle belly. PLAN: Patient does appear to be neurovascularly intact without any major deficit. He did agree to have his laceration repaired in the ER. I did anesthetize the area with approximately 18 mL of 1% lidocaine. It was then copiously irrigated using 2 liters of normal saline. Following this the wound was approximated using 3-0 Monocryl and then closed using booker. A sterile dressing was applied. Patient tolerated this well and remained neurovascularly intact after the procedure. He will be discharged home on antibiotics. He states he had a recent tetanus shot. He will need to follow up with a PA in the next 1-2 days for a wound check. He knows to come back to the ER right away if he is having any acute issues. AUGUSTINE
== END 2020-04-28 20:52 | disposition home or self-care (01) ==
LOC: M ED 16:59
DX: S51.811A Laceration without foreign body of right forearm, initial encounter (principal); W25.XXXA Contact with sharp glass, initial encounter; Y92.098 Other place in other non-institutional residence as the place of occurrence of the external cause; Z86.19 Personal history of other infectious and parasitic diseases; F19.21 Other psychoactive substance dependence, in remission; F32.9 Major depressive disorder, single episode, unspecified; F60.2 Antisocial personality disorder; F60.89 Other specific personality disorders; F17.200 Nicotine dependence, unspecified, uncomplicated
CPT/HCPCS: 12004; 80047; 96365; 96372; 99284; J0690; J2270; Q0162

== ENCOUNTER 2023-08-25 23:16 | Emergency (ER) | payer OTHER ==
[~2023-08-25] VITALS: Ht 175.3 cm; Wt 104.5 kg
[~2023-08-25 23:16] MED LIST changes: -CELE1CAP7 PO; +CELE1CAP99 PO; -IBUP200T45 PO; +IBUP200T46 PO; +KEFL500C17 PO; +LISI10TA22 PO; -LISI10TA4 PO; +OMEP40CA4 PO; -OMEP40CA97 PO
[2023-08-25 23:32] VITALS: TEMP 97.2
[2023-08-26] MEDS ORDERED: DALBAVANCIN 1,500 MG in D5W 250 ML IV ONE (00:25)
[2023-08-26 01:00] VITALS: BP 155/86
[2023-08-26 01:31] VITALS: O2SAT 98
== END 2023-08-26 02:30 | disposition home or self-care (01) ==
LOC: EDBD 23:16 → M ED 08-26 01:25
DX: L03.114 Cellulitis of left upper limb (principal); L03.115 Cellulitis of right lower limb; L03.116 Cellulitis of left lower limb; F31.9 Bipolar disorder, unspecified; F19.10 Other psychoactive substance abuse, uncomplicated; Z86.19 Personal history of other infectious and parasitic diseases; F17.200 Nicotine dependence, unspecified, uncomplicated
CPT/HCPCS: 87040; 96365; 99284; J0875

== ENCOUNTER 2024-03-01 17:31 | Emergency (ER) | payer MEDICAID, OTHER, SELFPAY ==
[~2024-03-01] VITALS: Ht 175.3 cm; Wt 90.7 kg
[~2024-03-01 17:31] MED LIST changes: +FLUO-365 PO; -FLUO20CA22 PO; +ONDA-282 PO; -ONDA4TAB6 PO
[2024-03-01 17:48] VITALS: TEMP 97.8
[2024-03-01] MEDS: KETOROLAC 60MG 2ML VIAL IM ONE (19:42)
[2024-03-01] MEDS: BOOSTRIX VACCINE (TETANUS/DIPHTH/ACEL. PERTUSSIS) 0.5ML SYR IM ONE (19:43)
[2024-03-01 20:16] VITALS: O2SAT 99
[2024-03-01] MEDS ORDERED: AUGM500T34 PO (20:27)
[2024-03-01 20:45] VITALS: BP 181/103
== END 2024-03-01 21:06 | disposition home or self-care (01) ==
LOC: M ED 17:31 → EDBD 17:31 → M ED 21:06
DX: S41.151A Open bite of right upper arm, initial encounter (principal); W54.0XXA Bitten by dog, initial encounter; Y92.9 Unspecified place or not applicable; Y93.9 Activity, unspecified; Y99.9 Unspecified external cause status; K21.9 Gastro-esophageal reflux disease without esophagitis; F17.290 Nicotine dependence, other tobacco product, uncomplicated; F14.10 Cocaine abuse, uncomplicated; F10.10 Alcohol abuse, uncomplicated; Z23 Encounter for immunization
CPT/HCPCS: 73060; 90471; 90715; 96372; 99284; J1885

== ENCOUNTER 2024-03-01 23:07 | Emergency (ER) | payer OTHER ==
[~2024-03-01] VITALS: Ht 175.3 cm; Wt 95.5 kg
[~2024-03-01 23:07] MED LIST changes: +AUGM500T34 PO
[2024-03-01 23:17] VITALS: TEMP 97.6
[2024-03-02 03:21] VITALS: BP 150/89; O2SAT 99
== END 2024-03-02 03:24 | disposition home or self-care (01) ==
LOC: M ED 23:07
DX: S40.021A Contusion of right upper arm, initial encounter (principal); Y92.9 Unspecified place or not applicable; Y99.9 Unspecified external cause status; Y93.9 Activity, unspecified; W54.0XXA Bitten by dog, initial encounter; F17.290 Nicotine dependence, other tobacco product, uncomplicated; F14.10 Cocaine abuse, uncomplicated; F10.10 Alcohol abuse, uncomplicated

== ENCOUNTER 2024-03-02 08:40 | Inpatient (IN) | payer OTHER, MEDICAID ==
[~2024-03-02] VITALS: Ht 175.3 cm; Wt 90.5 kg
[2024-03-02 09:54] LABS: BASO % 0.2 % (0.0-1.0); EOS % 0.2 % (0.0-3.0); HEMATOCRIT 41.9 % (42.0-52.0); HEMOGLOBIN 13.8 g/dl (13.5-17.5); LYMPH # 1.4 10^3/uL (1.5-5.0); MEAN CORPUSCULAR HEMOGLOBIN 30.1 pg (27.0-33.0); MEAN CORPUSCULAR HGB CONC 32.9 g/dl (32.0-36.5); MEAN CORPUSCULAR VOLUME 91.3 fl (80.0-96.0); MONO # 0.4 10^3/uL (0.0-0.8); MONO % 7.9 % (2.0-8.0); NEUTROPHILS # 3.5 10^3/uL (1.5-8.5); NEUTROPHILS % 65.3 % (36.0-66.0); PLATELET COUNT, AUTOMATED 167 10^3/uL (150-450); RED BLOOD COUNT 4.59 10^6/uL (4.30-6.10); WHITE BLOOD COUNT 5.3 10^3/uL (4.0-10.0)
[2024-03-02 10:04] LABS: ERYTHROCYTE SEDIMENTATION RATE 46 mm/hr (0-20)
[2024-03-02] MEDS: AMPICILLIN SOD/SULBACTAM SOD 3 GM in D5W MINI-BAG PLUS 100 ML IV ONE (10:16)
[2024-03-02] MEDS: KETOROLAC 30 MG/ML 1ML VIAL IV ONE (10:17)
[2024-03-02 10:19] LABS: BLOOD UREA NITROGEN 14 MG/DL (9-23); CALCIUM LEVEL 8.5 MG/DL (8.5-10.1); CARBON DIOXIDE LEVEL 27 MMOL/L (20-31); CHLORIDE LEVEL 101 MMOL/L (98-107); CREATININE FOR GFR 1.26 MG/DL (0.70-1.30); GLOMERULAR FILTRATION RATE > 60.0 (>56); GLUCOSE, FASTING 112 MG/DL (60-100); POTASSIUM SERUM 3.8 MMOL/L (3.5-5.1); SODIUM LEVEL 133 MMOL/L (136-145)
[2024-03-02] MEDS: LIDOCAINE 2% MDV 20ML VIAL SC ONE (11:16)
[2024-03-02] MEDS: MORPHINE 2 MG/ML 1ML VIAL IV ONE (12:54)
[2024-03-02] MEDS ORDERED: ACETAMINOPHEN TAB 650MG DOSE (2X325MG) PO PRN (13:50)
[2024-03-02] MEDS ORDERED: HOME MED LIST COMPLETE! XX SCH (13:50)
[2024-03-02 14:16] LABS: BARBITURATES URINE NEGATIVE (NEGATIVE); BENZODIAZEPINES URINE NEGATIVE (NEGATIVE); CANNABINOIDS URINE NEGATIVE (NEGATIVE); METHADONE URINE NEGATIVE (NEGATIVE); OPIATES URINE NEGATIVE (NEGATIVE); PHENCYCLIDINE URINE NEGATIVE (NEGATIVE)
[2024-03-02 14:19] LABS: AMPHETAMINES LEVEL URINE POSITIVE (NEGATIVE); COCAINE METABOLITE URINE POSITIVE (NEGATIVE)
[2024-03-02 15:05] VITALS: BP 159/92; TEMP 98.1; O2SAT 98
[2024-03-02] MEDS: AMPICILLIN SOD/SULBACTAM SOD 3 GM in D5W MINI-BAG PLUS 100 ML IV SCH (16:13)
[2024-03-02 16:21] LABS: ALBUMIN 3.7 G/DL (3.2-5.2); ALKALINE PHOSPHATASE 232 U/L (46-116); ALT/SGPT 84 U/L (7.0-40); AST/SGOT 69 U/L (<34); BILIRUBIN,DIRECT 0.7 MG/DL (<0.4); BILIRUBIN,TOTAL 1.6 MG/DL (0.3-1.2); TOTAL PROTEIN 8.2 G/DL (5.7-8.2)
[2024-03-02 21:07] VITALS: BP 135/82; TEMP 98.8; O2SAT 99
[2024-03-02] MEDS: MORPHINE 4 MG/ML 1ML VIAL IV PRN (21:25)
[2024-03-03 04:00] VITALS: BP 136/82; TEMP 97.6; O2SAT 98
[2024-03-03 06:37] LABS: HEMOGLOBIN 11.1 g/dl (13.5-17.5); MEAN CORPUSCULAR HEMOGLOBIN 30.4 pg (27.0-33.0); MEAN CORPUSCULAR HGB CONC 33.6 g/dl (32.0-36.5); MEAN CORPUSCULAR VOLUME 90.4 fl (80.0-96.0); PLATELET COUNT, AUTOMATED 153 10^3/uL (150-450); RED BLOOD COUNT 3.65 10^6/uL (4.30-6.10); WHITE BLOOD COUNT 4.4 10^3/uL (4.0-10.0)
[2024-03-03 06:56] LABS: ALBUMIN 2.9 G/DL (3.2-5.2); ALKALINE PHOSPHATASE 181 U/L (46-116); ALT/SGPT 70 U/L (7.0-40); AST/SGOT 65 U/L (<34); BILIRUBIN,TOTAL 0.5 MG/DL (0.3-1.2); BLOOD UREA NITROGEN 14 MG/DL (9-23); CALCIUM LEVEL 7.9 MG/DL (8.5-10.1); CARBON DIOXIDE LEVEL 28 MMOL/L (20-31); CHLORIDE LEVEL 104 MMOL/L (98-107); CREATININE FOR GFR 0.91 MG/DL (0.70-1.30); GLOMERULAR FILTRATION RATE > 60.0 (>56); GLUCOSE, FASTING 120 MG/DL (60-100); SODIUM LEVEL 136 MMOL/L (136-145); TOTAL PROTEIN 6.8 G/DL (5.7-8.2)
[2024-03-03] MEDS: PIPERACILLIN/TAZOBACTAM SOD 3.375 GM in D5W MINI-BAG PLUS 50 ML IV SCH (11:00)
[2024-03-03 12:00] VITALS: BP 145/88; TEMP 98.6; O2SAT 98
[2024-03-03] MEDS: VANCOMYCIN HCL 1,000 MG, VIAL MATE ADAPTER 1 EACH in D5W 250 ML IV ONE (12:26)
[2024-03-03] MEDS: VANCOMYCIN HCL 1,000 MG, VIAL MATE ADAPTER 1 EACH in D5W 250 ML IV SCH (16:34)
[2024-03-03 20:00] VITALS: BP 141/84; TEMP 98.8; O2SAT 98
[2024-03-04 04:00] VITALS: BP_SYST 112; BP_SYST 149; BP_DIAS 64; BP_DIAS 85; TEMP 97.5; TEMP 98.8; O2SAT 98; O2SAT 99
[2024-03-04 09:52] LABS: BASO % 0.5 % (0.0-1.0); EOS # 0.1 10^3/uL (0.0-0.5); EOS % 1.8 % (0.0-3.0); HEMATOCRIT 31.4 % (42.0-52.0); HEMOGLOBIN 10.4 g/dl (13.5-17.5); LYMPH # 1.3 10^3/uL (1.5-5.0); LYMPH % 28.9 % (24.0-44.0); MEAN CORPUSCULAR HEMOGLOBIN 30.5 pg (27.0-33.0); MEAN CORPUSCULAR HGB CONC 33.1 g/dl (32.0-36.5); MEAN CORPUSCULAR VOLUME 92.1 fl (80.0-96.0); MONO # 0.4 10^3/uL (0.0-0.8); MONO % 8.9 % (2.0-8.0); NEUTROPHILS # 2.6 10^3/uL (1.5-8.5); NEUTROPHILS % 59.2 % (36.0-66.0); RED BLOOD COUNT 3.41 10^6/uL (4.30-6.10); WHITE BLOOD COUNT 4.4 10^3/uL (4.0-10.0)
[2024-03-04 10:29] LABS: ALBUMIN 2.6 G/DL (3.2-5.2); ALKALINE PHOSPHATASE 165 U/L (46-116); ALT/SGPT 66 U/L (7.0-40); AST/SGOT 63 U/L (<34); BILIRUBIN,TOTAL 0.4 MG/DL (0.3-1.2); BLOOD UREA NITROGEN 12 MG/DL (9-23); CALCIUM LEVEL 7.8 MG/DL (8.5-10.1); CARBON DIOXIDE LEVEL 27 MMOL/L (20-31); CHLORIDE LEVEL 105 MMOL/L (98-107); CREATININE FOR GFR 0.91 MG/DL (0.70-1.30); GLOMERULAR FILTRATION RATE > 60.0 (>56); GLUCOSE, FASTING 109 MG/DL (60-100); MAGNESIUM LEVEL 1.6 MG/DL (1.8-2.4); POTASSIUM SERUM 3.8 MMOL/L (3.5-5.1); SODIUM LEVEL 136 MMOL/L (136-145); TOTAL PROTEIN 6.4 G/DL (5.7-8.2)
[2024-03-04 11:21] LABS: VANCOMYCIN LEVEL TROUGH 31.8 UG/ML (10.0-20.0)
[2024-03-04 12:00] VITALS: BP 142/78; TEMP 98.1; O2SAT 95
[2024-03-04] MEDS: VANCOMYCIN HCL 750 MG, VIAL MATE ADAPTER 1 EACH in D5W 250 ML IV SCH (16:39)
[2024-03-04 20:13] VITALS: BP 149/92; TEMP 98.1; O2SAT 98
[2024-03-05 04:00] VITALS: BP 154/92; TEMP 98.1; O2SAT 100
[2024-03-05 08:42] LABS: BASO % 0.7 % (0.0-1.0); EOS # 0.1 10^3/uL (0.0-0.5); EOS % 2.8 % (0.0-3.0); HEMATOCRIT 31.5 % (42.0-52.0); HEMOGLOBIN 10.2 g/dl (13.5-17.5); LYMPH # 1.4 10^3/uL (1.5-5.0); MEAN CORPUSCULAR HEMOGLOBIN 30.3 pg (27.0-33.0); MEAN CORPUSCULAR HGB CONC 32.4 g/dl (32.0-36.5); MEAN CORPUSCULAR VOLUME 93.5 fl (80.0-96.0); MONO # 0.4 10^3/uL (0.0-0.8); MONO % 9.4 % (2.0-8.0); NEUTROPHILS # 2.3 10^3/uL (1.5-8.5); NEUTROPHILS % 53.9 % (36.0-66.0); PLATELET COUNT, AUTOMATED 159 10^3/uL (150-450); RED BLOOD COUNT 3.37 10^6/uL (4.30-6.10); WHITE BLOOD COUNT 4.3 10^3/uL (4.0-10.0)
[2024-03-05 12:00] VITALS: BP 133/80; TEMP 98.4; O2SAT 96
[2024-03-05 15:03] LABS: BLOOD UREA NITROGEN 12 MG/DL (9-23); CALCIUM LEVEL 8.1 MG/DL (8.5-10.1); CARBON DIOXIDE LEVEL 27 MMOL/L (20-31); CHLORIDE LEVEL 107 MMOL/L (98-107); CREATININE FOR GFR 0.95 MG/DL (0.70-1.30); GLOMERULAR FILTRATION RATE > 60.0 (>56); GLUCOSE, FASTING 108 MG/DL (60-100); MAGNESIUM LEVEL 1.7 MG/DL (1.8-2.4); POTASSIUM SERUM 4.1 MMOL/L (3.5-5.1); SODIUM LEVEL 138 MMOL/L (136-145)
[2024-03-05 19:47] VITALS: BP 158/85; TEMP 97.9; O2SAT 99
[2024-03-05] MEDS: HEPARIN SOD (PORCINE) 5000UNITS/ML 1ML VIAL/SYRINGE SC SCH (21:12)
[2024-03-06 04:00] VITALS: BP 143/81; TEMP 98.2; O2SAT 96
[2024-03-06 08:12] LABS: VANCOMYCIN LEVEL TROUGH 17.5 UG/ML (10.0-20.0)
[2024-03-06 08:13] LABS: BLOOD UREA NITROGEN 13 MG/DL (9-23); CALCIUM LEVEL 8.3 MG/DL (8.5-10.1); CARBON DIOXIDE LEVEL 25 MMOL/L (20-31); CHLORIDE LEVEL 109 MMOL/L (98-107); CREATININE FOR GFR 0.93 MG/DL (0.70-1.30); GLOMERULAR FILTRATION RATE > 60.0 (>56); GLUCOSE, FASTING 104 MG/DL (60-100); MAGNESIUM LEVEL 1.8 MG/DL (1.8-2.4); POTASSIUM SERUM 4.3 MMOL/L (3.5-5.1); SODIUM LEVEL 138 MMOL/L (136-145)
[2024-03-06] MEDS: VANCOMYCIN HCL 1,000 MG, VIAL MATE ADAPTER 1 EACH in D5W 250 ML IV SCH (08:34)
[2024-03-06 12:00] VITALS: BP 142/71; TEMP 97.5; O2SAT 98
[2024-03-06] MEDS: AUGMENTIN 875 MG TAB PO SCH (13:03)
[2024-03-06] MEDS ORDERED: PERCOCET 5MG/325MG TAB PO PRN (16:45)
[2024-03-06] MEDS: PERCOCET 5MG/325MG TAB PO PRN (17:12)
[2024-03-06] MEDS: DOXYCYCLINE HYCLATE 100MG TABLET PO SCH (20:42)
[2024-03-06 20:43] VITALS: BP 144/86; TEMP 97.9; O2SAT 99
[2024-03-07] MEDS: ALPRAZolam 0.25 MG TAB PO ONE (03:18)
[2024-03-07 03:49] VITALS: BP 144/86; TEMP 98.1; O2SAT 97
[2024-03-07 07:05] LABS: BLOOD UREA NITROGEN 15 MG/DL (9-23); CALCIUM LEVEL 8.6 MG/DL (8.5-10.1); CARBON DIOXIDE LEVEL 28 MMOL/L (20-31); CHLORIDE LEVEL 107 MMOL/L (98-107); CREATININE FOR GFR 0.82 MG/DL (0.70-1.30); GLOMERULAR FILTRATION RATE > 60.0 (>56); GLUCOSE, FASTING 128 MG/DL (60-100); MAGNESIUM LEVEL 1.9 MG/DL (1.8-2.4); SODIUM LEVEL 138 MMOL/L (136-145)
[2024-03-07] MEDS ORDERED: DOXY100T PO (09:37)
[2024-03-07] MEDS ORDERED: XANA0.25 PO (09:37)
[2024-03-07] MEDS ORDERED: PERCOCET PO (09:37)
[2024-03-07] MEDS ORDERED: AMOX875T2 PO (09:37)
[2024-03-07 12:00] VITALS: BP 148/89; TEMP 97.7; O2SAT 99
== END 2024-03-07 15:38 | disposition home or self-care (01) | DRG 384 ==
LOC: M ED 08:40 → EEVIPCON 13:46 → M ED INP 13:46 → M MSPAV 15:05
PROVIDERS: ADMIT Hospitalist; ATTEND Student in an Organized Health Care Education/Training Program
DX: S51.851A Open bite of right forearm, initial encounter (principal); B19.20 Unspecified viral hepatitis C without hepatic coma; M79.89 Other specified soft tissue disorders; Z59.00 Homelessness unspecified; F60.2 Antisocial personality disorder; F31.9 Bipolar disorder, unspecified; E66.9 Obesity, unspecified; R20.0 Anesthesia of skin; W54.0XXA Bitten by dog, initial encounter; Y92.9 Unspecified place or not applicable; Y93.89 Activity, other specified; Y99.8 Other external cause status

== ENCOUNTER 2024-04-19 19:21 | Emergency (ER) | payer MEDICAID, SELFPAY ==
[~2024-04-19] VITALS: Ht 175.3 cm; Wt 92.0 kg
[~2024-04-19 19:21] MED LIST changes: +AMOX875T2 PO; +DOXY100T PO; +PERCOCET PO; +XANA0.25 PO
[2024-04-20 00:42] VITALS: TEMP 98.5
[2024-04-20 03:30] VITALS: BP 143/84
[2024-04-20 03:51] VITALS: O2SAT 99
== END 2024-04-20 04:01 | disposition home or self-care (01) ==
LOC: EDBD 19:21 → M ED 19:21
DX: F12.10 Cannabis abuse, uncomplicated (principal); F15.10 Other stimulant abuse, uncomplicated; F17.210 Nicotine dependence, cigarettes, uncomplicated; Z79.2 Long term (current) use of antibiotics; Z79.899 Other long term (current) drug therapy

== ENCOUNTER 2024-05-04 01:39 | Emergency (ER) | payer MEDICAID ==
[~2024-05-04] VITALS: Ht 175.3 cm; Wt 96.2 kg
[2024-05-04 02:30] LABS: BASO % 0.5 % (0.0-1.0); EOS # 0.1 10^3/uL (0.0-0.5); EOS % 1.5 % (0.0-3.0); HEMATOCRIT 39.1 % (42.0-52.0); HEMOGLOBIN 13.2 g/dl (13.5-17.5); LYMPH # 1.3 10^3/uL (1.5-5.0); LYMPH % 34.2 % (24.0-44.0); MEAN CORPUSCULAR HEMOGLOBIN 30.5 pg (27.0-33.0); MEAN CORPUSCULAR HGB CONC 33.8 g/dl (32.0-36.5); MEAN CORPUSCULAR VOLUME 90.3 fl (80.0-96.0); MONO # 0.3 10^3/uL (0.0-0.8); MONO % 7.9 % (2.0-8.0); NEUTROPHILS # 2.2 10^3/uL (1.5-8.5); NEUTROPHILS % 55.6 % (36.0-66.0); PLATELET COUNT, AUTOMATED 164 10^3/uL (150-450); RED BLOOD COUNT 4.33 10^6/uL (4.30-6.10); WHITE BLOOD COUNT 3.9 10^3/uL (4.0-10.0)
[2024-05-04 02:43] LABS: INR 1.2; PROTHROMBIN TIME 14.9 SECONDS (12.5-14.5)
[2024-05-04 02:54] LABS: CPK CREATINE PHOSPHOKINASE 105 U/L (46-171)
[2024-05-04 02:55] LABS: ALKALINE PHOSPHATASE 203 U/L (46-116); ALT/SGPT 50 U/L (7.0-40); AST/SGOT 30 U/L (<34); BILIRUBIN,DIRECT 0.3 MG/DL (<0.4); BILIRUBIN,TOTAL 0.7 MG/DL (0.3-1.2); BLOOD UREA NITROGEN 11 MG/DL (9-23); CALCIUM LEVEL 9.6 MG/DL (8.5-10.1); CARBON DIOXIDE LEVEL 26 MMOL/L (20-31); CHLORIDE LEVEL 101 MMOL/L (98-107); CK-MB VALUE MASS < 1.0 NG/ML (<3.6); CREATININE FOR GFR 0.75 MG/DL (0.70-1.30); GLOMERULAR FILTRATION RATE > 60.0 (>56); GLUCOSE, FASTING 101 MG/DL (60-100); MB/CK RELATIVE INDEX 0.95 (< OR =4); POTASSIUM SERUM 3.3 MMOL/L (3.5-5.1); SODIUM LEVEL 135 MMOL/L (136-145); TOTAL PROTEIN 8.5 G/DL (5.7-8.2)
[2024-05-04 07:16] VITALS: BP 159/94; TEMP 98.6; O2SAT 98
[2024-05-04] MEDS ORDERED: AMLO1TAB24 PO (08:19)
== END 2024-05-04 09:15 | disposition home or self-care (01) ==
LOC: EDBD 01:39 → M ED 01:39
DX: I10 Essential (primary) hypertension (principal); J45.909 Unspecified asthma, uncomplicated; Z86.19 Personal history of other infectious and parasitic diseases; F19.10 Other psychoactive substance abuse, uncomplicated; I45.10 Unspecified right bundle-branch block; Z79.2 Long term (current) use of antibiotics; Z79.899 Other long term (current) drug therapy

== ENCOUNTER 2024-05-06 23:18 | Emergency (ER) | payer MEDICAID, OTHER ==
[~2024-05-06] VITALS: Ht 175.3 cm; Wt 96.2 kg
[~2024-05-06 23:18] MED LIST changes: +AMLO1TAB24 PO
[2024-05-07] MEDS: cloNIDine 0.1MG TABLET PO ONE (00:22)
[2024-05-07 01:03] VITALS: BP 158/96; TEMP 98.1; O2SAT 97
== END 2024-05-07 01:35 | disposition home or self-care (01) ==
LOC: M ED 23:18
DX: I10 Essential (primary) hypertension (principal); Z79.2 Long term (current) use of antibiotics; Z79.899 Other long term (current) drug therapy

== ENCOUNTER 2024-06-24 23:29 | Emergency (ER) | payer OTHER ==
[~2024-06-24] VITALS: Ht 170.2 cm; Wt 98.8 kg
[2024-06-24 23:44] VITALS: TEMP 98.1
[2024-06-25] MEDS ORDERED: DULO1CAP5 PO (00:57)
[2024-06-25] MEDS ORDERED: CLON-412 PO (00:57)
[2024-06-25] MEDS ORDERED: MIRT1TAB PO (00:57)
[2024-06-25] MEDS ORDERED: AMLO1TAB25 PO (00:57)
[2024-06-25 01:09] VITALS: BP 162/96
[2024-06-25] MEDS: amLODIPine 5 MG TAB PO ONE (01:09)
[2024-06-25 01:10] VITALS: BP 162/96; O2SAT 99
[2024-06-25 01:16] LABS: BARBITURATES URINE NEGATIVE (NEGATIVE); BENZODIAZEPINES URINE NEGATIVE (NEGATIVE); CANNABINOIDS URINE NEGATIVE (NEGATIVE); METHADONE URINE NEGATIVE (NEGATIVE); OPIATES URINE NEGATIVE (NEGATIVE); PHENCYCLIDINE URINE NEGATIVE (NEGATIVE)
[2024-06-25 01:25] LABS: AMPHETAMINES LEVEL URINE POSITIVE (NEGATIVE); COCAINE METABOLITE URINE POSITIVE (NEGATIVE)
== END 2024-06-25 03:30 | disposition home or self-care (01) ==
LOC: EDBD 23:29 → M ED 23:29
DX: F41.9 Anxiety disorder, unspecified (principal); I10 Essential (primary) hypertension; F43.10 Post-traumatic stress disorder, unspecified; F32.A Depression, unspecified; F19.10 Other psychoactive substance abuse, uncomplicated; F12.10 Cannabis abuse, uncomplicated; F17.210 Nicotine dependence, cigarettes, uncomplicated; Z79.2 Long term (current) use of antibiotics; Z79.899 Other long term (current) drug therapy